=== PATIENT | male | born 1970 | race Caucasian/White ===

== ENCOUNTER 2017-10-09 19:34 | Inpatient (IN) | payer MEDICAID ==
[~2017-10-09] VITALS: Ht 167.6 cm; Wt 78.9 kg
[2017-10-09] MEDS ORDERED: cloNIDine HCL 0.1 MG TAB ONE (20:21)
[2017-10-09] MEDS ORDERED: cloNIDine HCL 0.1 MG TAB PO ONE ×2 (21:00→22:30)
[2017-10-09 21:12] LABS: Basophils # (auto) 0.1 uL; Basophils % (auto) 0.8 % (0.0-2.0); Eosinophils # (auto) 0 uL; Lymphocytes # (auto) 2.1 uL; Red Cell Distribution Width 19.7 % (11.8-14.3)
[2017-10-09 21:15] LABS: Eosinophils % (auto) 0.1 % (0.0-7.0); Hematocrit 45.7 % (41.0-53.0); Hemoglobin 14.3 g/dL (13.5-17.5); Lymphocytes % (auto) 14.4 % (10.0-50.0); Mean Corpuscular Hemoglobin 24.4 pg (28.0-32.0); Mean Corpuscular Hgb Conc. 31.4 g/dL (32.0-36.0); Mean Corpuscular Volume 77.8 fL (80.0-100.0); Monocytes # (auto) 1.3 uL; Monocytes % (auto) 8.9 % (0.0-12.0); Neutrophils # (auto) 11.3 uL; Neutrophils % (auto) 75.8 % (37.0-80.0); Nucleated Red Blood Cells % 0.1 %; Platelet Count (auto) 330 10^3/uL (140-450); Red Blood Cells 5.87 10^6/uL (4.5-5.90); White Blood Cell 14.9 10^3/uL (4.4-10.8)
[2017-10-09 21:28] LABS: Albumin 3.3 g/dL (3.4-5.0); BUN/Creatinine Ratio 26.8; Calcium 8.5 mg/dL (8.5-10.1); Potassium 4.2 mmol/L (3.5-5.1); Total Protein 7.2 g/dL (6.4-8.2)
[2017-10-09] MEDS ORDERED: SODIUM CHLORIDE 0.9% 1,000 ML IV ONE (22:45)
[2017-10-09] MEDS ORDERED: FUROSEMIDE 20 MG/2 ML VIAL IV ONE (23:30)
[2017-10-09] MEDS ORDERED: LABETALOL HCL 200 MG TAB PO ONE (23:30)
[2017-10-10 00:22] LABS: Urine Bacteria NONE SEEN /hpf (None Seen); Urine Blood TRACE /uL (Negative); Urine Hyaline Cast MOD /lpf (0 - 2); Urine Mucus FEW (None Seen); Urine Sperm PRESENT /hpf (None Seen); Urine WBC 1 /hpf (0 - 3)
[2017-10-10 00:36] LABS: Alcohol, Urine < 3.0 mg/dL (0-5); Amphetamine Screen, Urine POSITIVE (NEGATIVE); Barbiturate Scree,Urine NEGATIVE (NEGATIVE); Benzodiazephine Screen, Urine NEGATIVE (NEGATIVE); Cannabinoid Screen, Urine NEGATIVE (NEGATIVE); Cocaine Screen, Urine NEGATIVE (NEGATIVE); Opiate Scree,Urine NEGATIVE (NEGATIVE); Phencyclidine Screen, Urine NEGATIVE (NEGATIVE)
[2017-10-10] MEDS ORDERED: ACETAMINOPHEN 325 MG TAB PO PRN (03:15)
[2017-10-10] MEDS ORDERED: LEVOFLOXACIN 500MG 100 ML IV ONE (03:15)
[2017-10-10] MEDS ORDERED: ENALAPRILAT 1.25 MG/ML-1ML VIAL IV ONE (03:15)
[2017-10-10] MEDS ORDERED: NITROGLYCERIN 0.4 MG SL TAB SL PRN (03:15)
[2017-10-10] MEDS ORDERED: ONDANSETRON HCL 4 MG/2 ML VIAL IV PRN (03:15)
[2017-10-10] MEDS ORDERED: cloNIDine HCL 0.1 MG TAB PO PRN (03:15)
[2017-10-10] MEDS ORDERED: METOPROLOL TARTRATE 25 MG TAB PO ONE (03:15)
[2017-10-10] MEDS ORDERED: HYDROcodone-ACET 5/325MG TAB PO PRN (03:15)
[2017-10-10] MEDS ORDERED: MORPHINE SULFATE 4 MG/ML SYR/VIAL IV PRN (03:15)
[2017-10-10] MEDS ORDERED: hydrALAZINE HCL 20 MG/ML VL ONE (06:38)
[2017-10-10] MEDS ORDERED: hydrALAZINE HCL 20 MG/ML VL IV ONE (06:45)
[2017-10-10 09:10] VITALS: BP 154/106
[2017-10-10] MEDS: FUROSEMIDE 20 MG TAB PO SCH (09:36)
[2017-10-10] MEDS: FAMOTIDINE 20 MG TAB PO SCH ×2 (09:36→22:24)
[2017-10-10] MEDS: ASPirin 81 mg TAB PO SCH (09:37)
[2017-10-10] MEDS: ENOXAPARIN SOD 40 MG/0.4 ML SYRINGE SC SCH (09:38)
[2017-10-10] MEDS ORDERED: ENOXAPARIN SOD 30 MG/0.3 ML SYRINGE SC SCH (10:00)
[2017-10-10] MEDS ORDERED: LISINOPRIL 5 MG TAB PO SCH (10:00)
[2017-10-10] MEDS ORDERED: METOPROLOL TARTRATE 25 MG TAB PO SCH (10:00)
[2017-10-10 10:53] VITALS: BP 149/100
[2017-10-10] MEDS ORDERED: hydrALAZINE HCL 20 MG/ML VL IV PRN (11:45)
[2017-10-10 11:54] VITALS: BP 164/123
[2017-10-10] MEDS ORDERED: BUMETANIDE (0.25MG/ML) 4 ML VIAL IV ONE (14:00)
[2017-10-10] MEDS: hydrALAZINE HCL 25 MG TAB PO SCH ×2 (14:59→22:23)
[2017-10-10] MEDS ORDERED: LISINOPRIL 5 MG TAB PO ONE (15:30)
[2017-10-10 16:59] VITALS: BP 139/95
[2017-10-10 17:15] LABS: Albumin 2.9 g/dL (3.4-5.0)
[2017-10-10 17:18] LABS: Bilirubin, Total 1.6 mg/dL (0.2-1.0); Total Protein 6.7 g/dL (6.4-8.2)
[2017-10-10 17:22] LABS: Bilirubin, Direct 0.7 mg/dL (0-0.2)
[2017-10-10 20:00] VITALS: BP 143/86
[2017-10-10] MEDS: CARVEDILOL 3.125 MG TAB PO SCH (22:23)
[2017-10-10] MEDS: TEMAZEPAM 15 MG CAP PO PRN (22:24)
[2017-10-10 22:56] VITALS: BP 143/86
[2017-10-11 05:19] VITALS: BP 141/95
[2017-10-11 07:48] LABS: Basophils # (auto) 0.1 uL; Eosinophils # (auto) 0.2 uL; Hemoglobin 12.4 g/dL (13.5-17.5); Monocytes % (auto) 12.9 % (0.0-12.0)
[2017-10-11 07:51] LABS: Basophils % (auto) 1.1 % (0.0-2.0); Eosinophils % (auto) 1.5 % (0.0-7.0); Hematocrit 39.1 % (41.0-53.0); Lymphocytes # (auto) 1.7 uL; Lymphocytes % (auto) 16.5 % (10.0-50.0); Mean Corpuscular Hemoglobin 24.2 pg (28.0-32.0); Mean Corpuscular Hgb Conc. 31.7 g/dL (32.0-36.0); Mean Corpuscular Volume 76.1 fL (80.0-100.0); Monocytes # (auto) 1.3 uL; Nucleated Red Blood Cells % 0.1 %; Platelet Count (auto) 213 10^3/uL (140-450); Red Blood Cells 5.14 10^6/uL (4.5-5.90); Red Cell Distribution Width 19.3 % (11.8-14.3); White Blood Cell 10.3 10^3/uL (4.4-10.8)
[2017-10-11 08:06] LABS: Albumin 2.2 g/dL (3.4-5.0); BUN/Creatinine Ratio 34.3; Calcium 7.6 mg/dL (8.5-10.1)
[2017-10-11 08:24] LABS: Bilirubin, Total 1.3 mg/dL (0.2-1.0); Total Protein 5.2 g/dL (6.4-8.2)
[2017-10-11 09:00] VITALS: BP 143/103
[2017-10-11] MEDS ORDERED: POTASSIUM CHLORIDE 40 MEQ, LIDOCAINE 1% (LOCAL ANESTH.) 4 ML in SODIUM CHL 0.9% 100 ML IV ONE (09:30)
[2017-10-11] MEDS ORDERED: BUMETANIDE (0.25 MG/ML) INJ 10ML IV ONE (10:00)
[2017-10-11] MEDS: ENOXAPARIN SOD 40 MG/0.4 ML SYRINGE SC SCH (10:08)
[2017-10-11] MEDS: LEVOFLOXACIN 500MG 100 ML IV SCH (10:08)
[2017-10-11] MEDS: FAMOTIDINE 20 MG TAB PO SCH ×2 (10:08→22:24)
[2017-10-11] MEDS: FUROSEMIDE 20 MG TAB PO SCH (10:09)
[2017-10-11] MEDS: ASPirin 81 mg TAB PO SCH (10:09)
[2017-10-11] MEDS: hydrALAZINE HCL 25 MG TAB PO SCH ×2 (10:10→22:23)
[2017-10-11] MEDS: LISINOPRIL 20 MG TAB PO SCH (10:10)
[2017-10-11] MEDS: CARVEDILOL 3.125 MG TAB PO SCH ×2 (10:11→22:24)
[2017-10-11 13:00] VITALS: BP 141/91
[2017-10-11 17:00] VITALS: BP 134/89
[2017-10-11 20:00] VITALS: BP 141/94
[2017-10-11 20:03] LABS: INR 1.24 (0.9-1.15); Prothrombin Time 13.6 sec (9.37-12.3)
[2017-10-11 21:41] VITALS: BP 160/102
[2017-10-11] MEDS: TEMAZEPAM 15 MG CAP PO PRN (22:24)
[2017-10-12 04:58] VITALS: BP 141/82
[2017-10-12 07:19] LABS: Basophils # (auto) 0.1 uL; Eosinophils # (auto) 0.1 uL; Eosinophils % (auto) 1.2 % (0.0-7.0); Hemoglobin 11.7 g/dL (13.5-17.5); Lymphocytes # (auto) 1.2 uL; Monocytes # (auto) 1.4 uL; White Blood Cell 8.8 10^3/uL (4.4-10.8)
[2017-10-12 07:22] LABS: Basophils % (auto) 0.6 % (0.0-2.0); Hematocrit 36.8 % (41.0-53.0); Lymphocytes % (auto) 13.6 % (10.0-50.0); Mean Corpuscular Hemoglobin 24.2 pg (28.0-32.0); Mean Corpuscular Hgb Conc. 31.8 g/dL (32.0-36.0); Mean Corpuscular Volume 76.1 fL (80.0-100.0); Monocytes % (auto) 15.8 % (0.0-12.0); Neutrophils % (auto) 68.8 % (37.0-80.0); Nucleated Red Blood Cells % 0.1 %; Platelet Count (auto) 239 10^3/uL (140-450); Red Blood Cells 4.84 10^6/uL (4.5-5.90); Red Cell Distribution Width 19.6 % (11.8-14.3)
[2017-10-12 07:38] LABS: Albumin 2.3 g/dL (3.4-5.0); BUN/Creatinine Ratio 34.7; Calcium 7.6 mg/dL (8.5-10.1)
[2017-10-12 07:40] LABS: Bilirubin, Total 0.9 mg/dL (0.2-1.0); Total Protein 5.4 g/dL (6.4-8.2)
[2017-10-12 07:49] LABS: Potassium 2.8 mmol/L (3.5-5.1)
[2017-10-12] MEDS ORDERED: POTASSIUM CHL 20MEQ/100ML 100 ML IV ONE (08:00)
[2017-10-12] MEDS ORDERED: POTASSIUM CHL 20 Meq TABLET PO ONE (08:00)
[2017-10-12 08:39] VITALS: BP 139/90
[2017-10-12] MEDS: ENOXAPARIN SOD 40 MG/0.4 ML SYRINGE SC SCH (10:00)
[2017-10-12] MEDS: FUROSEMIDE 20 MG TAB PO SCH (10:00)
[2017-10-12] MEDS: CARVEDILOL 3.125 MG TAB PO SCH ×2 (10:00→21:31)
[2017-10-12] MEDS: LISINOPRIL 20 MG TAB PO SCH (10:00)
[2017-10-12] MEDS: FAMOTIDINE 20 MG TAB PO SCH ×2 (10:00→21:31)
[2017-10-12] MEDS: ASPirin 81 mg TAB PO SCH (10:00)
[2017-10-12] MEDS ORDERED: LIDOCAINE HCL 2 %PF INJ 10ML AMP IJ ONE (10:41)
[2017-10-12] MEDS ORDERED: IODIXANOL 320MG/ML 100ML BTL IV ONE (10:41)
[2017-10-12] MEDS ORDERED: MIDAZOLAM HCL 1MG/1ML-2 ML VIAL ONE (10:56)
[2017-10-12] MEDS ORDERED: ANGIOMAX 250 MG VIAL IV ONE (10:56)
[2017-10-12] MEDS ORDERED: SODIUM CHL 0.9% 0 ML ONE (10:56)
[2017-10-12] MEDS ORDERED: fentaNYL CITRATE 100 MCG/2 ML VL ONE (10:56)
[2017-10-12] MEDS ORDERED: NITROGLYCERIN 0.4MG/DOSE SPRAY 4.9GM ONE (11:27)
[2017-10-12] MEDS ORDERED: hydrALAZINE HCL 20 MG/ML VL ONE (11:31)
[2017-10-12] MEDS ORDERED: METOPROLOL TARTRATE 1MG/1ML-5ML VIAL IV ONE (11:34)
[2017-10-12] MEDS ORDERED: BUMETANIDE (0.25 MG/ML) INJ 10ML IV ONE (11:45)
[2017-10-12] MEDS ORDERED: hydrALAZINE HCL 25 MG TAB PO ONE (12:00)
[2017-10-12] MEDS ORDERED: POTASSIUM CHLORIDE 80 MEQ, LIDOCAINE 1% (LOCAL ANESTH.) 6 ML in SODIUM CHL 0.9% 500 ML IV ONE (12:15)
[2017-10-12] MEDS ORDERED: POTASSIUM CHLORIDE 40 MEQ, LIDOCAINE 1% (LOCAL ANESTH.) 4 ML in SODIUM CHL 0.9% 100 ML IV ONE (13:30)
[2017-10-12] MEDS: LEVOFLOXACIN 500MG 100 ML IV SCH (14:03)
[2017-10-12 14:25] VITALS: BP 138/93
[2017-10-12 17:44] VITALS: BP 145/89
[2017-10-12] MEDS: hydrALAZINE HCL 25 MG TAB PO SCH (21:30)
[2017-10-12] MEDS: TEMAZEPAM 15 MG CAP PO PRN (21:31)
[2017-10-12] MEDS: POTASSIUM CHL 20 Meq TABLET PO SCH (21:31)
[2017-10-12 21:44] VITALS: BP 141/102
[2017-10-13 05:00] VITALS: BP 147/98
[2017-10-13 06:41] LABS: Mean Corpuscular Volume 76.5 fL (80.0-100.0); Red Blood Cells 4.65 10^6/uL (4.5-5.90)
[2017-10-13 06:42] LABS: Hematocrit 35.6 % (41.0-53.0); Hemoglobin 11.4 g/dL (13.5-17.5); Mean Corpuscular Hemoglobin 24.5 pg (28.0-32.0); Platelet Count (auto) 230 10^3/uL (140-450); Red Cell Distribution Width 19.3 % (11.8-14.3); White Blood Cell 9.4 10^3/uL (4.4-10.8)
[2017-10-13 06:56] LABS: Band Neutrophils % (manual) 0; Basophils % (manual) 0 (0.0-2.0); Metamyelocytes % 0; Myelocytes % 0
[2017-10-13 06:57] LABS: Blast Cells 0; Promyelocytes % 0; Reactive Lymphocytes 0
[2017-10-13 07:05] LABS: Albumin 2.3 g/dL (3.4-5.0); BUN/Creatinine Ratio 34.9; Calcium 7.7 mg/dL (8.5-10.1); Magnesium 1.8 mg/dL (1.6-2.6)
[2017-10-13 07:09] LABS: Bilirubin, Total 0.9 mg/dL (0.2-1.0); Total Protein 5.9 g/dL (6.4-8.2)
[2017-10-13 08:08] LABS: Eosinophils % (manual) 2 (0-7); Lymphocytes % (manual) 21 (10.0-50.0); Monocytes % (manual) 15 (0-12)
[2017-10-13 08:37] VITALS: BP 152/122
[2017-10-13] MEDS ORDERED: LABETALOL HCL 5 MG/ML ML 20ML VIAL IV ONE (09:58)
[2017-10-13 09:59] LABS: Hepatitis B Surface Antibody Negative
[2017-10-13] MEDS ORDERED: LABETALOL HCL 5 MG/ML ML 20ML VIAL IV PRN (10:00)
[2017-10-13] MEDS: LEVOFLOXACIN 500MG 100 ML IV SCH (10:00)
[2017-10-13] MEDS: ENOXAPARIN SOD 40 MG/0.4 ML SYRINGE SC SCH (10:00)
[2017-10-13 10:10] LABS: Hepatitis B Surface Antigen Negative (Negative)
[2017-10-13 10:37] LABS: Hepatitis C Antibody Negative (Negative)
[2017-10-13 10:38] LABS: Hepatitis A Total Antibody Negative; Hepatitis B Core Total AB Negative
[2017-10-13] MEDS: CARVEDILOL 3.125 MG TAB PO SCH (10:42)
[2017-10-13] MEDS: ASPirin 81 mg TAB PO SCH (10:42)
[2017-10-13] MEDS: FUROSEMIDE 20 MG TAB PO SCH (10:43)
[2017-10-13] MEDS: LISINOPRIL 20 MG TAB PO SCH (10:43)
[2017-10-13] MEDS: FAMOTIDINE 20 MG TAB PO SCH (10:43)
[2017-10-13] MEDS: hydrALAZINE HCL 25 MG TAB PO SCH (10:44)
[2017-10-13] MEDS: POTASSIUM CHL 20 Meq TABLET PO SCH (10:44)
[2017-10-13 13:03] VITALS: BP 131/92
== END 2017-10-13 19:00 | disposition home or self-care (01) | DRG 720 ==
LOC: ER 19:34 → TELE 19:35 → TELE-CENTR 10-10 07:37
PROVIDERS: ADMIT Nurse Practitioner; ATTEND Internal Medicine
PROC: 4A023N7 Measurement of Cardiac Sampling and Pressure, Left Heart, Percutaneous Approach (ICD-10-PCS; principal; 2017-10-12)
PROC: B2111ZZ Fluoroscopy of Multiple Coronary Arteries using Low Osmolar Contrast (ICD-10-PCS; 2017-10-12)
DX: A41.9 Sepsis, unspecified organism (principal); I21.4 Non-ST elevation (NSTEMI) myocardial infarction; I50.43 Acute on chronic combined systolic (congestive) and diastolic (congestive) heart failure; N17.9 Acute kidney failure, unspecified; J18.9 Pneumonia, unspecified organism; I13.0 Hypertensive heart and chronic kidney disease with heart failure and stage 1 through stage 4 chronic kidney disease, or unspecified chronic kidney disease; R18.8 Other ascites; I16.1 Hypertensive emergency; E87.6 Hypokalemia; F10.10 Alcohol abuse, uncomplicated; F15.10 Other stimulant abuse, uncomplicated; F17.210 Nicotine dependence, cigarettes, uncomplicated; I70.0 Atherosclerosis of aorta; N18.9 Chronic kidney disease, unspecified; N48.89 Other specified disorders of penis; N50.89 Other specified disorders of the male genital organs; Z91.19 Patient's noncompliance with other medical treatment and regimen
CPT/HCPCS: 36415; 71045; 71250; 74176; 76705; 80053; 80076; 80307; 81001; 82140; 83735; 83880; 84484; 85007; 85025; 85027; 85610; 86704; 86706; 86708; 86803; 86850; 86900; 86901; 87340; 93005; 93306; 93458; 96365; 96375; 99152; J1956; J2001; J2250; J3480; Q9967

== ENCOUNTER 2018-03-12 17:56 | Inpatient (IN) | payer MEDICAID ==
[~2018-03-12] VITALS: Ht 167.6 cm; Wt 83.8 kg
[2018-03-12] MEDS ORDERED: cloNIDine HCL 0.1 MG TAB ONE (18:11)
[2018-03-12] MEDS ORDERED: cloNIDine HCL 0.1 MG TAB PO ONE (18:15)
[2018-03-12] MEDS ORDERED: FUROSEMIDE 40 MG/4 ML VIAL IV ONE (19:15)
[2018-03-12 20:01] LABS: Eosinophils # (auto) 0.1 uL; Hemoglobin 12.3 g/dL (13.5-17.5); Mean Corpuscular Hgb Conc. 32.3 g/dL (32.0-36.0); Nucleated Red Blood Cells % 0.1 %; Red Blood Cells 5.47 10^6/uL (4.5-5.90)
[2018-03-12 20:03] LABS: Basophils # (auto) 0.1 uL; Basophils % (auto) 1.2 % (0.0-2.0); Eosinophils % (auto) 1.6 % (0.0-7.0); Lymphocytes # (auto) 1.8 uL; Lymphocytes % (auto) 21.9 % (10.0-50.0); Mean Corpuscular Hemoglobin 22.4 pg (28.0-32.0); Mean Corpuscular Volume 69.5 fL (80.0-100.0); Monocytes # (auto) 0.8 uL; Neutrophils # (auto) 5.6 uL; Neutrophils % (auto) 66.3 % (37.0-80.0); Platelet Count (auto) 229 10^3/uL (140-450); Red Cell Distribution Width 19.7 % (11.8-14.3); White Blood Cell 8.4 10^3/uL (4.4-10.8)
[2018-03-12 20:26] LABS: Albumin 2.9 g/dL (3.4-5.0); BUN/Creatinine Ratio 28.2; Calcium 7.9 mg/dL (8.5-10.1); Magnesium 1.9 mg/dL (1.6-2.6); Potassium 3.3 mmol/L (3.5-5.1)
[2018-03-12 20:31] LABS: Bilirubin, Total 1.4 mg/dL (0.2-1.0); Total Protein 6.3 g/dL (6.4-8.2)
[2018-03-12] MEDS ORDERED: MORPHINE SULF INJ 2 MG/ML SYRINGE 1ML ONE (20:37)
[2018-03-12] MEDS ORDERED: ENALAPRIL MALEATE 2.5 MG TAB ONE (20:38)
[2018-03-12] MEDS ORDERED: PROMETHAZINE HCL 25 MG/ML 1ML ONE (20:48)
[2018-03-12] MEDS ORDERED: ACETAMINOPHEN 325 MG TAB PO PRN (21:00)
[2018-03-12] MEDS ORDERED: DOCUSATE SOD 100 MG CAP PO PRN (21:00)
[2018-03-12] MEDS ORDERED: MORPHINE SULF INJ 2 MG/ML SYRINGE 1ML IV PRN (21:00)
[2018-03-12] MEDS ORDERED: NITROGLYCERIN 0.4 MG SL TAB SL PRN (21:00)
[2018-03-12] MEDS ORDERED: ENALAPRILAT 1.25 MG/ML-1ML VIAL IV ONE (21:00)
[2018-03-12] MEDS ORDERED: MORPHINE SULF INJ 2 MG/ML SYRINGE 1ML IV ONE (21:00)
[2018-03-12] MEDS ORDERED: POTASSIUM CHL 20 Meq TABLET PO ONE (21:00)
[2018-03-12] MEDS ORDERED: PROMETHAZINE HCL 25 MG/ML 1ML IV ONE (21:00)
[2018-03-12] MEDS ORDERED: HYDROcodone-ACET 5/325MG TAB PO PRN (21:00)
[2018-03-12 21:30] LABS: Urine Bacteria FEW /hpf (None Seen); Urine Blood TRACE /uL (Negative); Urine Specific Gravity 1.012 (1.001-1.035); Urine WBC 1 /hpf (0 - 3)
[2018-03-12 21:46] LABS: Alcohol, Urine < 3.0 mg/dL (0-5); Amphetamine Screen, Urine POSITIVE (NEGATIVE); Barbiturate Scree,Urine NEGATIVE (NEGATIVE); Benzodiazephine Screen, Urine NEGATIVE (NEGATIVE); Cannabinoid Screen, Urine NEGATIVE (NEGATIVE); Cocaine Screen, Urine NEGATIVE (NEGATIVE); Opiate Scree,Urine NEGATIVE (NEGATIVE); Phencyclidine Screen, Urine NEGATIVE (NEGATIVE)
[2018-03-12] MEDS: hydrALAZINE HCL 25 MG TAB PO SCH (22:06)
[2018-03-12] MEDS: FAMOTIDINE 20 MG TAB PO SCH (22:14)
[2018-03-12] MEDS: CARVEDILOL 3.125 MG TAB PO SCH (22:14)
[2018-03-12] MEDS ORDERED: cloNIDine HCL 0.1 MG TAB PO PRN (23:00)
[2018-03-13] MEDS ORDERED: cloNIDine HCL 0.1 MG TAB ONE (00:32)
[2018-03-13] MEDS ORDERED: ENALAPRILAT 1.25 MG/ML-1ML VIAL IV ONE (01:15)
[2018-03-13 02:30] VITALS: BP 143/94
[2018-03-13 05:00] VITALS: BP 139/100
[2018-03-13] MEDS: FUROSEMIDE 20 MG/2 ML VIAL IV SCH ×2 (05:49→18:19)
[2018-03-13 07:14] LABS: Eosinophils # (auto) 0.2 uL; Nucleated Red Blood Cells % 0.1 %
[2018-03-13 07:16] LABS: Basophils # (auto) 0.2 uL; Basophils % (auto) 2.4 % (0.0-2.0); Eosinophils % (auto) 2.6 % (0.0-7.0); Hematocrit 35.2 % (41.0-53.0); Hemoglobin 11.4 g/dL (13.5-17.5); Lymphocytes # (auto) 1.6 uL; Lymphocytes % (auto) 21.6 % (10.0-50.0); Mean Corpuscular Hemoglobin 22.5 pg (28.0-32.0); Mean Corpuscular Hgb Conc. 32.4 g/dL (32.0-36.0); Mean Corpuscular Volume 69.6 fL (80.0-100.0); Monocytes # (auto) 0.7 uL; Monocytes % (auto) 9.3 % (0.0-12.0); Neutrophils # (auto) 4.6 uL; Neutrophils % (auto) 64.1 % (37.0-80.0); Platelet Count (auto) 192 10^3/uL (140-450); Red Blood Cells 5.06 10^6/uL (4.5-5.90); Red Cell Distribution Width 19.5 % (11.8-14.3); White Blood Cell 7.2 10^3/uL (4.4-10.8)
[2018-03-13 07:42] LABS: Albumin 2.6 g/dL (3.4-5.0); Potassium 3.3 mmol/L (3.5-5.1)
[2018-03-13 07:50] LABS: BUN/Creatinine Ratio 27.8; Calcium 8.2 mg/dL (8.5-10.1); Total Protein 5.1 g/dL (6.4-8.2)
[2018-03-13 07:57] LABS: Bilirubin, Total 1.6 mg/dL (0.2-1.0)
[2018-03-13 09:00] VITALS: BP 138/99
[2018-03-13] MEDS ORDERED: LISINOPRIL 20 MG TAB PO SCH (10:00)
[2018-03-13] MEDS: ASPirin 81 mg TAB PO SCH (10:38)
[2018-03-13] MEDS: hydrALAZINE HCL 25 MG TAB PO SCH ×2 (10:38→22:03)
[2018-03-13] MEDS: CARVEDILOL 3.125 MG TAB PO SCH ×2 (10:38→22:02)
[2018-03-13] MEDS: FAMOTIDINE 20 MG TAB PO SCH ×2 (10:39→22:02)
[2018-03-13] MEDS: ENOXAPARIN SOD 40 MG/0.4 ML SYRINGE SC SCH (10:39)
[2018-03-13] MEDS: POTASSIUM CHL 20 Meq TABLET PO SCH (10:39)
[2018-03-13] MEDS ORDERED: POTASSIUM CHL 20 Meq TABLET PO ONE (12:00)
[2018-03-13] MEDS ORDERED: cloNIDine HCL 0.1 MG TAB PO PRN (12:15)
[2018-03-13 13:00] VITALS: BP 113/79
[2018-03-13] MEDS ORDERED: CALCIUM CARB 500 MG CHEW TAB PO PRN (16:00)
[2018-03-13 17:20] VITALS: BP 116/75
[2018-03-13 22:00] VITALS: BP 126/86
[2018-03-14 05:00] VITALS: BP 143/99
[2018-03-14] MEDS: FUROSEMIDE 20 MG/2 ML VIAL IV SCH ×2 (05:34→17:23)
[2018-03-14 06:25] LABS: Mean Corpuscular Hemoglobin 22.3 pg (28.0-32.0); Monocytes # (auto) 0.7 uL; Nucleated Red Blood Cells % 0.1 %; Red Cell Distribution Width 19.3 % (11.8-14.3)
[2018-03-14 06:27] LABS: Basophils # (auto) 0.1 uL; Basophils % (auto) 2.1 % (0.0-2.0); Eosinophils # (auto) 0.2 uL; Eosinophils % (auto) 3.5 % (0.0-7.0); Hematocrit 35.5 % (41.0-53.0); Hemoglobin 11.2 g/dL (13.5-17.5); Lymphocytes # (auto) 1.5 uL; Mean Corpuscular Hgb Conc. 31.7 g/dL (32.0-36.0); Mean Corpuscular Volume 70.5 fL (80.0-100.0); Monocytes % (auto) 10.6 % (0.0-12.0); Neutrophils # (auto) 4.4 uL; Neutrophils % (auto) 62.8 % (37.0-80.0); Platelet Count (auto) 201 10^3/uL (140-450); Red Blood Cells 5.04 10^6/uL (4.5-5.90)
[2018-03-14 06:54] LABS: BUN/Creatinine Ratio 27.8; Calcium 7.8 mg/dL (8.5-10.1); Potassium 3.4 mmol/L (3.5-5.1)
[2018-03-14] MEDS ORDERED: POTASSIUM EFFERVESENT TAB 25 MEQ PO ONE (08:00)
[2018-03-14 09:00] VITALS: BP 152/86
[2018-03-14] MEDS: CARVEDILOL 3.125 MG TAB PO SCH ×2 (10:50→22:11)
[2018-03-14] MEDS: ASPirin 81 mg TAB PO SCH (10:51)
[2018-03-14] MEDS: hydrALAZINE HCL 25 MG TAB PO SCH ×2 (10:51→22:08)
[2018-03-14] MEDS: LISINOPRIL 20 MG TAB PO SCH (10:52)
[2018-03-14] MEDS: POTASSIUM CHL 20 Meq TABLET PO SCH (10:52)
[2018-03-14] MEDS: ENOXAPARIN SOD 40 MG/0.4 ML SYRINGE SC SCH (10:53)
[2018-03-14] MEDS: FAMOTIDINE 20 MG TAB PO SCH ×2 (10:53→22:08)
[2018-03-14 13:00] VITALS: BP 145/99
[2018-03-14 17:07] VITALS: BP 136/96
[2018-03-14 22:00] VITALS: BP 135/88
[2018-03-15] MEDS: FUROSEMIDE 20 MG/2 ML VIAL IV SCH (05:31)
[2018-03-15 05:45] VITALS: BP 130/92
[2018-03-15 07:09] LABS: Basophils # (auto) 0.2 uL; Eosinophils # (auto) 0.3 uL; Lymphocytes # (auto) 1.7 uL; Monocytes # (auto) 1.1 uL; White Blood Cell 8.6 10^3/uL (4.4-10.8)
[2018-03-15 07:13] LABS: Basophils % (auto) 2.3 % (0.0-2.0); Hematocrit 36.3 % (41.0-53.0); Hemoglobin 11.4 g/dL (13.5-17.5); Lymphocytes % (auto) 20.4 % (10.0-50.0); Mean Corpuscular Hgb Conc. 31.5 g/dL (32.0-36.0); Mean Corpuscular Volume 70.3 fL (80.0-100.0); Monocytes % (auto) 13.1 % (0.0-12.0); Neutrophils # (auto) 5.2 uL; Neutrophils % (auto) 61.2 % (37.0-80.0); Platelet Count (auto) 225 10^3/uL (140-450); Red Blood Cells 5.16 10^6/uL (4.5-5.90); Red Cell Distribution Width 19.2 % (11.8-14.3)
[2018-03-15 07:15] LABS: BUN/Creatinine Ratio 29.4; Calcium 8.1 mg/dL (8.5-10.1); Potassium 3.7 mmol/L (3.5-5.1)
[2018-03-15 07:16] LABS: Mean Corpuscular Hemoglobin 22.2 pg (28.0-32.0)
[2018-03-15 09:23] VITALS: BP 142/90
[2018-03-15] MEDS: ENOXAPARIN SOD 40 MG/0.4 ML SYRINGE SC SCH (10:43)
[2018-03-15] MEDS: CARVEDILOL 3.125 MG TAB PO SCH (10:44)
[2018-03-15] MEDS: ASPirin 81 mg TAB PO SCH (10:45)
[2018-03-15] MEDS: POTASSIUM CHL 20 Meq TABLET PO SCH (10:45)
[2018-03-15] MEDS: LISINOPRIL 20 MG TAB PO SCH (10:47)
[2018-03-15] MEDS: FAMOTIDINE 20 MG TAB PO SCH (10:47)
[2018-03-15] MEDS: hydrALAZINE HCL 25 MG TAB PO SCH (10:50)
[2018-03-15 13:00] VITALS: BP 145/95
== END 2018-03-15 14:10 | disposition home or self-care (01) | DRG 194 ==
LOC: ER 17:57 → TELE 17:58 → TELE-WESTW 03-13 02:06
PROVIDERS: ADMIT Nurse Practitioner; ATTEND Internal Medicine
DX: I11.0 Hypertensive heart disease with heart failure (principal); E43 Unspecified severe protein-calorie malnutrition; D63.8 Anemia in other chronic diseases classified elsewhere; E87.6 Hypokalemia; E78.5 Hyperlipidemia, unspecified; I16.0 Hypertensive urgency; F15.10 Other stimulant abuse, uncomplicated; M21.969 Unspecified acquired deformity of unspecified lower leg; M21.949 Unspecified acquired deformity of hand, unspecified hand; F17.210 Nicotine dependence, cigarettes, uncomplicated; I50.43 Acute on chronic combined systolic (congestive) and diastolic (congestive) heart failure; R07.89 Other chest pain; Z82.0 Family history of epilepsy and other diseases of the nervous system; Z81.8 Family history of other mental and behavioral disorders; Z80.42 Family history of malignant neoplasm of prostate; Z82.49 Family history of ischemic heart disease and other diseases of the circulatory system; Z88.3 Allergy status to other anti-infective agents; Z68.29 Body mass index [BMI] 29.0-29.9, adult; Z83.3 Family history of diabetes mellitus; Z91.14 Patient's other noncompliance with medication regimen
CPT/HCPCS: 36415; 51702; 71045; 80048; 80053; 80307; 81001; 83605; 83735; 83880; 84484; 85025; 93005; 93306; 94761; 96374; 96375; 96376; 99291

== ENCOUNTER 2018-04-13 17:17 | Inpatient (IN) | payer MEDICAID ==
[~2018-04-13] VITALS: Ht 167.6 cm; Wt 80.5 kg
[2018-04-13] MEDS ORDERED: cloNIDine HCL 0.1 MG TAB PO ONE (17:30)
[2018-04-13] MEDS ORDERED: FUROSEMIDE 40 MG/4 ML VIAL IV ONE (23:15)
[2018-04-13 23:42] LABS: Basophils # (auto) 0.1 uL; Eosinophils # (auto) 0.2 uL; Eosinophils % (auto) 2.2 % (0.0-7.0); Hemoglobin 12.6 g/dL (13.5-17.5); Monocytes # (auto) 0.8 uL
[2018-04-13 23:44] LABS: Hematocrit 39.5 % (41.0-53.0); Lymphocytes % (auto) 23.2 % (10.0-50.0); Mean Corpuscular Hemoglobin 21.4 pg (28.0-32.0); Mean Corpuscular Hgb Conc. 31.8 g/dL (32.0-36.0); Mean Corpuscular Volume 67.2 fL (80.0-100.0); Monocytes % (auto) 9.8 % (0.0-12.0); Neutrophils # (auto) 5.5 uL; Neutrophils % (auto) 63.8 % (37.0-80.0); Platelet Count (auto) 212 10^3/uL (140-450); Red Blood Cells 5.88 10^6/uL (4.5-5.90); White Blood Cell 8.6 10^3/uL (4.4-10.8)
[2018-04-13 23:47] LABS: Urine Bacteria NONE SEEN /hpf (None Seen); Urine Blood Negative /uL (Negative); Urine Specific Gravity 1.008 (1.001-1.035); Urine WBC 1 /hpf (0 - 3)
[2018-04-13 23:51] LABS: Red Cell Distribution Width 20.9 % (11.8-14.3)
[2018-04-13 23:59] LABS: Potassium 3.4 mmol/L (3.5-5.1)
[2018-04-14] LABS: INR 1.23 (0.9-1.15); Partial Thromboplastin Time 26.7 sec (23.78-33.04)
[2018-04-14 00:01] LABS: Alcohol, Urine < 3.0 mg/dL (0-5); Amphetamine Screen, Urine POSITIVE (NEGATIVE); Barbiturate Scree,Urine NEGATIVE (NEGATIVE); Benzodiazephine Screen, Urine NEGATIVE (NEGATIVE); Cannabinoid Screen, Urine NEGATIVE (NEGATIVE); Cocaine Screen, Urine NEGATIVE (NEGATIVE); Opiate Scree,Urine NEGATIVE (NEGATIVE); Phencyclidine Screen, Urine NEGATIVE (NEGATIVE)
[2018-04-14 00:04] LABS: BUN/Creatinine Ratio 26.9; Calcium 7.7 mg/dL (8.5-10.1); Magnesium 1.8 mg/dL (1.6-2.6)
[2018-04-14 00:08] LABS: Bilirubin, Total 1.6 mg/dL (0.2-1.0); Total Protein 6.5 g/dL (6.4-8.2)
[2018-04-14] MEDS ORDERED: IOHEXOL 350 MG/ML 100ML IJ ONE (01:12)
[2018-04-14] MEDS ORDERED: cloNIDine HCL 0.1 MG TAB ONE (03:03)
[2018-04-14] MEDS ORDERED: ACETAMINOPHEN 325 MG TAB PO PRN (04:30)
[2018-04-14] MEDS ORDERED: HYDROcodone-ACET 5/325MG TAB PO PRN (04:30)
[2018-04-14] MEDS ORDERED: MORPHINE SULFATE 4 MG/ML SYR/VIAL IV PRN (04:30)
[2018-04-14] MEDS ORDERED: TEMAZEPAM 15 MG CAP PO PRN (04:30)
[2018-04-14] MEDS ORDERED: NITROGLYCERIN 0.4 MG SL TAB SL PRN (04:30)
[2018-04-14] MEDS ORDERED: ONDANSETRON HCL 4 MG/2 ML VIAL IV PRN (04:30)
[2018-04-14] MEDS ORDERED: ENALAPRILAT 1.25 MG/ML-1ML VIAL IV ONE ×2 (04:45→04:59)
[2018-04-14] MEDS ORDERED: FUROSEMIDE 20 MG/2 ML VIAL IV SCH (06:00)
[2018-04-14] MEDS: CARVEDILOL 3.125 MG TAB PO SCH ×2 (07:14→18:58)
[2018-04-14] MEDS ORDERED: cloNIDine HCL 0.1 MG TAB PO PRN (07:15)
[2018-04-14 09:05] VITALS: BP 142/96
[2018-04-14] MEDS: hydrALAZINE HCL 25 MG TAB PO SCH ×2 (09:22→22:16)
[2018-04-14] MEDS: LISINOPRIL 20 MG TAB PO SCH (09:22)
[2018-04-14] MEDS: ASPirin 81 mg TAB PO SCH (09:23)
[2018-04-14] MEDS: FAMOTIDINE 20 MG TAB PO SCH ×2 (09:23→22:16)
[2018-04-14 09:30] VITALS: BP 142/96
[2018-04-14] MEDS ORDERED: cloNIDine HCL 0.1 MG TAB PO ONE (10:00)
[2018-04-14] MEDS ORDERED: POTASSIUM CHL 20 Meq TABLET PO ONE (11:15)
[2018-04-14] MEDS ORDERED: SULFAMETHOX W/TRIMETH(800/160MG) DS TAB PO ONE (11:15)
[2018-04-14 12:00] VITALS: BP 136/88
[2018-04-14] MEDS: SPIRONOLACTONE 25 MG TAB PO SCH (13:05)
[2018-04-14 16:54] VITALS: BP 136/94
[2018-04-14] MEDS: FUROSEMIDE 20 MG/2 ML VIAL IV SCH (18:58)
[2018-04-14 21:36] VITALS: BP 145/95
[2018-04-14] MEDS: SULFAMETHOX W/TRIMETH(800/160MG) DS TAB PO SCH (22:16)
[2018-04-15 04:43] VITALS: BP 153/102
[2018-04-15] MEDS: FUROSEMIDE 20 MG/2 ML VIAL IV SCH (05:39)
[2018-04-15 06:14] LABS: Lymphocytes # (auto) 1.6 uL
[2018-04-15 06:17] LABS: Basophils # (auto) 0.3 uL; Basophils % (auto) 4.1 % (0.0-2.0); Eosinophils # (auto) 0.3 uL; Hematocrit 34.9 % (41.0-53.0); Hemoglobin 11.1 g/dL (13.5-17.5); Mean Corpuscular Hemoglobin 21.3 pg (28.0-32.0); Mean Corpuscular Hgb Conc. 31.9 g/dL (32.0-36.0); Mean Corpuscular Volume 66.6 fL (80.0-100.0); Monocytes % (auto) 14.8 % (0.0-12.0); Neutrophils # (auto) 3.7 uL; Neutrophils % (auto) 53.1 % (37.0-80.0); Nucleated Red Blood Cells % 0.1 %; Red Blood Cells 5.23 10^6/uL (4.5-5.90); White Blood Cell 6.9 10^3/uL (4.4-10.8)
[2018-04-15 06:18] LABS: Red Cell Distribution Width 20.8 % (11.8-14.3)
[2018-04-15 06:19] LABS: Platelet Count (auto) 199 10^3/uL (140-450)
[2018-04-15 06:35] LABS: Albumin 2.6 g/dL (3.4-5.0); Calcium 8.1 mg/dL (8.5-10.1); Potassium 3.4 mmol/L (3.5-5.1)
[2018-04-15 06:37] LABS: BUN/Creatinine Ratio 27.3
[2018-04-15 06:40] LABS: Bilirubin, Total 1.2 mg/dL (0.2-1.0); Total Protein 5.8 g/dL (6.4-8.2)
[2018-04-15] MEDS ORDERED: POTASSIUM EFFERVESENT TAB 25 MEQ PO ONE (08:15)
[2018-04-15 08:42] VITALS: BP 158/104
[2018-04-15] MEDS: LISINOPRIL 20 MG TAB PO SCH (09:02)
[2018-04-15] MEDS: FAMOTIDINE 20 MG TAB PO SCH (09:03)
[2018-04-15] MEDS: ASPirin 81 mg TAB PO SCH (09:03)
[2018-04-15] MEDS: SPIRONOLACTONE 25 MG TAB PO SCH (09:03)
[2018-04-15] MEDS: SULFAMETHOX W/TRIMETH(800/160MG) DS TAB PO SCH (09:04)
[2018-04-15] MEDS: hydrALAZINE HCL 25 MG TAB PO SCH (09:04)
[2018-04-15] MEDS: CARVEDILOL 3.125 MG TAB PO SCH (09:04)
[2018-04-15] MEDS ORDERED: POTASSIUM CHL 20 Meq TABLET PO SCH (10:00)
== END 2018-04-15 12:25 | disposition home or self-care (01) | DRG 194 ==
LOC: ER 17:17 → TELE 17:18 → TELE-WESTW 04-14 09:11
PROVIDERS: ADMIT Nurse Practitioner; ATTEND Internal Medicine
DX: I11.0 Hypertensive heart disease with heart failure (principal); I27.21 Secondary pulmonary arterial hypertension; R18.8 Other ascites; E44.0 Moderate protein-calorie malnutrition; F15.20 Other stimulant dependence, uncomplicated; D63.8 Anemia in other chronic diseases classified elsewhere; E11.9 Type 2 diabetes mellitus without complications; E78.5 Hyperlipidemia, unspecified; E87.6 Hypokalemia; I50.43 Acute on chronic combined systolic (congestive) and diastolic (congestive) heart failure; Z68.28 Body mass index [BMI] 28.0-28.9, adult; F17.210 Nicotine dependence, cigarettes, uncomplicated; I16.0 Hypertensive urgency; M21.949 Unspecified acquired deformity of hand, unspecified hand; M21.969 Unspecified acquired deformity of unspecified lower leg; Z82.0 Family history of epilepsy and other diseases of the nervous system; Z91.19 Patient's noncompliance with other medical treatment and regimen; Z90.49 Acquired absence of other specified parts of digestive tract; R59.0 Localized enlarged lymph nodes
CPT/HCPCS: 36415; 71045; 71275; 80053; 80307; 80320; 81001; 83735; 83880; 84484; 85025; 85379; 85610; 85730; 93005; 94761; 96374; 96375; 96376

== ENCOUNTER 2018-06-22 16:17 | Emergency (ER) | payer MEDICAID ==
[~2018-06-22] VITALS: Ht 165.1 cm; Wt 72.6 kg
[2018-06-22 16:46] VITALS: BP 179/76
== END 2018-06-22 21:28 | disposition home or self-care (01) ==
LOC: ER 16:17
DX: S01.111A Laceration without foreign body of right eyelid and periocular area, initial encounter (principal); S09.8XXA Other specified injuries of head, initial encounter; I11.0 Hypertensive heart disease with heart failure; I50.9 Heart failure, unspecified; E78.5 Hyperlipidemia, unspecified; F17.210 Nicotine dependence, cigarettes, uncomplicated; F15.10 Other stimulant abuse, uncomplicated; W18.00XA Striking against unspecified object with subsequent fall, initial encounter; Y93.89 Activity, other specified; Y92.098 Other place in other non-institutional residence as the place of occurrence of the external cause; Y99.8 Other external cause status
CPT/HCPCS: 70450; 70486

== ENCOUNTER 2018-07-10 19:28 | Emergency (ER) | payer MEDICAID ==
[~2018-07-10] VITALS: Ht 165.1 cm; Wt 81.6 kg
[2018-07-10] MEDS ORDERED: cloNIDine HCL 0.1 MG TAB ONE (19:49)
[2018-07-10] MEDS ORDERED: cloNIDine HCL 0.1 MG TAB PO ONE (20:00)
[2018-07-10 21:06] LABS: Basophils # (auto) 0.1 uL
[2018-07-10 21:07] LABS: Eosinophils # (auto) 0.1 uL; Eosinophils % (auto) 1.6 % (0.0-7.0); Hematocrit 39.1 % (41.0-53.0); Lymphocytes # (auto) 1.4 uL; Lymphocytes % (auto) 14.5 % (10.0-50.0); Mean Corpuscular Hemoglobin 20.8 pg (28.0-32.0); Mean Corpuscular Hgb Conc. 30.8 g/dL (32.0-36.0); Mean Corpuscular Volume 67.4 fL (80.0-100.0); Monocytes # (auto) 0.9 uL; Monocytes % (auto) 9.2 % (0.0-12.0); Neutrophils % (auto) 73.7 % (37.0-80.0); Nucleated Red Blood Cells % 0.2 %; Platelet Count (auto) 229 10^3/uL (140-450); Red Blood Cells 5.79 10^6/uL (4.5-5.90); White Blood Cell 9.5 10^3/uL (4.4-10.8)
[2018-07-10 21:12] LABS: Albumin 3.1 g/dL (3.4-5.0); Calcium 7.9 mg/dL (8.5-10.1); Potassium 3.4 mmol/L (3.5-5.1)
[2018-07-10 21:17] LABS: BUN/Creatinine Ratio 31.5; Bilirubin, Total 1.4 mg/dL (0.2-1.0); Total Protein 6.9 g/dL (6.4-8.2)
[2018-07-10 21:18] LABS: Red Cell Distribution Width 21.6 % (11.8-14.3)
[2018-07-10 21:23] LABS: INR 1.14 (0.9-1.15); Partial Thromboplastin Time 26.4 sec (23.78-33.04); Prothrombin Time 12.1 sec (9.27-12.13)
[2018-07-11 00:30] VITALS: BP 160/92
== END 2018-07-11 02:59 | disposition left against medical advice (07) ==
LOC: ER 19:28
DX: R06.02 Shortness of breath (principal); Z53.21 Procedure and treatment not carried out due to patient leaving prior to being seen by health care provider
CPT/HCPCS: 36415; 71045; 80053; 83735; 83880; 84484; 85025; 85610; 85730; 93005

== ENCOUNTER 2018-08-20 04:09 | Inpatient (IN) | payer MEDICAID | END 2018-08-22 16:45 | disposition home or self-care (01) | LOC: ER 04:09 → TELE 08:44 → TELE-WESTW 17:56 | DX: I50.33 Acute on chronic diastolic (congestive) heart failure (principal); I21.4 Non-ST elevation (NSTEMI) myocardial infarction; I42.0 Dilated cardiomyopathy; R74.8 Abnormal levels of other serum enzymes; I16.0 Hypertensive urgency; D63.8 Anemia in other chronic diseases classified elsewhere; I11.0 Hypertensive heart disease with heart failure; M79.89 Other specified soft tissue disorders ==

== ENCOUNTER 2018-10-02 01:58 | Inpatient (IN) | payer MEDICAID ==
[~2018-10-02] VITALS: Ht 167.6 cm; Wt 77.1 kg
[2018-10-02] MEDS ORDERED: cloNIDine HCL 0.1 MG TAB PO ONE (02:30)
[2018-10-02 02:47] LABS: Eosinophils # (auto) 0 uL; Mean Corpuscular Volume 65.7 fL (80.0-100.0); Neutrophils # (auto) 9.3 uL
[2018-10-02 02:49] LABS: Basophils # (auto) 0.2 uL; Eosinophils % (auto) 0.1 % (0.0-7.0); Hematocrit 35.2 % (41.0-53.0); Hemoglobin 10.9 g/dL (13.5-17.5); Lymphocytes # (auto) 1.7 uL; Lymphocytes % (auto) 13.5 % (10.0-50.0); Mean Corpuscular Hemoglobin 20.4 pg (28.0-32.0); Mean Corpuscular Hgb Conc. 31.1 g/dL (32.0-36.0); Monocytes # (auto) 1.3 uL; Monocytes % (auto) 10.6 % (0.0-12.0); Neutrophils % (auto) 73.8 % (37.0-80.0); Nucleated Red Blood Cells % 0.2 %; Platelet Count (auto) 221 10^3/uL (140-450); Red Blood Cells 5.35 10^6/uL (4.5-5.90); White Blood Cell 12.6 10^3/uL (4.4-10.8)
[2018-10-02 02:51] LABS: Red Cell Distribution Width 26.6 % (11.8-14.3)
[2018-10-02 03:05] LABS: INR 1.69 (0.9-1.15); Partial Thromboplastin Time 28.9 sec (23.78-33.04); Prothrombin Time 17.6 sec (9.27-12.13)
[2018-10-02 03:20] LABS: Albumin 2.9 g/dL (3.4-5.0); BUN/Creatinine Ratio 37.3; Calcium 7.6 mg/dL (8.5-10.1); Potassium 3.9 mmol/L (3.5-5.1)
[2018-10-02 03:25] LABS: Bilirubin, Total 1.8 mg/dL (0.2-1.0); Total Protein 7.1 g/dL (6.4-8.2)
[2018-10-02] MEDS: cloNIDine HCL 0.1 MG TAB PO PRN ×2 (04:01→08:07)
[2018-10-02] MEDS ORDERED: FUROSEMIDE 40 MG/4 ML VIAL IV ONE (05:30)
[2018-10-02] MEDS ORDERED: FUROSEMIDE 20 MG/2 ML VIAL IV ONE (05:30)
[2018-10-02 06:26] LABS: Alcohol, Urine < 3.0 mg/dL (0-5); Barbiturate Scree,Urine NEGATIVE (NEGATIVE); Benzodiazephine Screen, Urine NEGATIVE (NEGATIVE); Cannabinoid Screen, Urine NEGATIVE (NEGATIVE)
[2018-10-02 06:36] LABS: Urine Bacteria NONE SEEN /hpf (None Seen); Urine Blood 1+ /uL (Negative); Urine Specific Gravity 1.024 (1.001-1.035); Urine Sperm PRESENT /hpf (None Seen); Urine WBC 2 /hpf (0 - 3)
[2018-10-02 07:23] LABS: Amphetamine Screen, Urine POSITIVE (NEGATIVE); Cocaine Screen, Urine NEGATIVE (NEGATIVE); Opiate Scree,Urine NEGATIVE (NEGATIVE); Phencyclidine Screen, Urine NEGATIVE (NEGATIVE)
[2018-10-02] MEDS ORDERED: cefTRIAXone 1GM/50ML D5W 50 ML IV ONE ×2 (07:30→08:12)
[2018-10-02] MEDS ORDERED: PROMETHAZINE HCL 25 MG/ML 1ML IV PRN (08:15)
[2018-10-02] MEDS ORDERED: NITROGLYCERIN 0.4 MG SL TAB SL PRN (08:15)
[2018-10-02] MEDS ORDERED: OSELTAMIVIR 75 MG CAP PO ONE (08:15)
[2018-10-02] MEDS ORDERED: TEMAZEPAM 15 MG CAP PO PRN (08:15)
[2018-10-02] MEDS ORDERED: ALBUTEROL SULF 2.5 MG/0.5ML(0.5%) NEB SOLN NEB PRN (08:15)
[2018-10-02] MEDS ORDERED: LACTULOSE 20Gm/30ML SOLN PO PRN (08:15)
[2018-10-02] MEDS ORDERED: LORazepam 0.5 MG TAB PO PRN (08:15)
[2018-10-02] MEDS ORDERED: traMADol HCL 50 MG TAB PO PRN (08:15)
[2018-10-02] MEDS ORDERED: MORPHINE SULF INJ 2 MG/ML SYRINGE 1ML IV PRN (08:15)
[2018-10-02] MEDS: FUROSEMIDE 40 MG/4 ML VIAL IV SCH ×2 (09:41→22:10)
[2018-10-02] MEDS: ENALAPRIL MALEATE 10 MG TAB PO SCH (09:43)
[2018-10-02] MEDS: PANTOPRAZOLE 40 MG TAB PO SCH (09:43)
[2018-10-02] MEDS: NITROGLYCERIN 0.2MG/HR TOPICAL PATCH TD SCH (09:44)
[2018-10-02] MEDS ORDERED: CARVEDILOL 3.125 MG TAB PO SCH (10:00)
[2018-10-02] MEDS ORDERED: OSELTAMIVIR 75 MG CAP PO SCH (10:00)
[2018-10-02] MEDS ORDERED: AZITHROMYCIN 500MG/ 250ML 250 ML IV SCH (10:00)
[2018-10-02] MEDS ORDERED: ENOXAPARIN SOD 40 MG/0.4 ML SYRINGE SC SCH ×2 (10:00)
--- NOTE | 2018-10-02 10:30 | NUR ---
Telemetry admit from ER JOHANNASTEFANIE admitted to Telemetry unit after SBAR received. Patient oriented to Germania Nieves primary RN, unit, room, bed, and unit policies regarding patient care and visiting hours. Patient now on continuous telemetry monitoring, tele box # 44 and telemetry reading on arrival to unit is ST 133. NO c/o cp, sob or any other discomfort. Patient placed on bedside oxygen, weighed by bedscale and encouraged to call if they need something. All questions and concerns addressed, patient verbalized understanding. Call light within reach, bed alarm activated, cont care
[2018-10-02] MEDS: ALBUTEROL SULF 2.5 MG/0.5ML(0.5%) NEB SOLN NEB SCH ×2 (11:33→19:48)
[2018-10-02] MEDS: IPRATROPIUM BROM 0.5 MG/2.5ML INH SOL NEB SCH ×2 (11:33→19:48)
[2018-10-02 11:52] VITALS: BP 144/86
--- NOTE | 2018-10-02 12:58 | NUR ---
PAGED DR SUSAN RODRIGUEZ, REGARDING EKG RESULTS, PT ASYMPTOMATIC, NO C/O CP, SON OR ANY OTHER DISCOMFORT, EKG RESULTS A-FIB WITH RVR 111, CONT CARE
[2018-10-02 13:00] VITALS: BP 120/83
[2018-10-02] MEDS: SODIUM CHLOR 0.9% PF (SALINE LOCK) 10ML VIAL/SYR IV SCH ×2 (14:00→22:18)
[2018-10-02] MEDS ORDERED: AMIODARONE HCL 200 MG TAB PO ONE (15:00)
--- NOTE | 2018-10-02 15:18 | NUR ---
CARDIO AT BEDSIDE DR MARQUEZ AT BEDSIDE, DISCUSSING POC, NEW ORDERS RECEIVED, CONT CARE
[2018-10-02] MEDS: CLINDAMYCIN 600MG IV 50 ML IV SCH ×2 (15:32→22:10)
--- NOTE | 2018-10-02 16:10 | NUR ---
SCD APPLIED TO BLE
[2018-10-02 17:00] VITALS: BP 121/75
--- NOTE | 2018-10-02 19:30 | NUR ---
Opening shift note Patient in bed sleeping with eyes closed. Non responsive to verbal stimuli. Patient's respiration even and unlabored, no non verbal cues to pain noted and observed. Will continue to monitor.
--- NOTE | 2018-10-02 19:54 | NUR ---
PT CARE ENDORSED TO NIGHT ADRIANA OLMOS PT AWAKE, AXOX4, ASYMPTOMATIC, NO C/O CP OR SOB, CALL LIGHT WITHIN REACH
[2018-10-02 20:00] VITALS: BP 138/93
[2018-10-02] MEDS ORDERED: AMIODARONE HCL 200 MG TAB PO SCH (22:00)
[2018-10-02 22:05] VITALS: BP 138/93
[2018-10-02] MEDS: AMIODARONE HCL 200 MG TAB PO SCH (22:10)
[2018-10-02] MEDS: METOPROLOL TARTRATE 50 MG TAB PO SCH (22:11)
[2018-10-02] MEDS: ENOXAPARIN SOD 100 MG/1 ML SYRINGE SC SCH (22:11)
[2018-10-03] MEDS: ALBUTEROL SULF 2.5 MG/0.5ML(0.5%) NEB SOLN NEB SCH ×4 (00:26→19:31)
[2018-10-03] MEDS: IPRATROPIUM BROM 0.5 MG/2.5ML INH SOL NEB SCH ×4 (00:26→19:31)
--- NOTE | 2018-10-03 04:30 | NUR ---
Resp Culture Specimen bottle provided. Instruction given to call nurse when sample obtained and available. Patient verbalized understanding.
[2018-10-03 05:09] VITALS: BP 124/82
--- NOTE | 2018-10-03 05:42 | NUR ---
Home Medication Per patient, will ask his father to bring in the list when he visits today.
[2018-10-03] MEDS: CLINDAMYCIN 600MG IV 50 ML IV SCH ×3 (05:48→21:47)
[2018-10-03] MEDS: SODIUM CHLOR 0.9% PF (SALINE LOCK) 10ML VIAL/SYR IV SCH ×3 (05:50→22:28)
[2018-10-03 06:08] LABS: Cholesterol 125 mg/dL (< 200); HDL Cholesterol 25 mg/dL (40-59); LDL Cholesterol 94 mg/dL (< 100); Triglycerides 67 mg/dL (< 150)
--- NOTE | 2018-10-03 07:10 | NUR ---
Opening Shift Note Assumed care of patient, awake and alert. No S/S of distress/SOB or pain. Instructed on POC and to call for assist PRN, will continue to monitor for changes Q1hr and PRN.
--- NOTE | 2018-10-03 08:32 | NUR ---
Dr. Franco at bedside discussing POC of with patient. MD looking at patient's heart rhythm on EKG/telemetry strips. MD aware of troponin levels. Per MD, patient can be discharged home after diuresis.
[2018-10-03 09:00] VITALS: BP 121/75
[2018-10-03] MEDS: NITROGLYCERIN 0.2MG/HR TOPICAL PATCH TD SCH (10:00)
[2018-10-03] MEDS: cefTRIAXone 1GM/50ML D5W 50 ML IV SCH (10:13)
[2018-10-03] MEDS: AMIODARONE HCL 200 MG TAB PO SCH ×2 (10:14→21:49)
[2018-10-03] MEDS: FUROSEMIDE 40 MG/4 ML VIAL IV SCH ×2 (10:14→21:48)
[2018-10-03] MEDS: PANTOPRAZOLE 40 MG TAB PO SCH (10:15)
[2018-10-03] MEDS: METOPROLOL TARTRATE 50 MG TAB PO SCH ×2 (10:15→21:49)
[2018-10-03] MEDS: ENOXAPARIN SOD 100 MG/1 ML SYRINGE SC SCH (10:16)
[2018-10-03] MEDS: ENALAPRIL MALEATE 10 MG TAB PO SCH (10:16)
[2018-10-03 12:48] VITALS: BP_SYST 124; BP_SYST 126; BP_DIAS 84; BP_DIAS 87
--- NOTE | 2018-10-03 15:45 | NUR ---
Called patient's pharmacy to get a list of home medications.
[2018-10-03] MEDS ORDERED: ASPI81TA27 PO (16:02)
[2018-10-03] MEDS ORDERED: LISI10TA6 PO (16:02)
[2018-10-03] MEDS ORDERED: METO25TA5 PO (16:02)
[2018-10-03] MEDS ORDERED: HYDR10TA26 PO (16:02)
[2018-10-03] MEDS ORDERED: FURO40TA4 PO (16:02)
[2018-10-03 16:51] VITALS: BP 134/98
--- NOTE | 2018-10-03 19:25 | NUR ---
Change of shift given to shift manager RN. No distress noted.
[2018-10-03 21:39] VITALS: BP 141/90
[2018-10-04 05:21] VITALS: BP 149/107
[2018-10-04 05:48] LABS: Basophils # (auto) 0.2 uL; Basophils % (auto) 2.2 % (0.0-2.0); Eosinophils # (auto) 0.3 uL; Hemoglobin 10.7 g/dL (13.5-17.5); Lymphocytes # (auto) 2.2 uL; Platelet Count (auto) 253 10^3/uL (140-450); Red Blood Cells 5.19 10^6/uL (4.5-5.90)
[2018-10-04 05:50] LABS: Eosinophils % (auto) 3.5 % (0.0-7.0); Hematocrit 34.1 % (41.0-53.0); Lymphocytes % (auto) 25.6 % (10.0-50.0); Mean Corpuscular Hemoglobin 20.7 pg (28.0-32.0); Mean Corpuscular Hgb Conc. 31.5 g/dL (32.0-36.0); Mean Corpuscular Volume 65.7 fL (80.0-100.0); Monocytes # (auto) 1.4 uL; Monocytes % (auto) 15.7 % (0.0-12.0); Neutrophils # (auto) 4.6 uL; Nucleated Red Blood Cells % 0.2 %; White Blood Cell 8.6 10^3/uL (4.4-10.8)
[2018-10-04 06:04] LABS: Calcium 7.7 mg/dL (8.5-10.1); Magnesium 2.1 mg/dL (1.6-2.6)
[2018-10-04 06:07] LABS: BUN/Creatinine Ratio 28.8
[2018-10-04 06:09] LABS: Red Cell Distribution Width 26.4 % (11.8-14.3)
[2018-10-04] MEDS: CLINDAMYCIN 600MG IV 50 ML IV SCH ×2 (06:17→13:29)
[2018-10-04] MEDS: SODIUM CHLOR 0.9% PF (SALINE LOCK) 10ML VIAL/SYR IV SCH ×2 (06:17→14:00)
[2018-10-04] MEDS: IPRATROPIUM BROM 0.5 MG/2.5ML INH SOL NEB SCH ×4 (07:05→19:28)
[2018-10-04] MEDS: ALBUTEROL SULF 2.5 MG/0.5ML(0.5%) NEB SOLN NEB SCH ×4 (07:06→19:28)
[2018-10-04 09:47] VITALS: BP 155/111
[2018-10-04] MEDS: AMIODARONE HCL 200 MG TAB PO SCH (10:37)
[2018-10-04] MEDS: PANTOPRAZOLE 40 MG TAB PO SCH (10:38)
[2018-10-04] MEDS: METOPROLOL TARTRATE 50 MG TAB PO SCH (10:38)
[2018-10-04] MEDS: ENALAPRIL MALEATE 10 MG TAB PO SCH (10:38)
[2018-10-04] MEDS: NITROGLYCERIN 0.2MG/HR TOPICAL PATCH TD SCH (10:39)
[2018-10-04] MEDS: FUROSEMIDE 40 MG/4 ML VIAL IV SCH (10:39)
[2018-10-04] MEDS: cefTRIAXone 1GM/50ML D5W 50 ML IV SCH (10:39)
[2018-10-04] MEDS ORDERED: POTASSIUM CHL 20 Meq TABLET PO ONE (11:15)
--- NOTE | 2018-10-04 12:28 | NUR ---
Patient complained of SOB and "shallow" chest pain. Patient placed on 2l NC. EKG obtained. BP 157/115, HR 67, SpO2 98%, RR 20. EKG shown to Dr. Fernandez. Per MD, order one time dose of medication nebulizers and obtain CXR.
[2018-10-04] MEDS ORDERED: IPRATROPIUM BROM 0.5 MG/2.5ML INH SOL NEB ONE (12:45)
[2018-10-04] MEDS ORDERED: ALBUTEROL SULF 2.5 MG/0.5ML(0.5%) NEB SOLN NEB ONE (12:45)
[2018-10-04 13:00] VITALS: BP 152/108
[2018-10-04] MEDS: cloNIDine HCL 0.1 MG TAB PO PRN (13:30)
--- NOTE | 2018-10-04 13:30 | NUR ---
Patient's blood pressure is 151/110, patient medicated with PRN. Patient is asymptomatic, denies s/s of distress, CP, GARDNER, blurred vision. Will continue care.
--- NOTE | 2018-10-04 15:02 | NUR ---
Paged Dr. Serrano regarding blood pressure 157/110 after administration of prn medication. HR 68. Patient is asymptomatic. Patient denies SOB, CP, or distress. Awaiting call back.
[2018-10-04] MEDS ORDERED: hydrALAZINE HCL 20 MG/ML VL IV PRN (15:30)
--- NOTE | 2018-10-04 16:20 | NUR ---
MD aware of serosanguineous draining wound on left calf. Per MD, patient is discharged home on antibiotics. Patient claims he "popped his blister."
--- NOTE | 2018-10-04 16:20 | NUR ---
Patient's blood pressure is 149/109. Per MD, patient can be discharged home. MD aware patient had previous episode of chest pain today. EKG shown to MD, no new orders received. MD aware patient had CXR done today and results are pending. Per MD, continue with discharge and follow-up on results with primary doctor. Patient taken off O2, saturating 98% on RA.
[2018-10-04 18:02] VITALS: BP 156/115
--- NOTE | 2018-10-04 18:15 | NUR ---
Patient's blood pressure is 156/115. Patient is asymptomatic, denies s/s of distress, CP, GARDNER, blurred vision. Dr. Serrano contacted. MD ordered additional blood pressure medication. Per MD, administer medication and patient can be discharged home.
[2018-10-04] MEDS ORDERED: hydrALAZINE HCL 25 MG TAB PO SCH (18:30)
--- NOTE | 2018-10-04 19:04 | NUR ---
Change of shift given to night worker RN. No distress noted.
--- NOTE | 2018-10-04 19:19 | NUR ---
Dr. Serrano contacted regarding pending discharge order. Per MD, contact him for discharge instructions. Endorsed obtaining discharge instructions to retail shift supervisor RN. [facility] shift lead RN aware and verbalized understanding.
--- NOTE | 2018-10-04 19:30 | NUR ---
Awake alert and oriented. Complaining of SOB as soon as I entered his room. Wanted assistance to the bathroom as well. While using the restroom I replaced oxygen tubing for extra long tubing so he could wear it if need be while transferring to bathroom. Large BM. Patient unable to wipe himself. Assisted with daisy care. Calls often for assistance. Will call Dr. Serrano if no orders for d/c appear. Per Naomi WRIGHT he is supposed to discharge patient tonight. Call light within reach, bed low.
--- NOTE | 2018-10-04 20:15 | NUR ---
Spoke with Dr. Serrano. Carried out orders for discharge. Butler removed. IV to right AC removed, catheter intact. Tele box cleaned and returned to BRIANA. Patient given prescriptions and discharge instructions. Assisted with getting dressed. Vitals stable. No SOB/distress noted. Will take patient out to car via wheelchair.
[2018-10-04 20:48] VITALS: BP 156/98
== END 2018-10-04 22:00 | disposition home or self-care (01) | DRG 190 ==
LOC: ER 02:01 → TELE 08:22 → TELE-WESTW 10:47
PROVIDERS: ADMIT Internal Medicine; ATTEND Internal Medicine
DX: I21.A1 Myocardial infarction type 2 (principal); I50.43 Acute on chronic combined systolic (congestive) and diastolic (congestive) heart failure; J18.9 Pneumonia, unspecified organism; E87.1 Hypo-osmolality and hyponatremia; I11.0 Hypertensive heart disease with heart failure; F15.20 Other stimulant dependence, uncomplicated; L03.116 Cellulitis of left lower limb; I73.9 Peripheral vascular disease, unspecified; D63.8 Anemia in other chronic diseases classified elsewhere; M21.942 Unspecified acquired deformity of hand, left hand; M21.941 Unspecified acquired deformity of hand, right hand; E78.5 Hyperlipidemia, unspecified; F17.210 Nicotine dependence, cigarettes, uncomplicated; Z91.14 Patient's other noncompliance with medication regimen; Z91.19 Patient's noncompliance with other medical treatment and regimen; Z90.49 Acquired absence of other specified parts of digestive tract; Z88.5 Allergy status to narcotic agent; Z80.42 Family history of malignant neoplasm of prostate; Z82.0 Family history of epilepsy and other diseases of the nervous system; Z82.49 Family history of ischemic heart disease and other diseases of the circulatory system; Z83.3 Family history of diabetes mellitus
CPT/HCPCS: 36415; 51702; 71045; 80048; 80053; 80061; 80307; 81001; 82550; 83615; 83735; 83880; 84484; 85025; 85610; 85730; 87040; 87804; 93005; 94640; 96372; 96374; 96375; G0378; J0696; J3490

== ENCOUNTER 2018-10-15 07:32 | Inpatient (IN) | payer MEDICAID ==
[~2018-10-15] VITALS: Ht 165.1 cm; Wt 73.0 kg
[~2018-10-15 07:32] MED LIST: ASPI81TA27 PO; FURO40TA4 PO; HYDR10TA26 PO; LISI10TA6 PO; METO25TA5 PO
[2018-10-15] MEDS ORDERED: cloNIDine HCL 0.1 MG TAB PO ONE (07:45)
[2018-10-15 08:35] LABS: Basophils # (auto) 0.1 uL; Basophils % (auto) 1.3 % (0.0-2.0); Eosinophils # (auto) 0.1 uL; Hematocrit 37.9 % (41.0-53.0); Hemoglobin 11.7 g/dL (13.5-17.5); Lymphocytes # (auto) 1.5 uL; Lymphocytes % (auto) 19.8 % (10.0-50.0); Mean Corpuscular Hemoglobin 20.3 pg (28.0-32.0); Mean Corpuscular Hgb Conc. 30.8 g/dL (32.0-36.0); Mean Corpuscular Volume 65.9 fL (80.0-100.0); Monocytes # (auto) 0.6 uL; Neutrophils # (auto) 5.3 uL; Neutrophils % (auto) 69.9 % (37.0-80.0); Nucleated Red Blood Cells % 0.1 %; Platelet Count (auto) 291 10^3/uL (140-450); Red Blood Cells 5.75 10^6/uL (4.5-5.90); White Blood Cell 7.6 10^3/uL (4.4-10.8)
[2018-10-15 08:54] LABS: Albumin 3.4 g/dL (3.4-5.0); BUN/Creatinine Ratio 27.2; Calcium 8.6 mg/dL (8.5-10.1); Potassium 3.5 mmol/L (3.5-5.1)
[2018-10-15 09:02] LABS: Bilirubin, Total 2.3 mg/dL (0.2-1.0); Total Protein 7.7 g/dL (6.4-8.2)
[2018-10-15] MEDS ORDERED: FUROSEMIDE 40 MG/4 ML VIAL IV ONE (10:15)
[2018-10-15] MEDS ORDERED: ENOXAPARIN SOD 80 MG/0.8ML SYRINGE SC ONE (10:15)
[2018-10-15] MEDS ORDERED: MORPHINE SULF INJ 2 MG/ML SYRINGE 1ML IV ONE (15:00)
[2018-10-15] MEDS ORDERED: LISINOPRIL 20 MG TAB PO ONE (15:00)
[2018-10-15] MEDS ORDERED: METOPROLOL TARTRATE 1MG/1ML-5ML VIAL IV ONE (15:00)
[2018-10-15] MEDS ORDERED: NITROGLYCERIN 0.4 MG SL TAB SL PRN (15:00)
[2018-10-15] MEDS ORDERED: MORPHINE SULF INJ 2 MG/ML SYRINGE 1ML IV PRN ×2 (15:00→16:00)
[2018-10-15] MEDS ORDERED: NITROGLYCERIN 0.4MG/HR TOPICAL PATCH TD ONE (15:00)
[2018-10-15] MEDS: NICARDIPINE 25MG/250ML BAG KIT 250 ML IV SCH ×2 (17:00→22:15)
[2018-10-15] MEDS: FUROSEMIDE 40 MG/4 ML VIAL IV SCH (19:00)
[2018-10-15] MEDS ORDERED: PATIENTS OWN MEDICATION (Lisinopril 10 MG) PO SCH (22:00)
[2018-10-15] MEDS: LISINOPRIL 10 MG TAB PO SCH (22:01)
[2018-10-15] MEDS: METOPROLOL TARTRATE 25 MG TAB PO SCH (22:01)
[2018-10-16] MEDS: NICARDIPINE 25MG/250ML BAG KIT 250 ML IV SCH ×2 (03:15→08:15)
[2018-10-16] MEDS: FUROSEMIDE 40 MG/4 ML VIAL IV SCH ×2 (05:06→17:35)
[2018-10-16 05:19] LABS: Mean Corpuscular Hemoglobin 20.6 pg (28.0-32.0); Mean Corpuscular Hgb Conc. 31.5 g/dL (32.0-36.0)
[2018-10-16 05:21] LABS: Basophils # (auto) 0.3 uL; Basophils % (auto) 3.5 % (0.0-2.0); Eosinophils # (auto) 0.2 uL; Eosinophils % (auto) 2.1 % (0.0-7.0); Hematocrit 30.9 % (41.0-53.0); Hemoglobin 9.7 g/dL (13.5-17.5); Lymphocytes # (auto) 1.7 uL; Lymphocytes % (auto) 21.4 % (10.0-50.0); Mean Corpuscular Volume 65.5 fL (80.0-100.0); Monocytes # (auto) 0.8 uL; Monocytes % (auto) 10.6 % (0.0-12.0); Neutrophils # (auto) 4.9 uL; Neutrophils % (auto) 62.4 % (37.0-80.0); Nucleated Red Blood Cells % 0.1 %; Platelet Count (auto) 258 10^3/uL (140-450); Red Blood Cells 4.72 10^6/uL (4.5-5.90); White Blood Cell 7.9 10^3/uL (4.4-10.8)
[2018-10-16 05:41] LABS: Calcium 7.7 mg/dL (8.5-10.1)
[2018-10-16] MEDS: hydrALAZINE HCL 20 MG/ML VL IV PRN (05:49)
[2018-10-16 05:51] LABS: Potassium 2.9 mmol/L (3.5-5.1)
[2018-10-16] MEDS ORDERED: POTASSIUM CHL 20 Meq TABLET PO ONE (06:00)
[2018-10-16] MEDS: ASPirin-EC 81 mg tab PO SCH (09:33)
[2018-10-16] MEDS: LISINOPRIL 10 MG TAB PO SCH ×2 (09:34→22:02)
[2018-10-16] MEDS: METOPROLOL TARTRATE 25 MG TAB PO SCH ×2 (09:34→22:03)
--- NOTE | 2018-10-16 13:21 | NUR ---
Telemetry admit from ER JOHANNASTEFANIE admitted to Telemetry unit after SBAR received. Patient oriented to GER NAVARRETE RN primary RN, unit, room 222B, bed, and unit policies regarding patient care and visiting hours. Patient now on continuous telemetry monitoring, tele box # 47 and telemetry reading on arrival to unit is sinu rhythm 64. Patient placed on bedside oxygen, weighed by bedscale and encouraged to call if they need something. All questions and concerns addressed, patient verbalized understanding. Bed in low and locked position, rails up x2, no-slip socks on.
--- NOTE | 2018-10-16 13:30 | NUR ---
DR HELMS AT BEDSIDE EDUCATED PATIENT ON NEED TO STOP SMOKING AND ABUSING METH. INFORMED OF ALL THE RISKS ASSOCIATED WITH DRUG ABUSE AND TOBACCO, PATIENT VERBALIZES UNDERSTANDING.
[2018-10-16 17:00] VITALS: BP 146/99
[2018-10-16 20:00] VITALS: BP 146/99
[2018-10-16 22:00] VITALS: BP 145/88
[2018-10-17 05:00] VITALS: BP 138/100
[2018-10-17] MEDS: ENALAPRILAT 1.25 MG/ML-1ML VIAL IV PRN ×3 (05:35→18:36)
[2018-10-17] MEDS: FUROSEMIDE 40 MG/4 ML VIAL IV SCH ×2 (06:46→18:37)
[2018-10-17 07:01] LABS: Eosinophils # (auto) 0.3 uL; Hemoglobin 9.9 g/dL (13.5-17.5); Mean Corpuscular Hemoglobin 20.6 pg (28.0-32.0); Mean Corpuscular Volume 65.5 fL (80.0-100.0); Neutrophils # (auto) 3.8 uL; White Blood Cell 6.8 10^3/uL (4.4-10.8)
[2018-10-17 07:03] LABS: Basophils # (auto) 0.1 uL; Basophils % (auto) 1.8 % (0.0-2.0); Eosinophils % (auto) 4.2 % (0.0-7.0); Hematocrit 31.4 % (41.0-53.0); Lymphocytes # (auto) 1.6 uL; Mean Corpuscular Hgb Conc. 31.4 g/dL (32.0-36.0); Monocytes % (auto) 14.3 % (0.0-12.0); Neutrophils % (auto) 55.7 % (37.0-80.0); Nucleated Red Blood Cells % 0.2 %; Platelet Count (auto) 256 10^3/uL (140-450)
[2018-10-17 07:04] LABS: Red Cell Distribution Width 24.8 % (11.8-14.3)
--- NOTE | 2018-10-17 07:15 | NUR ---
Opening Shift Note Assumed care of patient, awake and alert. No S/S of distress/SOB or pain. Instructed on POC and to call for assist PRN, will continue to monitor for changes Q1hr and PRN. Bed in low and locked position, rails up x2, no-slip socks on.
[2018-10-17 07:18] LABS: Calcium 7.7 mg/dL (8.5-10.1); Potassium 3.2 mmol/L (3.5-5.1)
[2018-10-17 08:58] VITALS: BP 163/122
[2018-10-17] MEDS: METOPROLOL TARTRATE 25 MG TAB PO SCH ×2 (10:29→22:17)
[2018-10-17] MEDS: LISINOPRIL 10 MG TAB PO SCH ×2 (10:29→22:17)
[2018-10-17] MEDS: ASPirin-EC 81 mg tab PO SCH (10:29)
[2018-10-17 13:18] VITALS: BP 160/95
--- NOTE | 2018-10-17 15:42 | NUR ---
DR MEDELLIN AT BEDSIDE
[2018-10-17] MEDS ORDERED: POTASSIUM CHL 20 Meq TABLET PO ONE (15:45)
[2018-10-17 17:32] VITALS: BP 155/107
--- NOTE | 2018-10-17 19:00 | NUR ---
OPENING NOTE Received report from day shift RN. Patient is A&O X's 4 with no s/s of distress. Educated patient on POC/ to use call light when in need of assistance. Patient verbalized understanding. Bed is in lowest/locked position with side rails up X's 2 and call light within reach. Will continue to monitor and round hourly/PRN.
[2018-10-17] MEDS: MORPHINE SULF INJ 2 MG/ML SYRINGE 1ML IV PRN (21:06)
[2018-10-17 22:00] VITALS: BP 175/108
--- NOTE | 2018-10-17 22:22 | NUR ---
VITAL SIGNS REASSESSED BP 148/88 HR 73 O2 94 on room air.
[2018-10-18] MEDS: ENALAPRILAT 1.25 MG/ML-1ML VIAL IV PRN ×2 (00:02→09:29)
[2018-10-18] MEDS: MORPHINE SULF INJ 2 MG/ML SYRINGE 1ML IV PRN ×2 (03:19→20:58)
[2018-10-18 05:00] VITALS: BP 169/113
[2018-10-18] MEDS: hydrALAZINE HCL 20 MG/ML VL IV PRN (05:13)
[2018-10-18] MEDS: FUROSEMIDE 40 MG/4 ML VIAL IV SCH ×3 (06:33→22:22)
[2018-10-18 07:09] LABS: BUN/Creatinine Ratio 27.8; Calcium 8.3 mg/dL (8.5-10.1); Potassium 3.4 mmol/L (3.5-5.1)
[2018-10-18 09:00] VITALS: BP 168/98
[2018-10-18] MEDS: LISINOPRIL 10 MG TAB PO SCH ×2 (09:29→22:22)
[2018-10-18] MEDS: ASPirin-EC 81 mg tab PO SCH (09:29)
[2018-10-18] MEDS: METOPROLOL TARTRATE 25 MG TAB PO SCH ×2 (09:29→22:23)
--- NOTE | 2018-10-18 11:45 | NUR ---
DR MEDELLIN AT BEDSIDE
[2018-10-18] MEDS: DOXYCYCLINE 100MG/250ML 250 ML IV SCH ×2 (12:11→23:40)
[2018-10-18] MEDS ORDERED: POTASSIUM CHL 20 Meq TABLET PO ONE (12:15)
[2018-10-18 13:28] VITALS: BP 157/92
--- NOTE | 2018-10-18 14:50 | NUR ---
HOME MEDICATIONS CONFIRMED CALLED PATIENTS PREFERRED PHARMACY, VERIFIED HOME MEDICATIONS.
[2018-10-18 17:00] VITALS: BP 147/96
--- NOTE | 2018-10-18 19:20 | NUR ---
OPENING NOTE Received report from day shift RN. Patient is resting in bed. No s/s of discomfort/ distress noted. Bed is in lowest/locked position with side rails up X's 2 and call light is within reach of patient. Will continue to monitor for changes and round hourly/PRN.
[2018-10-18 21:35] VITALS: BP 139/103
[2018-10-19] MEDS: ENALAPRILAT 1.25 MG/ML-1ML VIAL IV PRN (04:18)
[2018-10-19] MEDS: FUROSEMIDE 40 MG/4 ML VIAL IV SCH ×2 (05:31→13:50)
[2018-10-19 05:35] VITALS: BP 163/110
[2018-10-19 07:28] LABS: Calcium 8.5 mg/dL (8.5-10.1); Potassium 3.2 mmol/L (3.5-5.1)
--- NOTE | 2018-10-19 08:00 | NUR ---
Opening Shift Note Assumed care of patient, awake and alert. No S/S of distress/SOB or pain. Instructed on POC and to call for assist PRN, will continue to monitor for changes Q1hr and PRN.
[2018-10-19 09:00] VITALS: BP 164/122
[2018-10-19] MEDS ORDERED: hydrALAZINE HCL 25 MG TAB PO PRN (10:00)
[2018-10-19] MEDS ORDERED: POTASSIUM CHL 20 Meq TABLET PO ONE (10:00)
[2018-10-19] MEDS: ASPirin-EC 81 mg tab PO SCH (10:16)
[2018-10-19] MEDS: LISINOPRIL 10 MG TAB PO SCH (10:16)
[2018-10-19] MEDS: METOPROLOL TARTRATE 25 MG TAB PO SCH (10:16)
[2018-10-19 13:00] VITALS: BP 128/89
[2018-10-19 14:37] VITALS: BP 128/89
--- NOTE | 2018-10-19 14:57 | NUR ---
I faxed follow up CHF clinic appointment order to [facility].
--- NOTE | 2018-10-19 16:45 | NUR ---
Discharge instructions given as ordered. Encourage to follow up with PMD Dr. Adryan Rodriguez on 10/22/18 at 1300 # [phone] located at [address] [place] [address] as instructed. Patient instructed to obtain referral from PMD for a waste removalist, patient needs to see a waste removalist. All questions and concerns addressed. Patient verbalized understanding. Medication reconciliation form completed and copy given to patient. IV removed with catheter intact, pressure dressing applied. Telemetry unit returned to BRIANA. Patient taken to vehicle via wheelchair with all personal belongings, accompanied by staff. No distress noted at time of departure.
== END 2018-10-19 16:45 | disposition home or self-care (01) | DRG 194 ==
LOC: ER 07:32 → TELE 15:03 → TELE-CENTR 10-16 13:32
PROVIDERS: ADMIT Nurse Practitioner Acute Care; ATTEND Internal Medicine
DX: I11.0 Hypertensive heart disease with heart failure (principal); L03.115 Cellulitis of right lower limb; I42.7 Cardiomyopathy due to drug and external agent; I50.43 Acute on chronic combined systolic (congestive) and diastolic (congestive) heart failure; I16.9 Hypertensive crisis, unspecified; F15.10 Other stimulant abuse, uncomplicated; D63.8 Anemia in other chronic diseases classified elsewhere; F17.210 Nicotine dependence, cigarettes, uncomplicated; T43.625A Adverse effect of amphetamines, initial encounter; E78.5 Hyperlipidemia, unspecified; Z80.42 Family history of malignant neoplasm of prostate; Z82.0 Family history of epilepsy and other diseases of the nervous system; Z79.82 Long term (current) use of aspirin; Z91.19 Patient's noncompliance with other medical treatment and regimen; Z82.49 Family history of ischemic heart disease and other diseases of the circulatory system; Z91.14 Patient's other noncompliance with medication regimen; Z83.3 Family history of diabetes mellitus; Z88.1 Allergy status to other antibiotic agents; Z88.5 Allergy status to narcotic agent; Z91.138 Patient's unintentional underdosing of medication regimen for other reason; Y92.89 Other specified places as the place of occurrence of the external cause; Y92.9 Unspecified place or not applicable
CPT/HCPCS: 36415; 71045; 71046; 80048; 80053; 83735; 83880; 84484; 85025; 87081; 93005; 96374; 96375; G0378; J3490

== ENCOUNTER 2018-11-22 05:23 | Inpatient (IN) | payer MEDICAID ==
[~2018-11-22] VITALS: Ht 165.1 cm; Wt 79.2 kg
[2018-11-22] MEDS ORDERED: ALBUTEROL SULF 2.5 MG/0.5ML(0.5%) NEB SOLN ONE (05:40)
[2018-11-22] MEDS ORDERED: ALBUTEROL SULF 2.5 MG/0.5ML(0.5%) NEB SOLN HHN STA (05:40)
[2018-11-22] MEDS ORDERED: IPRATROPIUM BROM 0.5 MG/2.5ML INH SOL ONE (05:41)
[2018-11-22] MEDS ORDERED: IPRATROPIUM BROM 0.5 MG/2.5ML INH SOL NEB ONE (05:45)
[2018-11-22] MEDS ORDERED: cloNIDine HCL 0.1 MG TAB PO ONE (06:00)
[2018-11-22 06:29] LABS: Basophils # (auto) 0 uL; Eosinophils # (auto) 0 uL; Hemoglobin 10.8 g/dL (13.5-17.5); Monocytes # (auto) 0.7 uL; Neutrophils # (auto) 6.1 uL; Nucleated Red Blood Cells % 0.1 %
[2018-11-22 06:32] LABS: Basophils % (auto) 0.4 % (0.0-2.0); Eosinophils % (auto) 0.4 % (0.0-7.0); Hematocrit 33.4 % (41.0-53.0); Lymphocytes # (auto) 1.4 uL; Lymphocytes % (auto) 16.8 % (10.0-50.0); Mean Corpuscular Hemoglobin 21.3 pg (28.0-32.0); Mean Corpuscular Hgb Conc. 32.2 g/dL (32.0-36.0); Mean Corpuscular Volume 66.2 fL (80.0-100.0); Monocytes % (auto) 8.5 % (0.0-12.0); Neutrophils % (auto) 73.9 % (37.0-80.0); Platelet Count (auto) 203 10^3/uL (140-450); Red Blood Cells 5.05 10^6/uL (4.5-5.90); White Blood Cell 8.3 10^3/uL (4.4-10.8)
[2018-11-22 06:39] LABS: Red Cell Distribution Width 22.9 % (11.8-14.3)
[2018-11-22 06:47] LABS: Albumin 3.4 g/dL (3.4-5.0); Calcium 8.2 mg/dL (8.5-10.1); Potassium 3.8 mmol/L (3.5-5.1)
[2018-11-22 06:52] LABS: BUN/Creatinine Ratio 31.9; Bilirubin, Total 2.3 mg/dL (0.2-1.0)
[2018-11-22] MEDS ORDERED: hydrALAZINE HCL 20 MG/ML VL IV ONE (07:00)
[2018-11-22] MEDS ORDERED: LABETALOL HCL 5 MG/ML ML 20ML VIAL IV ONE (07:00)
[2018-11-22] MEDS ORDERED: SODIUM CHLORIDE 0.9% 1,000 ML IV ONE (07:15)
[2018-11-22 08:01] LABS: Urine Bacteria NONE SEEN /hpf (None Seen); Urine Blood TRACE /uL (Negative); Urine Specific Gravity 1.013 (1.001-1.035); Urine Sperm PRESENT /hpf (None Seen); Urine WBC 1 /hpf (0 - 3)
[2018-11-22] MEDS ORDERED: IOHEXOL 350 MG/ML 100ML IJ ONE (09:09)
[2018-11-22] MEDS ORDERED: LORazepam 0.5 MG TAB PO PRN (09:15)
[2018-11-22] MEDS ORDERED: LACTULOSE 20Gm/30ML SOLN PO PRN (09:15)
[2018-11-22] MEDS ORDERED: traMADol HCL 50 MG TAB PO PRN (09:15)
[2018-11-22] MEDS ORDERED: FUROSEMIDE 40 MG/4 ML VIAL IV ONE (09:15)
[2018-11-22] MEDS ORDERED: PROMETHAZINE HCL 25 MG/ML 1ML IV PRN (09:15)
[2018-11-22] MEDS ORDERED: MORPHINE SULF INJ 2 MG/ML SYRINGE 1ML IV PRN (09:15)
[2018-11-22] MEDS ORDERED: TEMAZEPAM 15 MG CAP PO PRN (09:15)
[2018-11-22] MEDS ORDERED: SPIRONOLACTONE 25 MG TAB PO ONE (09:15)
[2018-11-22] MEDS ORDERED: NITROGLYCERIN 0.4 MG SL TAB SL PRN (09:15)
[2018-11-22] MEDS: NITROGLYCERIN 0.2MG/HR TOPICAL PATCH TD SCH (10:00)
[2018-11-22] MEDS: ENALAPRIL MALEATE 10 MG TAB PO SCH (10:25)
[2018-11-22] MEDS: PANTOPRAZOLE 40 MG TAB PO SCH (10:26)
[2018-11-22] MEDS: ASPirin 81 mg TAB PO SCH (10:26)
[2018-11-22] MEDS: POTASSIUM CHL 20 Meq TABLET PO SCH (10:26)
[2018-11-22] MEDS: CARVEDILOL 3.125 MG TAB PO SCH ×2 (10:26→22:30)
[2018-11-22 10:40] LABS: Alcohol, Urine < 3.0 mg/dL (0-5)
[2018-11-22 10:41] LABS: Amphetamine Screen, Urine POSITIVE (NEGATIVE); Barbiturate Scree,Urine NEGATIVE (NEGATIVE); Benzodiazephine Screen, Urine NEGATIVE (NEGATIVE); Cannabinoid Screen, Urine NEGATIVE (NEGATIVE); Cocaine Screen, Urine NEGATIVE (NEGATIVE); Opiate Scree,Urine NEGATIVE (NEGATIVE); Phencyclidine Screen, Urine NEGATIVE (NEGATIVE)
[2018-11-22 12:55] VITALS: BP 124/78
--- NOTE | 2018-11-22 13:00 | NUR ---
Telemetry admit from ER STEFANIE SPENCER admitted to Telemetry unit after SBAR received. Patient oriented to room, bed, and instructed information security manager light. Patient now on continuous telemetry monitoring. Patient on room air, weighed by bedscale, and encouraged to call if they need anything. All questions and concerns addressed, patient verbalized understanding. Water provided. Skin is intact, but BLE are edematous (+2 pitting edema) with dry darkened skin. Patient alert and oriented, difficult to understand at times due to unclear speech/garbled.
--- NOTE | 2018-11-22 13:00 | NUR ---
Home meds Patient is unaware of what medications he takes at home. He does not have a medication list with him.
[2018-11-22] MEDS ORDERED: LEVOFLOXACIN 500MG 100 ML IV ONE (13:45)
[2018-11-22] MEDS: SODIUM CHLOR 0.9% PF (SALINE LOCK) 10ML VIAL/SYR IV SCH ×2 (14:00→22:00)
[2018-11-22] MEDS: CLINDAMYCIN 600MG IV 50 ML IV SCH ×2 (14:00→22:29)
[2018-11-22 16:28] VITALS: BP 144/99
[2018-11-22] MEDS: FUROSEMIDE 40 MG/4 ML VIAL IV SCH (17:40)
--- NOTE | 2018-11-22 19:15 | NUR ---
OPENING SHIFT NOTE ASSUMED CARE OF PATIENT FROM DAY SHIFT ADRIANA MCNULTY. PATIENT IS A/O X4 WITH EVEN AND UNLABORED RESPIRATIONS. NO S/S OF DISTRESS OR PAIN AT THIS TIME. PATIENT EDUCATED TO CALL IF STARTS TO FEEL SOB. BED IN LOWEST POSITION, LOCKED, AND CALL LIGHT IS IN REACH. PATIENT INSTRUCTED ON POC AND TO CALL FOR ASSIST PRN. WILL CONTINUE TO MONITOR.
[2018-11-22 22:00] VITALS: BP 140/92
--- NOTE | 2018-11-23 00:50 | NUR ---
ST ELEVATION/BRIANA CALLED PATIENT A/OX4. HE DENIES ANY CHEST PAIN, DIZZINESS, OR WEAKNESS. BP IS 142/90 AND HR IS 74. EKG TAKEN SHOWING NSR, RIGHTWARD AXIS, NONSPECIFIC T WAVE AB. AND PROLONGED QT. EKG TAKEN TO Renata HANLEY TO READ. ORDERS TO CONTINUE TO MONITOR AT THIS TIME. EKG SIGNED AND PLACED IN CHART.
[2018-11-23 05:22] LABS: Basophils # (auto) 0.2 uL; Eosinophils # (auto) 0.4 uL; Lymphocytes # (auto) 1.8 uL; Neutrophils % (auto) 56.1 % (37.0-80.0)
[2018-11-23 05:26] LABS: Basophils % (auto) 2.2 % (0.0-2.0); Eosinophils % (auto) 5.3 % (0.0-7.0); Hematocrit 31.4 % (41.0-53.0); Hemoglobin 10.1 g/dL (13.5-17.5); Lymphocytes % (auto) 23.8 % (10.0-50.0); Mean Corpuscular Hgb Conc. 32.1 g/dL (32.0-36.0); Mean Corpuscular Volume 65.5 fL (80.0-100.0); Monocytes % (auto) 12.6 % (0.0-12.0); Neutrophils # (auto) 4.2 uL; Nucleated Red Blood Cells % 0.1 %; Platelet Count (auto) 194 10^3/uL (140-450); Red Blood Cells 4.79 10^6/uL (4.5-5.90); White Blood Cell 7.6 10^3/uL (4.4-10.8)
[2018-11-23 05:35] LABS: Red Cell Distribution Width 22.9 % (11.8-14.3)
[2018-11-23 05:42] LABS: Albumin 2.8 g/dL (3.4-5.0); Potassium 3.5 mmol/L (3.5-5.1)
[2018-11-23 05:51] LABS: BUN/Creatinine Ratio 32.7; Calcium 7.9 mg/dL (8.5-10.1)
[2018-11-23] MEDS: CLINDAMYCIN 600MG IV 50 ML IV SCH ×3 (06:03→22:09)
[2018-11-23] MEDS: SODIUM CHLOR 0.9% PF (SALINE LOCK) 10ML VIAL/SYR IV SCH ×3 (06:04→22:10)
[2018-11-23] MEDS: FUROSEMIDE 40 MG/4 ML VIAL IV SCH ×2 (06:04→17:38)
[2018-11-23 06:22] VITALS: BP 149/81
[2018-11-23 08:00] VITALS: BP 149/81
[2018-11-23 08:38] VITALS: BP 153/103
[2018-11-23] MEDS: NITROGLYCERIN 0.2MG/HR TOPICAL PATCH TD SCH (09:25)
[2018-11-23] MEDS: CARVEDILOL 3.125 MG TAB PO SCH ×2 (09:27→22:10)
[2018-11-23] MEDS: PANTOPRAZOLE 40 MG TAB PO SCH (09:28)
[2018-11-23] MEDS: POTASSIUM CHL 20 Meq TABLET PO SCH (09:29)
[2018-11-23] MEDS: ASPirin 81 mg TAB PO SCH (09:32)
[2018-11-23] MEDS: ENALAPRIL MALEATE 10 MG TAB PO SCH (09:32)
[2018-11-23] MEDS: LEVOFLOXACIN 500MG 100 ML IV SCH (09:33)
[2018-11-23 12:33] VITALS: BP 125/81
[2018-11-23 17:16] VITALS: BP 149/91
--- NOTE | 2018-11-23 19:10 | NUR ---
OPENING SHIFT NOTE ASSUMED CARE OF PATIENT FROM DAY SHIFT RN HEIDY.. PATIENT IS ASLEEP WITH EVEN AND UNLABORED RESPIRATIONS. HE IS EASILY AROUSED BY NAME. HE DENIES ANY SOB OR PAIN AT THIS TIME. BED IN LOWEST POSITION, LOCKED, AND CALL LIGHT IS IN REACH. PATIENT INSTRUCTED ON POC AND TO CALL FOR ASSIST PRN. WILL CONTINUE TO MONITOR
[2018-11-23 21:30] VITALS: BP 166/114
[2018-11-24] VITALS (7 sets, daily range): BP systolic 144–166; BP diastolic 76–124
[2018-11-24] MEDS: CLINDAMYCIN 600MG IV 50 ML IV SCH ×3 (05:22→21:59)
[2018-11-24] MEDS: FUROSEMIDE 40 MG/4 ML VIAL IV SCH ×2 (05:22→18:00)
[2018-11-24 05:51] LABS: Basophils # (auto) 0.1 uL; Eosinophils # (auto) 0.4 uL; Hemoglobin 9.8 g/dL (13.5-17.5); Mean Corpuscular Volume 66.4 fL (80.0-100.0); Nucleated Red Blood Cells % 0.1 %
[2018-11-24 05:57] LABS: Basophils % (auto) 1.4 % (0.0-2.0); Eosinophils % (auto) 5.8 % (0.0-7.0); Hematocrit 30.8 % (41.0-53.0); Lymphocytes # (auto) 1.9 uL; Lymphocytes % (auto) 26.8 % (10.0-50.0); Mean Corpuscular Hemoglobin 21.1 pg (28.0-32.0); Mean Corpuscular Hgb Conc. 31.8 g/dL (32.0-36.0); Monocytes % (auto) 14.5 % (0.0-12.0); Neutrophils # (auto) 3.7 uL; Neutrophils % (auto) 51.5 % (37.0-80.0); Platelet Count (auto) 132 10^3/uL (140-450); Red Blood Cells 4.63 10^6/uL (4.5-5.90); White Blood Cell 7.2 10^3/uL (4.4-10.8)
[2018-11-24] MEDS: SODIUM CHLOR 0.9% PF (SALINE LOCK) 10ML VIAL/SYR IV SCH ×3 (06:00→22:01)
[2018-11-24 06:18] LABS: Red Cell Distribution Width 22.9 % (11.8-14.3)
[2018-11-24 06:43] LABS: Calcium 7.8 mg/dL (8.5-10.1); Potassium 4.5 mmol/L (3.5-5.1)
[2018-11-24 06:46] LABS: BUN/Creatinine Ratio 26.7
[2018-11-24] MEDS: ASPirin 81 mg TAB PO SCH (09:44)
[2018-11-24] MEDS: LEVOFLOXACIN 500MG 100 ML IV SCH (09:44)
[2018-11-24] MEDS: CARVEDILOL 3.125 MG TAB PO SCH ×2 (09:47→21:59)
[2018-11-24] MEDS: PANTOPRAZOLE 40 MG TAB PO SCH (09:47)
[2018-11-24] MEDS: POTASSIUM CHL 20 Meq TABLET PO SCH (09:47)
[2018-11-24] MEDS: ENALAPRIL MALEATE 10 MG TAB PO SCH (09:48)
[2018-11-24] MEDS: NITROGLYCERIN 0.2MG/HR TOPICAL PATCH TD SCH (09:48)
--- NOTE | 2018-11-24 10:04 | NUR ---
assessment Patient is a 48 year old male who is alert and oriented. Patients cognitive abilities are intact. Prior to admission patient lived home with his father and functioned independently. Patient informed me he is able to care for his own ADLs. Per patient he will return home to his prior living arrangements post discharge and family will transport him home. Patient informed me he has no DME at home. Patient informed me he has no needs at home. I informed patient he has a right to speak to a social worker assistant regarding all care. I informed patient he has a right to participate in any and all discharge planning. Patient is aware of visiting hours on the hospital floor. I informed patient he has a right to privacy. Patient does not have a POA and advanced directive. I have offered patient information on POA and advanced directives. I informed the patient the advantages and benefits of having an Advanced Directive. Patient verbalized understanding and agreed to discharge plan. Per ss consult patient lives with elderly father, has deformity of hands and feet, positive for meth, uses alcohol and has trouble fixing meals. Patient informed me he can care for his own ADL's and does not need assistance. Patient informed me he smokes meth daily and does use alcohol. Patient has accepted resources for inpatient and outpatient substance abuse rehab facilities. Patient informed me he does not have trouble fixing his meals. Patient informed me he is not a good cook, but can cook. Patient may benefit from a home health safety eval on discharge. Addendum: 11/24/18 at 1013 by Josi ARANA Amended: Links added.
[2018-11-25 05:06] VITALS: BP 149/100
[2018-11-25] MEDS: FUROSEMIDE 40 MG/4 ML VIAL IV SCH (05:50)
[2018-11-25] MEDS: CLINDAMYCIN 600MG IV 50 ML IV SCH (05:50)
[2018-11-25] MEDS: SODIUM CHLOR 0.9% PF (SALINE LOCK) 10ML VIAL/SYR IV SCH (05:51)
[2018-11-25 06:13] LABS: BUN/Creatinine Ratio 26.4; Calcium 8.6 mg/dL (8.5-10.1); Potassium 3.9 mmol/L (3.5-5.1)
--- NOTE | 2018-11-25 07:45 | NUR ---
OPENING NOTE ASSUMED CARE OF PT. PT IS LAYING ON BED, HOB FLAT. ALERT AND AWAKE. ON ROOM AIR. NO SIGNS OF SOB/DISTRESS NOTED. PT ON TELE #22. SAFETY PRECAUTIONS IN PLACE INCLUDING, BED SET TO LOWEST POSITION/LOCKED. BEDSIDE RAILS UP X2. BED ALARM ON. CALL LIGHT WITHIN REACH. INSTRUCTED PT TO CALL FOR ASSISTANCE. DISCUSSED POC WITH PT. PT VERBALIZED UNDERSTANDING. WILL CONTINUE TO MONITOR Q 1HR AND PRN.
[2018-11-25 08:07] VITALS: BP 162/92
[2018-11-25] MEDS: LEVOFLOXACIN 500MG 100 ML IV SCH (09:26)
[2018-11-25] MEDS: ASPirin 81 mg TAB PO SCH (09:26)
[2018-11-25] MEDS: CARVEDILOL 3.125 MG TAB PO SCH (09:27)
[2018-11-25] MEDS: ENALAPRIL MALEATE 10 MG TAB PO SCH (09:27)
[2018-11-25] MEDS: POTASSIUM CHL 20 Meq TABLET PO SCH (09:27)
[2018-11-25] MEDS: PANTOPRAZOLE 40 MG TAB PO SCH (09:27)
[2018-11-25] MEDS: NITROGLYCERIN 0.2MG/HR TOPICAL PATCH TD SCH (09:29)
--- NOTE | 2018-11-25 10:29 | NUR ---
SPOKE TO DR. MEDELLIN AT NURSES STATION. PER DR. MEDELLIN PATIENT CAN BE DISCHARGED ONCE CLEARED BY REGULATORY AFFAIRS SPECIALIST.
[2018-11-25 12:41] VITALS: BP 147/97
--- NOTE | 2018-11-25 13:30 | NUR ---
PATIENT WAS CLEARED BY DR. HELMS STANDPOINT.
[2018-11-25 14:16] VITALS: BP 147/97
--- NOTE | 2018-11-25 14:45 | NUR ---
Discharge instructions and paperwork given as MD ordered. Encourage to follow up with Dr. [facility] on 12[facility]07/18 at 12:00, [id number] [address] [place]. MAHESH [place]. . All questions and concerns addressed. Patient verbalized understanding. IV removed with catheter intact, pressure dressing applied. Telemetry unit returned to ICU.
--- NOTE | 2018-11-25 15:06 | NUR ---
Patient taken to vehicle via wheelchair with all personal belongings, accompanied by staff and family member. No distress noted at time of departure.
== END 2018-11-25 15:06 | disposition home or self-care (01) | DRG 194 ==
LOC: ER 05:23 → TELE 09:16 → TELE-WESTW 11:44
PROVIDERS: ADMIT Internal Medicine; ATTEND Internal Medicine
DX: I11.0 Hypertensive heart disease with heart failure (principal); I27.20 Pulmonary hypertension, unspecified; J91.8 Pleural effusion in other conditions classified elsewhere; L03.115 Cellulitis of right lower limb; L03.116 Cellulitis of left lower limb; I42.7 Cardiomyopathy due to drug and external agent; R17 Unspecified jaundice; I73.9 Peripheral vascular disease, unspecified; I50.43 Acute on chronic combined systolic (congestive) and diastolic (congestive) heart failure; D63.8 Anemia in other chronic diseases classified elsewhere; E78.5 Hyperlipidemia, unspecified; I42.0 Dilated cardiomyopathy; T43.625A Adverse effect of amphetamines, initial encounter; F17.210 Nicotine dependence, cigarettes, uncomplicated; M21.962 Unspecified acquired deformity of left lower leg; F15.10 Other stimulant abuse, uncomplicated; M21.961 Unspecified acquired deformity of right lower leg; Z91.19 Patient's noncompliance with other medical treatment and regimen; Z88.1 Allergy status to other antibiotic agents; Z80.42 Family history of malignant neoplasm of prostate; Z88.5 Allergy status to narcotic agent; Y92.89 Other specified places as the place of occurrence of the external cause
CPT/HCPCS: 36415; 71045; 71275; 80048; 80053; 80061; 80307; 81001; 82550; 83735; 83880; 84443; 84484; 85025; 85379; 87081; 94640; 94761; 96365; 96375; G0378; J1956; J3490

== ENCOUNTER 2018-12-15 14:06 | Inpatient (IN) | payer MEDICAID | END 2018-12-18 16:34 | disposition home or self-care (01) | LOC: ER 14:06 → TELE 19:24 → TELE-WESTW 20:31 | DX: J90 Pleural effusion, not elsewhere classified (principal); I50.43 Acute on chronic combined systolic (congestive) and diastolic (congestive) heart failure; I42.7 Cardiomyopathy due to drug and external agent; I13.0 Hypertensive heart and chronic kidney disease with heart failure and stage 1 through stage 4 chronic kidney disease, or unspecified chronic kidney disease; I16.9 Hypertensive crisis, unspecified; N18.3 Chronic kidney disease, stage 3 (moderate); F15.10 Other stimulant abuse, uncomplicated; D63.8 Anemia in other chronic diseases classified elsewhere ==

== ENCOUNTER 2019-01-22 04:25 | Inpatient (IN) | payer MEDICAID ==
[~2019-01-22] VITALS: Ht 165.1 cm; Wt 78.4 kg
[2019-01-22] MEDS ORDERED: FUROSEMIDE 40 MG/4 ML VIAL IV ONE (05:00)
[2019-01-22 07:16] LABS: Basophils # (auto) 0.2 uL; Hematocrit 37.5 % (41.0-53.0); Lymphocytes # (auto) 1.5 uL; Monocytes # (auto) 0.8 uL; White Blood Cell 7.7 10^3/uL (4.4-10.8)
[2019-01-22 07:21] LABS: Basophils % (auto) 2.3 % (0.0-2.0); Eosinophils # (auto) 0.1 uL; Eosinophils % (auto) 1.4 % (0.0-7.0); Hemoglobin 11.8 g/dL (13.5-17.5); Lymphocytes % (auto) 19.8 % (10.0-50.0); Mean Corpuscular Hemoglobin 20.8 pg (28.0-32.0); Mean Corpuscular Hgb Conc. 31.5 g/dL (32.0-36.0); Mean Corpuscular Volume 66.2 fL (80.0-100.0); Monocytes % (auto) 9.7 % (0.0-12.0); Neutrophils # (auto) 5.2 uL; Neutrophils % (auto) 66.8 % (37.0-80.0); Nucleated Red Blood Cells % 0.1 %; Platelet Count (auto) 209 10^3/uL (140-450); Red Blood Cells 5.67 10^6/uL (4.5-5.90)
[2019-01-22 07:27] LABS: Albumin 3.4 g/dL (3.4-5.0); BUN/Creatinine Ratio 24.5; Calcium 8.6 mg/dL (8.5-10.1); Magnesium 2.1 mg/dL (1.6-2.6); Potassium 3.4 mmol/L (3.5-5.1)
[2019-01-22 07:28] LABS: Red Cell Distribution Width 26.4 % (11.8-14.3)
[2019-01-22 07:32] LABS: Bilirubin, Total 1.5 mg/dL (0.2-1.0); Total Protein 7.6 g/dL (6.4-8.2)
[2019-01-22] MEDS ORDERED: cefTRIAXone 1GM/50ML D5W 50 ML IV ONE (08:00)
[2019-01-22] MEDS ORDERED: AZITHROMYCIN 500MG/ 250ML 250 ML IV ONE (08:00)
[2019-01-22 08:11] LABS: Urine WBC None Seen /hpf (0 - 3)
[2019-01-22] MEDS ORDERED: ALBUTEROL SULF 2.5 MG/0.5ML(0.5%) NEB SOLN NEB PRN (08:15)
[2019-01-22] MEDS ORDERED: MORPHINE SULFATE 4 MG/ML SYR/VIAL IV PRN (08:15)
[2019-01-22] MEDS ORDERED: MORPHINE SULF INJ 2 MG/ML SYRINGE 1ML IV PRN (08:15)
[2019-01-22] MEDS ORDERED: PROMETHAZINE HCL 25 MG/ML 1ML IV PRN (08:15)
[2019-01-22] MEDS ORDERED: cloNIDine HCL 0.1 MG TAB PO ONE (08:15)
[2019-01-22] MEDS ORDERED: TEMAZEPAM 15 MG CAP PO PRN (08:15)
[2019-01-22] MEDS ORDERED: LACTULOSE 20Gm/30ML SOLN PO PRN (08:15)
[2019-01-22] MEDS ORDERED: NITROGLYCERIN 0.4 MG SL TAB SL PRN (08:15)
[2019-01-22 08:58] LABS: Alcohol, Urine < 3.0 mg/dL (0-5); Amphetamine Screen, Urine POSITIVE (NEGATIVE); Barbiturate Scree,Urine NEGATIVE (NEGATIVE); Benzodiazephine Screen, Urine NEGATIVE (NEGATIVE); Cannabinoid Screen, Urine NEGATIVE (NEGATIVE); Cocaine Screen, Urine NEGATIVE (NEGATIVE); Opiate Scree,Urine NEGATIVE (NEGATIVE); Phencyclidine Screen, Urine NEGATIVE (NEGATIVE)
[2019-01-22 09:08] LABS: Urine Bacteria NONE SEEN /hpf (None Seen); Urine Blood Negative /uL (Negative); Urine Specific Gravity 1.004 (1.001-1.035)
[2019-01-22 10:01] VITALS: BP 226/136
[2019-01-22] MEDS: POTASSIUM CHL 20 Meq TABLET PO SCH (10:09)
[2019-01-22] MEDS: ASPirin 81 mg TAB PO SCH (10:09)
[2019-01-22] MEDS: ENALAPRIL MALEATE 2.5 MG TAB PO SCH (10:09)
[2019-01-22] MEDS: ENOXAPARIN SOD 40 MG/0.4 ML SYRINGE SC SCH (10:09)
[2019-01-22] MEDS: FUROSEMIDE 40 MG/4 ML VIAL IV SCH (10:10)
[2019-01-22] MEDS: NITROGLYCERIN 0.2MG/HR TOPICAL PATCH TD SCH (10:10)
[2019-01-22] MEDS: LEVOFLOXACIN 500MG 100 ML IV SCH (10:10)
[2019-01-22] MEDS: CARVEDILOL 3.125 MG TAB PO SCH ×2 (10:12→22:51)
--- NOTE | 2019-01-22 10:45 | NUR ---
Telemetry admit from ER JOHANNASTEFANIE admitted to Telemetry unit after SBAR received. Patient oriented to Dustin Watson RN primary RN, unit, room, bed, and unit policies regarding patient care and visiting hours. Patient now on continuous telemetry monitoring, tele box # 33 and telemetry reading on arrival to unit is sinus rhythm with BBB. Patient placed on bedside oxygen, weighed by bedscale and encouraged to call if they need something. All questions and concerns addressed, patient verbalized understanding. VS:98.2, 86, 18, 172/166, 98%, 0/10.
[2019-01-22 10:56] LABS: Lactic Acid w/Reflex 2.2 mmol/L (0.4-2.0)
--- NOTE | 2019-01-22 11:05 | NUR ---
ROBOTICS TECHNOLOGIST STATED PT RECEIVED LASIX 40MG IV, COREG 3.125, ENALAPRIL 2.5MG, AND NITRO PATCH PRIOR COMING UP TO ROOM 273A. WILL MONITOR B/P.
[2019-01-22] MEDS: IPRATROPIUM BROM 0.5 MG/2.5ML INH SOL NEB SCH ×2 (11:24→18:40)
[2019-01-22] MEDS: ALBUTEROL SULF 2.5 MG/0.5ML(0.5%) NEB SOLN NEB SCH ×2 (11:25→18:40)
--- NOTE | 2019-01-22 11:35 | NUR ---
B/P 146/99, HR 71. WILL CONTINUE TO MONITOR.
[2019-01-22] MEDS: SODIUM CHLOR 0.9% PF (SALINE LOCK) 10ML VIAL/SYR IV SCH ×2 (14:48→22:00)
[2019-01-22 17:06] VITALS: BP 146/98
--- NOTE | 2019-01-22 20:00 | NUR ---
Opening Shift Note Assumed care of patient, awake and alert. No S/S of distress/SOB or pain. Instructed on POC and to call for assist PRN, will continue to monitor for changes Q1hr and PRN.
[2019-01-22] MEDS: traMADol HCL 50 MG TAB PO PRN (20:20)
[2019-01-22 21:56] VITALS: BP 164/121
[2019-01-22] MEDS ORDERED: ATORVASTATIN 20 MG TAB PO SCH (22:00)
[2019-01-23] MEDS: traMADol HCL 50 MG TAB PO PRN (04:27)
[2019-01-23 04:39] VITALS: BP 148/105
[2019-01-23] MEDS: SODIUM CHLOR 0.9% PF (SALINE LOCK) 10ML VIAL/SYR IV SCH (06:00)
[2019-01-23 06:14] LABS: Albumin 2.6 g/dL (3.4-5.0); Calcium 7.8 mg/dL (8.5-10.1); Potassium 3.2 mmol/L (3.5-5.1)
[2019-01-23 06:17] LABS: BUN/Creatinine Ratio 29.5; Bilirubin, Total 1.2 mg/dL (0.2-1.0); Total Protein 6.1 g/dL (6.4-8.2)
[2019-01-23] MEDS: ALBUTEROL SULF 2.5 MG/0.5ML(0.5%) NEB SOLN NEB SCH ×3 (06:17→11:25)
[2019-01-23] MEDS: IPRATROPIUM BROM 0.5 MG/2.5ML INH SOL NEB SCH ×3 (06:17→11:25)
[2019-01-23 08:17] VITALS: BP 165/118
[2019-01-23] MEDS: ASPirin 81 mg TAB PO SCH (09:58)
[2019-01-23] MEDS: POTASSIUM CHL 20 Meq TABLET PO SCH (09:59)
[2019-01-23] MEDS: ENALAPRIL MALEATE 2.5 MG TAB PO SCH (09:59)
[2019-01-23] MEDS: NITROGLYCERIN 0.2MG/HR TOPICAL PATCH TD SCH (10:00)
[2019-01-23] MEDS: FUROSEMIDE 40 MG/4 ML VIAL IV SCH (10:03)
[2019-01-23] MEDS: LEVOFLOXACIN 500MG 100 ML IV SCH (10:03)
[2019-01-23] MEDS: ENOXAPARIN SOD 40 MG/0.4 ML SYRINGE SC SCH (10:04)
[2019-01-23] MEDS: CARVEDILOL 3.125 MG TAB PO SCH (10:04)
[2019-01-23] MEDS ORDERED: POTASSIUM EFFERVESENT TAB 25 MEQ PO SCH (11:15)
[2019-01-23] MEDS ORDERED: POTA25TA23 PO (11:22)
[2019-01-23] MEDS ORDERED: LEVO500T21 PO (11:22)
[2019-01-23] MEDS ORDERED: ALBUAER3 IN (11:22)
[2019-01-23] MEDS ORDERED: FURO40TA PO (11:22)
[2019-01-23] MEDS ORDERED: ENA2.5T PO (11:22)
[2019-01-23] MEDS ORDERED: CAR3125T PO (11:22)
--- NOTE | 2019-01-23 11:26 | NUR ---
PLACED CALL TO TAPPER SHANK, PATIENT IS ON THE LIST FOR ECHO THIS AFTERNOON.
[2019-01-23 12:30] VITALS: BP 150/95
--- NOTE | 2019-01-23 13:06 | NUR ---
PATIENT STATING THAT HE WANTS TO LEAVE AMA TO CHECK ON HIS FATHER AT HOME, WHO IS NOT ANSWERING THE PHONE. PAPERWORK SIGNED AND PLACED IN CHART.
--- NOTE | 2019-01-23 13:45 | NUR ---
AMA Note STEFANIE SPENCER states they want to leave the hospital Against Medical Advice (AMA). Patient encouraged to stay for further treatment/stabilization. DR. ANGULO notified of patient's wishes. Patient advised of the risks and benefits of leaving AMA. Patient verbalized understanding. Patient encouraged to return to the ER if symptoms do not improve or worsen.
--- NOTE | 2019-01-25 11:01 | NUR ---
Weekend monorail charger operator-I did not receive a page regarding the social service consult on this patient.
== END 2019-01-23 14:20 | disposition left against medical advice (07) | DRG 139 ==
LOC: ER 04:28 → TELE 08:10 → TELE-WESTW 10:29
PROVIDERS: ADMIT Internal Medicine; ATTEND Internal Medicine
DX: J18.9 Pneumonia, unspecified organism (principal); I50.43 Acute on chronic combined systolic (congestive) and diastolic (congestive) heart failure; J90 Pleural effusion, not elsewhere classified; E11.51 Type 2 diabetes mellitus with diabetic peripheral angiopathy without gangrene; I42.9 Cardiomyopathy, unspecified; I11.0 Hypertensive heart disease with heart failure; D63.8 Anemia in other chronic diseases classified elsewhere; E78.5 Hyperlipidemia, unspecified; Z53.21 Procedure and treatment not carried out due to patient leaving prior to being seen by health care provider; F17.210 Nicotine dependence, cigarettes, uncomplicated; Z88.6 Allergy status to analgesic agent; Z88.5 Allergy status to narcotic agent; Z90.49 Acquired absence of other specified parts of digestive tract; Z82.0 Family history of epilepsy and other diseases of the nervous system; Z91.14 Patient's other noncompliance with medication regimen; Z79.899 Other long term (current) drug therapy
CPT/HCPCS: 36415; 71045; 80053; 80307; 81001; 82550; 83605; 83735; 83880; 84484; 85025; 87040; 93005; 93306; 94640; 96365; 96366; 96368; 96372; 96375; G0378; J0696; J1956

== ENCOUNTER 2019-03-03 15:43 | Inpatient (IN) | payer MEDICAID ==
[~2019-03-03] VITALS: Ht 165.1 cm; Wt 84.1 kg
[~2019-03-03 15:43] MED LIST changes: +ALBUAER3 IN; -ASPI81TA27 PO; +CAR3125T PO; +ENAL2.5T2 PO; +FURO1TAB31 PO; -FURO40TA4 PO; -HYDR10TA26 PO; -LISI10TA6 PO; -METO25TA5 PO; +POTA25TA23 PO
[2019-03-03 16:16] LABS: Basophils # (auto) 0.2 uL; Eosinophils # (auto) 0.1 uL; Lymphocytes # (auto) 1.7 uL; Monocytes # (auto) 0.7 uL; Nucleated Red Blood Cells % 0.1 %
[2019-03-03 16:17] LABS: Basophils % (auto) 2.6 % (0.0-2.0); Eosinophils % (auto) 1.5 % (0.0-7.0); Hematocrit 37.7 % (41.0-53.0); Hemoglobin 11.7 g/dL (13.5-17.5); Lymphocytes % (auto) 20.2 % (10.0-50.0); Mean Corpuscular Hemoglobin 20.8 pg (28.0-32.0); Mean Corpuscular Hgb Conc. 31.1 g/dL (32.0-36.0); Mean Corpuscular Volume 66.7 fL (80.0-100.0); Monocytes % (auto) 8.2 % (0.0-12.0); Neutrophils # (auto) 5.6 uL; Neutrophils % (auto) 67.5 % (37.0-80.0); Platelet Count (auto) 210 10^3/uL (140-450); Red Blood Cells 5.65 10^6/uL (4.5-5.90); White Blood Cell 8.3 10^3/uL (4.4-10.8)
[2019-03-03 16:24] LABS: Albumin 3.5 g/dL (3.4-5.0); BUN/Creatinine Ratio 27.5; Calcium 8.6 mg/dL (8.5-10.1); Potassium 3.5 mmol/L (3.5-5.1)
[2019-03-03 16:27] LABS: Red Cell Distribution Width 24.3 % (11.8-14.3)
[2019-03-03] MEDS ORDERED: LABETALOL HCL 5 MG/ML ML 20ML VIAL IV ONE (16:30)
[2019-03-03] MEDS ORDERED: cloNIDine HCL 0.1 MG TAB PO ONE (16:30)
[2019-03-03] MEDS ORDERED: hydrALAZINE HCL 20 MG/ML VL IV ONE (16:30)
[2019-03-03] MEDS ORDERED: SODIUM CHLORIDE 0.9% 1,000 ML IV ONE (16:30)
[2019-03-03 16:36] LABS: Total Protein 7.2 g/dL (6.4-8.2)
[2019-03-03] MEDS ORDERED: ACETAMINOPHEN 500 MG TAB PO PRN (19:30)
[2019-03-03] MEDS ORDERED: ONDANSETRON HCL 4 MG/2 ML VIAL IV PRN (19:30)
[2019-03-03] MEDS ORDERED: MORPHINE SULF INJ 2 MG/ML SYRINGE 1ML IV PRN ×2 (19:30)
[2019-03-03] MEDS ORDERED: NITROGLYCERIN 0.4 MG SL TAB SL PRN (19:30)
[2019-03-03] MEDS ORDERED: DOCUSATE SOD 100 MG CAP PO PRN (19:30)
[2019-03-03] MEDS ORDERED: HYDROcodone-ACET 5/325MG TAB PO PRN (19:30)
[2019-03-03 20:50] VITALS: BP 168/112
--- NOTE | 2019-03-03 20:50 | NUR ---
Telemetry admit from ER STEFANIE SPENCER admitted to Telemetry unit after SBAR received from ED RNDarryl. Patient oriented to SERENE MANN, primary RN, unit, room, bed, and unit policies regarding patient care and visiting hours. Patient now on continuous telemetry monitoring, tele box #34 and telemetry reading on arrival to unit is Sinus Rhythm 67bpm. Patient placed on bedside oxygen, weighed by bedscale and encouraged to call if they need something. All questions and concerns addressed, patient verbalized understanding.
[2019-03-03] MEDS ORDERED: ENAL5TAB PO (21:35)
[2019-03-03] MEDS ORDERED: POTA10TA51 PO (21:35)
[2019-03-03 22:00] VITALS: BP 168/112
[2019-03-03] MEDS ORDERED: CARVEDILOL 3.125 MG TAB PO SCH (22:00)
[2019-03-03 23:30] VITALS: BP 164/129
[2019-03-03] MEDS: LABETALOL HCL 5 MG/ML ML 20ML VIAL IV PRN (23:40)
[2019-03-04] MEDS: LABETALOL HCL 5 MG/ML ML 20ML VIAL IV PRN (01:47)
--- NOTE | 2019-03-04 04:29 | NUR ---
ROUNDS PATIENT AWAKE AND ALERT, SITTING UP ON SIDE OF BED. DENIES ANY PAIN OR DISCOMFORT. CALL LIGHT WITHIN REACH.
[2019-03-04 05:00] VITALS: BP 135/91
--- NOTE | 2019-03-04 05:30 | NUR ---
RESOURCE RECOVERY ENGINEER BALBIR CAME UP TO SEE PATIENT. [place] [facility] [place]IENTS FATHER IN CPR PROGRESS. PATIENT VERBALIZES HE NEEDS TO GO SEE HIS FATHER. PATIENT WILL LEAVE AMA.
--- NOTE | 2019-03-04 05:50 | NUR ---
IV removal IV DC'd with sterile technique, catheter fully intact. Pressure dressing applied to site. Patient tolerated procedure well. Discharged with aftercare instructions per MD.
--- NOTE | 2019-03-04 05:55 | NUR ---
AMA Note STEFANIE SPENCER states they want to leave the hospital Against Medical Advice (AMA). Patient encouraged to stay for further treatment/stabilization. Patient advised of the risks and benefits of leaving AMA. Patient verbalized understanding. Patient encouraged to return to the ER if symptoms do not improve or worsen.
--- NOTE | 2019-03-04 05:55 | NUR ---
TELE BOX CLEANED AND RETURNED TO BRIANA.
[2019-03-04] MEDS ORDERED: FUROSEMIDE 20 MG/2 ML VIAL IV SCH (06:00)
[2019-03-04] MEDS ORDERED: ENALAPRIL MALEATE 10 MG TAB PO SCH (10:00)
[2019-03-04] MEDS ORDERED: FAMOTIDINE 20 MG TAB PO SCH (10:00)
[2019-03-04] MEDS ORDERED: PNEUMOCOCCAL VACC POLYS 25 MCG/0.5 ML VIAL IM ONE (10:00)
[2019-03-12] MEDS ORDERED: SACU1TAB PO (11:52)
[2019-03-12] MEDS ORDERED: CARV6.2551 PO (11:52)
[2019-03-12] MEDS ORDERED: AMLO10TA13 PO (11:52)
== END 2019-03-04 05:58 | disposition left against medical advice (07) | DRG 199 ==
LOC: ER 15:46 → TELE 15:47 → TELE-WESTW 20:52
PROVIDERS: ADMIT Nurse Practitioner Acute Care; ATTEND Nurse Practitioner Acute Care
DX: I16.9 Hypertensive crisis, unspecified (principal); I50.43 Acute on chronic combined systolic (congestive) and diastolic (congestive) heart failure; I42.9 Cardiomyopathy, unspecified; N18.3 Chronic kidney disease, stage 3 (moderate); R17 Unspecified jaundice; D50.9 Iron deficiency anemia, unspecified; F15.10 Other stimulant abuse, uncomplicated; F17.210 Nicotine dependence, cigarettes, uncomplicated; I13.0 Hypertensive heart and chronic kidney disease with heart failure and stage 1 through stage 4 chronic kidney disease, or unspecified chronic kidney disease; Z53.21 Procedure and treatment not carried out due to patient leaving prior to being seen by health care provider; Z79.899 Other long term (current) drug therapy; Z80.42 Family history of malignant neoplasm of prostate; Z82.0 Family history of epilepsy and other diseases of the nervous system; Z82.49 Family history of ischemic heart disease and other diseases of the circulatory system; Z83.3 Family history of diabetes mellitus; Z88.5 Allergy status to narcotic agent
CPT/HCPCS: 36415; 71045; 80053; 83735; 83880; 84443; 84484; 85025; 85379; 87081; 93005; 94761; 96361; 96374; 96375; G0378

== ENCOUNTER 2019-03-08 06:16 | Inpatient (IN) | payer MEDICAID ==
[~2019-03-08] VITALS: Ht 162.6 cm; Wt 74.5 kg
[~2019-03-08 06:16] MED LIST changes: -ALBUAER3 IN; -ENAL2.5T2 PO; +ENAL5TAB PO; +POTA10TA51 PO; -POTA25TA23 PO
[2019-03-08] MEDS ORDERED: cefTRIAXone 1GM/50ML D5W 50 ML IV ONE (07:00)
[2019-03-08] MEDS ORDERED: FUROSEMIDE 40 MG/4 ML VIAL IV ONE (07:00)
[2019-03-08] MEDS ORDERED: CLINDAMYCIN 900MG IV 50 ML IV ONE (07:00)
[2019-03-08 07:58] LABS: Eosinophils # (auto) 0.3 uL; Hemoglobin 11.7 g/dL (13.5-17.5); Nucleated Red Blood Cells % 0.1 %; White Blood Cell 8.6 10^3/uL (4.4-10.8)
[2019-03-08 07:59] LABS: Basophils # (auto) 0 uL; Basophils % (auto) 0.3 % (0.0-2.0); Hematocrit 38.2 % (41.0-53.0); Lymphocytes # (auto) 1.6 uL; Lymphocytes % (auto) 18.4 % (10.0-50.0); Mean Corpuscular Hemoglobin 20.7 pg (28.0-32.0); Mean Corpuscular Hgb Conc. 30.6 g/dL (32.0-36.0); Mean Corpuscular Volume 67.7 fL (80.0-100.0); Monocytes # (auto) 0.9 uL; Neutrophils # (auto) 5.8 uL; Neutrophils % (auto) 67.3 % (37.0-80.0); Platelet Count (auto) 209 10^3/uL (140-450); Red Blood Cells 5.65 10^6/uL (4.5-5.90)
[2019-03-08] MEDS ORDERED: cloNIDine HCL 0.1 MG TAB ONE (08:01)
[2019-03-08 08:03] LABS: Red Cell Distribution Width 23.9 % (11.8-14.3)
[2019-03-08] MEDS ORDERED: cloNIDine HCL 0.1 MG TAB PO ONE (08:15)
[2019-03-08 08:16] LABS: Albumin 3.1 g/dL (3.4-5.0); BUN/Creatinine Ratio 28.2; Calcium 7.9 mg/dL (8.5-10.1); Magnesium 1.9 mg/dL (1.6-2.6); Potassium 3.8 mmol/L (3.5-5.1)
[2019-03-08 08:19] LABS: Lactic Acid w/Reflex 2.2 mmol/L (0.4-2.0)
[2019-03-08 08:21] LABS: Bilirubin, Total 1.7 mg/dL (0.2-1.0); Total Protein 6.3 g/dL (6.4-8.2)
[2019-03-08] MEDS ORDERED: LABETALOL HCL 5 MG/ML ML 20ML VIAL IV ONE (09:00)
[2019-03-08 09:28] LABS: Urine Bacteria NONE SEEN /hpf (None Seen); Urine Blood Negative /uL (Negative); Urine Specific Gravity 1.004 (1.001-1.035); Urine WBC <1 /hpf (0 - 3)
[2019-03-08] MEDS ORDERED: ENALAPRIL MALEATE 10 MG TAB PO ONE (10:00)
[2019-03-08] MEDS ORDERED: ONDANSETRON HCL 4 MG/2 ML VIAL IV PRN (10:15)
[2019-03-08] MEDS ORDERED: HYDROcodone-ACET 5/325MG TAB PO PRN (10:15)
[2019-03-08] MEDS ORDERED: NITROGLYCERIN 0.4 MG SL TAB SL PRN (10:15)
[2019-03-08] MEDS ORDERED: MORPHINE SULF INJ 2 MG/ML SYRINGE 1ML IV PRN ×2 (10:15)
[2019-03-08 10:32] LABS: Alcohol, Urine < 3.0 mg/dL (0-5); Amphetamine Screen, Urine NEGATIVE (NEGATIVE); Barbiturate Scree,Urine NEGATIVE (NEGATIVE); Benzodiazephine Screen, Urine NEGATIVE (NEGATIVE); Cannabinoid Screen, Urine NEGATIVE (NEGATIVE); Cocaine Screen, Urine NEGATIVE (NEGATIVE); Opiate Scree,Urine NEGATIVE (NEGATIVE); Phencyclidine Screen, Urine NEGATIVE (NEGATIVE)
[2019-03-08] MEDS: FUROSEMIDE 40 MG TAB PO SCH (10:43)
[2019-03-08] MEDS: LABETALOL HCL 5 MG/ML ML 20ML VIAL IV PRN ×2 (12:41→15:32)
[2019-03-08] MEDS: hydrALAZINE HCL 20 MG/ML VL IV ONE ×2 (16:38→18:54)
[2019-03-08] MEDS: CARVEDILOL 3.125 MG TAB PO SCH (21:31)
--- NOTE | 2019-03-08 21:55 | NUR ---
OPENING NOTE RECEIVED PATIENT FROM ER. NO REPORT RECEIVED. ASSUMING ROLE OF CARE OF PATIENT AT THIS TIME. PATIENT SHOWING NO SIGN OF DISTRESS, SHORTNESS OF BREATH, AND PATIENT DENIES ANY PAIN AT THIS TIME. PATIENT EDUCATED ON PLAN OF CARE FOR THE NIGHT AND PATIENT VERBALIZED UNDERSTANDING. BED LOWERED, CALL LIGHT WITHIN REACH AND PATIENT WILL BE ROUNDED ON EVERY HOUR AND NEEDED.
[2019-03-08] MEDS ORDERED: VANCOMYCIN PER PHARMACY 0 MG IV SCH (22:30)
[2019-03-08 22:40] VITALS: BP 123/87
[2019-03-08] MEDS ORDERED: PNEUMOCOCCAL VACC POLYS 25 MCG/0.5 ML VIAL IM ONE (22:45)
[2019-03-08] MEDS ORDERED: VANCOMYCIN 1GM/250ML 250 ML IV ONE (23:00)
[2019-03-08 23:26] VITALS: BP 123/87
[2019-03-09] MEDS: ACETAMINOPHEN 500 MG TAB PO PRN (03:23)
[2019-03-09 06:56] LABS: BUN/Creatinine Ratio 31.2; Calcium 7.4 mg/dL (8.5-10.1)
--- NOTE | 2019-03-09 07:30 | NUR ---
STATUS PT RESTING IN BED WITH EYES CLOSED, RESPIRATIONS EQUAL AND UNLABORED. NO S/S OF DISTRESS OR DISCOMFORT. BED IN LOW POSITION WITH CALL LIGHT IN REACH.
--- NOTE | 2019-03-09 08:00 | NUR ---
SMITH CATHETER REMOVED CATHETER IN TACT, PT TOLERATED WELL 500ML OF YELLOW URINE REMOVED URINAL OFFERED, PT REFUSED STATES HE WILL AMBULATE RESTROOM EDUCATED HIM TO CALL FIRST FOR ASSISTANCE AND VERBALIZED UNDERSTANDING
[2019-03-09 08:57] VITALS: BP 144/102
[2019-03-09] MEDS ORDERED: FAMOTIDINE 20 MG TAB PO SCH (10:00)
[2019-03-09] MEDS: VANCOMYCIN 1GM/250ML 250 ML IV SCH ×2 (11:14→20:23)
[2019-03-09] MEDS: cefTRIAXone 1GM/50ML D5W 50 ML IV SCH (11:14)
[2019-03-09 11:16] LABS: Basophils # (auto) 0.1 uL; Basophils % (auto) 1.3 % (0.0-2.0); Eosinophils # (auto) 0.3 uL; Eosinophils % (auto) 3.7 % (0.0-7.0); Hematocrit 35.3 % (41.0-53.0); Lymphocytes # (auto) 1.3 uL; Mean Corpuscular Hemoglobin 20.9 pg (28.0-32.0); Mean Corpuscular Hgb Conc. 31.3 g/dL (32.0-36.0); Mean Corpuscular Volume 66.7 fL (80.0-100.0); Monocytes # (auto) 1.2 uL; Neutrophils # (auto) 5.6 uL; Nucleated Red Blood Cells % 0.1 %; Platelet Count (auto) 173 10^3/uL (140-450); Red Blood Cells 5.28 10^6/uL (4.5-5.90); White Blood Cell 8.5 10^3/uL (4.4-10.8)
[2019-03-09] MEDS: FUROSEMIDE 40 MG TAB PO SCH (11:16)
[2019-03-09] MEDS: CARVEDILOL 3.125 MG TAB PO SCH ×2 (11:16→21:14)
[2019-03-09 11:17] LABS: Red Cell Distribution Width 23.5 % (11.8-14.3)
[2019-03-09 12:16] LABS: INR 1.39 (0.9-1.15); Partial Thromboplastin Time 30.3 sec (23.64-32.05)
[2019-03-09 12:30] VITALS: BP 132/84
--- NOTE | 2019-03-09 12:30 | NUR ---
MOTHER AT BEDSIDE PT MOTHER DROVE IN FROM [facility] TO ASSIST PT IN GETTING PAPERWORK TOGETHER AFTER PT FATHER PASSED LAST WEEK. SHE STATES THAT PT IS NONCOMPLIANT AND REFUSES TO HELP HIMSELF.
[2019-03-09 17:27] VITALS: BP 122/63
[2019-03-09] MEDS ORDERED: POTASSIUM CHL 20 Meq TABLET PO ONE (18:45)
[2019-03-09] MEDS: POTASSIUM CHL 20MEQ/100ML 100 ML IV SCH ×2 (19:12→22:06)
--- NOTE | 2019-03-09 20:00 | NUR ---
OPENING NOTE RECEIVED REPORT FROM DAYSHIFT RN. ASSUMING ROLE OF CARE OF PATIENT AT THIS TIME. PATIENT SHOWING NO SIGN OF DISTRESS, SHORTNESS OF BREATH, AND PATIENT DENIES ANY PAIN AT THIS TIME. MD DAMICO AT BEDSIDE AND ORDERS RECEIVED. WILL ADMINISTER ORDERS AVAILABLE. PATIENT EDUCATED ON PLAN OF CARE FOR THE NIGHT AND PATIENT VERBALIZED UNDERSTANDING. BED LOWERED, CALL LIGHT WITHIN REACH, AND PATIENT WILL BE ROUNDED ON EVERY HOUR AND NEEDED.
[2019-03-09] MEDS: FAMOTIDINE 20 MG TAB PO SCH (21:15)
[2019-03-09 22:00] VITALS: BP 159/112
[2019-03-09] MEDS ORDERED: ENALAPRIL MALEATE 10 MG TAB PO SCH (22:00)
--- NOTE | 2019-03-09 22:01 | NUR ---
HOSPITALIST PAGED PATIENT REQUESTING TO HAVE A NICOTINE PATCH AND A SLEEPING PILL. PATIENT IS UNABLE TO WALK OUTSIDE WITHOUT ASSISTANCE BUT STATES A DESIRE TO BE TAKEN DOWN. NO ONE AVAILABLE TO ESCORT PATIENT. WILL AWAIT CALL BACK OR ORDERS. Addendum: 03/09/19 at 2225 by GAYATHRI LEHMAN RN PATIENT NO LONGER HOSPITALIST PATIENT. PLEASE DISREGARD.
[2019-03-09] MEDS: LABETALOL HCL 5 MG/ML ML 20ML VIAL IV PRN (22:57)
[2019-03-10 04:09] LABS: Basophils # (auto) 0.3 uL; Eosinophils # (auto) 0.5 uL; Hematocrit 33.5 % (41.0-53.0); Hemoglobin 10.6 g/dL (13.5-17.5); Monocytes # (auto) 1.1 uL; White Blood Cell 7.4 10^3/uL (4.4-10.8)
[2019-03-10 04:11] LABS: Basophils % (auto) 3.9 % (0.0-2.0); Eosinophils % (auto) 7.4 % (0.0-7.0); Lymphocytes # (auto) 1.2 uL; Lymphocytes % (auto) 15.9 % (10.0-50.0); Mean Corpuscular Hemoglobin 20.9 pg (28.0-32.0); Mean Corpuscular Hgb Conc. 31.7 g/dL (32.0-36.0); Mean Corpuscular Volume 66.1 fL (80.0-100.0); Monocytes % (auto) 14.6 % (0.0-12.0); Neutrophils # (auto) 4.3 uL; Neutrophils % (auto) 58.2 % (37.0-80.0); Platelet Count (auto) 175 10^3/uL (140-450); Red Blood Cells 5.08 10^6/uL (4.5-5.90)
[2019-03-10 04:23] LABS: Red Cell Distribution Width 23.1 % (11.8-14.3)
[2019-03-10 04:28] LABS: BUN/Creatinine Ratio 26.6; Calcium 7.3 mg/dL (8.5-10.1); Potassium 3.8 mmol/L (3.5-5.1)
[2019-03-10 04:52] VITALS: BP 153/89
[2019-03-10] MEDS: LABETALOL HCL 5 MG/ML ML 20ML VIAL IV PRN ×2 (06:07→21:00)
[2019-03-10] MEDS: VANCOMYCIN 1GM/250ML 250 ML IV SCH (06:39)
--- NOTE | 2019-03-10 07:40 | NUR ---
OPENING NOTES ASSUMED CARE OF PT. ALERT AND ORIENTED. NO SIGNS OF SOB/DISTRESS NOTED. DENIES ANY PAIN. BED SET TO LOWEST POSITION/LOCKED. BEDSIDE RAILS UP X2. CALL LIGHT WITHIN REACH. INSTRUCTED PT TO CALL FOR ASSISTANCE. DISCUSSED POC. WILL CONTINUE TO MONITOR Q1HR AND PRN.
[2019-03-10 09:00] VITALS: BP 159/103
[2019-03-10] MEDS: cefTRIAXone 1GM/50ML D5W 50 ML IV SCH (09:24)
[2019-03-10] MEDS: FUROSEMIDE 40 MG TAB PO SCH (09:25)
[2019-03-10] MEDS: FAMOTIDINE 20 MG TAB PO SCH ×2 (09:25→22:33)
[2019-03-10] MEDS: CARVEDILOL 3.125 MG TAB PO SCH ×2 (09:25→22:33)
[2019-03-10] MEDS ORDERED: POTASSIUM CHL 20 Meq TABLET PO SCH (10:00)
[2019-03-10] MEDS: ACETAMINOPHEN 500 MG TAB PO PRN (11:20)
--- NOTE | 2019-03-10 11:45 | NUR ---
Received referral to speak with pt due to his substance abuse issues. Pt is not very interested in any resources. Left substance abuse packet at bedside.
[2019-03-10 13:00] VITALS: BP 175/118
--- NOTE | 2019-03-10 13:34 | NUR ---
STEFANIE SPENCER states they want to leave the floor Against Medical Advice (AMA) to go outside and smoke. Patient encouraged to stay on floor and not smoke. Sol Hightower notified of patient's wishes. Patient advised of the risks and benefits of leaving AMA. Patient verbalized understanding and signed required AMA form.
[2019-03-10] MEDS ORDERED: CARVEDILOL 3.125 MG TAB PO ONE (13:45)
--- NOTE | 2019-03-10 16:27 | NUR ---
assessment Patient is a 48 year old male who is alert and oriented. Prior to admission patient lived home alone and functioned independently. Patient informed me he has no need for DME. Patient informed me his PCP is Dr Acosta. Patient informed me he does not need resources for substance abuse. Patient feels safe returning home on discharge. Patient verbalized understanding and agreed to discharge plan home. Addendum: 03/11/19 at 1630 by Josi ARANA Amended: Links added.
[2019-03-10 17:03] VITALS: BP 156/107
[2019-03-10] MEDS: FUROSEMIDE 40 MG/4 ML VIAL IV SCH (17:37)
[2019-03-10] MEDS ORDERED: VANCOMYCIN 1GM/250ML 250 ML IV SCH (18:00)
--- NOTE | 2019-03-10 19:40 | NUR ---
Opening Shift Note Assumed care of patient, alert and oriented x 4. On room air and ambulatory. No S/S of distress/SOB or pain. Bed in lowest locked position, side rails up x 2, call light within reach. Instructed on POC and to call for assist PRN, will continue to monitor for changes Q1hr and PRN.
--- NOTE | 2019-03-10 20:30 | NUR ---
Patient went down to smoke. AMA signed and documented in patient hard chart.
--- NOTE | 2019-03-10 20:39 | NUR ---
Patient back to room. Will continue to monitor.
--- NOTE | 2019-03-10 20:49 | NUR ---
Blood pressure GEN Benavides, reported patient's blood pressure of 194/126. Reassessed patient, blood pressure reading 157/105. Gave patient Labetolol IV 10mg per orders for SBP >150. No S/S of distress noted. Patient is resting in bed. Will reassess and continue to monitor.
[2019-03-10] MEDS ORDERED: amLODIPine BESYLATE 5 MG TAB PO ONE (21:15)
[2019-03-10 21:30] VITALS: BP 194/126
[2019-03-10] MEDS ORDERED: VANCOMYCIN PER PHARMACY 0 MG IV SCH (21:30)
[2019-03-10] MEDS ORDERED: ENALAPRIL MALEATE 10 MG TAB PO SCH (22:00)
[2019-03-10] MEDS ORDERED: CARVEDILOL 12.5 MG TAB PO SCH (22:00)
[2019-03-10] MEDS ORDERED: CLINDAMYCIN HCL 150 MG CAP PO SCH (22:00)
[2019-03-10] MEDS: POTASSIUM CHL 20 Meq TABLET PO SCH (22:33)
[2019-03-11 04:17] LABS: Basophils # (auto) 0.1 uL; Basophils % (auto) 1.5 % (0.0-2.0); Eosinophils # (auto) 0.6 uL; Eosinophils % (auto) 8.7 % (0.0-7.0); Hematocrit 32.6 % (41.0-53.0); Hemoglobin 10.5 g/dL (13.5-17.5); Lymphocytes # (auto) 1.3 uL; Lymphocytes % (auto) 19.1 % (10.0-50.0); Mean Corpuscular Hemoglobin 21.3 pg (28.0-32.0); Mean Corpuscular Hgb Conc. 32.1 g/dL (32.0-36.0); Mean Corpuscular Volume 66.2 fL (80.0-100.0); Monocytes % (auto) 15.6 % (0.0-12.0); Neutrophils # (auto) 3.7 uL; Neutrophils % (auto) 55.1 % (37.0-80.0); Platelet Count (auto) 171 10^3/uL (140-450); Red Blood Cells 4.93 10^6/uL (4.5-5.90); Red Cell Distribution Width 22.7 % (11.8-14.3); White Blood Cell 6.7 10^3/uL (4.4-10.8)
[2019-03-11 04:39] LABS: BUN/Creatinine Ratio 27.8; Calcium 7.8 mg/dL (8.5-10.1); Potassium 3.8 mmol/L (3.5-5.1)
[2019-03-11 05:00] VITALS: BP 152/96
[2019-03-11] MEDS ORDERED: VANCOMYCIN 1GM/250ML 250 ML IV SCH (06:00)
[2019-03-11] MEDS: FUROSEMIDE 40 MG/4 ML VIAL IV SCH (06:02)
[2019-03-11 09:00] VITALS: BP 159/94
[2019-03-11] MEDS ORDERED: cefTRIAXone 1GM/50ML D5W 50 ML IV SCH (09:00)
[2019-03-11] MEDS: CARVEDILOL 3.125 MG TAB PO SCH (09:34)
[2019-03-11] MEDS: POTASSIUM CHL 20 Meq TABLET PO SCH (09:34)
[2019-03-11] MEDS: FAMOTIDINE 20 MG TAB PO SCH (09:35)
[2019-03-11] MEDS ORDERED: amLODIPine BESYLATE 5 MG TAB PO SCH (10:00)
--- NOTE | 2019-03-11 11:06 | NUR ---
Estimated needs based on AJBW 62.9 kg-Wt. maintenance factors 2813-3788 kcal (25-27 kcal/kg) 50-63 g protein (0.8-1.0 g/kg) Addendum: 03/11/19 at [address] Amended: Links added.
--- NOTE | 2019-03-11 12:05 | NUR ---
SAMANTA CARRANZA FROM MICRO 20 MIN TO FINALIZE BLOOD CULTURE REPORT.
[2019-03-11 13:00] VITALS: BP 160/92
[2019-03-11] MEDS ORDERED: SPIRONOLACTONE 25 MG TAB PO ONE (14:30)
[2019-03-11 15:57] VITALS: BP 137/62
--- NOTE | 2019-03-11 16:56 | NUR ---
Discharge instructions given as ordered. Encourage to follow up with PMD as instructed. All questions and concerns addressed. Patient verbalized understanding. IV removed with catheter intact, pressure dressing applied. Telemetry unit returned to ICU.
--- NOTE | 2019-03-11 16:56 | NUR ---
HAVEN REFUSED PNEUMOCOCCAL VACCINE UPON DISCHARGE.
--- NOTE | 2019-03-11 17:18 | NUR ---
Patient taken to vehicle via wheelchair with all personal belongings, accompanied by staff and family member. No distress noted at time of departure.
[2019-03-11] MEDS ORDERED: SPIRONOLACTONE 25 MG TAB PO SCH (18:00)
[2019-03-11] MEDS ORDERED: CARVEDILOL 12.5 MG TAB PO SCH ×2 (22:00)
[2019-03-12] MEDS ORDERED: SACUBITRIL-VALSARTAN 24mg/26mg TAB PO SCH (10:00)
[2019-03-12] MEDS ORDERED: SACU1TAB PO (11:52)
[2019-03-12] MEDS ORDERED: CARV6.2551 PO (11:52)
[2019-03-12] MEDS ORDERED: AMLO10TA13 PO (11:52)
== END 2019-03-11 17:25 | disposition home or self-care (01) | DRG 190 ==
LOC: ER 06:22 → TELE 06:23 → TELE-CENTR 22:30
PROVIDERS: ADMIT Nurse Practitioner Acute Care; ATTEND Internal Medicine
PROC: 0W993ZZ Drainage of Right Pleural Cavity, Percutaneous Approach (ICD-10-PCS; principal; 2019-03-08)
DX: I21.4 Non-ST elevation (NSTEMI) myocardial infarction (principal); I50.43 Acute on chronic combined systolic (congestive) and diastolic (congestive) heart failure; E87.2 Acidosis; J91.8 Pleural effusion in other conditions classified elsewhere; R78.81 Bacteremia; E44.1 Mild protein-calorie malnutrition; I42.9 Cardiomyopathy, unspecified; I11.0 Hypertensive heart disease with heart failure; L03.115 Cellulitis of right lower limb; B95.4 Other streptococcus as the cause of diseases classified elsewhere; L03.116 Cellulitis of left lower limb; D50.9 Iron deficiency anemia, unspecified; E11.9 Type 2 diabetes mellitus without complications; D63.8 Anemia in other chronic diseases classified elsewhere; F15.10 Other stimulant abuse, uncomplicated; I16.9 Hypertensive crisis, unspecified; F17.210 Nicotine dependence, cigarettes, uncomplicated; Z79.899 Other long term (current) drug therapy; Z80.42 Family history of malignant neoplasm of prostate; Z82.0 Family history of epilepsy and other diseases of the nervous system; Z82.49 Family history of ischemic heart disease and other diseases of the circulatory system; Z83.3 Family history of diabetes mellitus; Z91.14 Patient's other noncompliance with medication regimen; Z88.5 Allergy status to narcotic agent; Z90.49 Acquired absence of other specified parts of digestive tract; Z28.20 Immunization not carried out because of patient decision for unspecified reason; Q89.8 Other specified congenital malformations
CPT/HCPCS: 10022; 32555; 36415; 71045; 71046; 76604; 76942; 80048; 80053; 80202; 80307; 81001; 83605; 83735; 83880; 84484; 85025; 85610; 85730; 87040; 87077; 87081; 87186; 93005; 93970; 94761; 96365; 96367; 96375; G0378; J0696; J3480; J3490

== ENCOUNTER 2019-05-19 13:12 | Inpatient (IN) | payer MEDICAID ==
[~2019-05-19] VITALS: Ht 165.1 cm; Wt 84.5 kg
[~2019-05-19 13:12] MED LIST changes: +AMLO10TA13 PO; -CAR3125T PO; +CARV6.2551 PO; -ENAL5TAB PO; +SACU1TAB PO
[2019-05-19] MEDS ORDERED: SODIUM CHLORIDE 0.9% 1,000 ML IV ONE ×2 (13:39→15:59)
[2019-05-19] MEDS ORDERED: cloNIDine HCL 0.1 MG TAB PO ONE (13:45)
[2019-05-19] MEDS ORDERED: LABETALOL HCL 5 MG/ML ML 20ML VIAL IV ONE (13:45)
[2019-05-19] MEDS ORDERED: hydrALAZINE HCL 20 MG/ML VL IV ONE (13:45)
[2019-05-19 14:16] LABS: Basophils # (auto) 0.2 uL; Eosinophils # (auto) 0.1 uL; Eosinophils % (auto) 1.2 % (0.0-7.0); Lymphocytes # (auto) 1.7 uL; Monocytes # (auto) 0.7 uL; Neutrophils # (auto) 6.6 uL
[2019-05-19 14:20] LABS: Basophils % (auto) 2.1 % (0.0-2.0); Hematocrit 41.1 % (41.0-53.0); Hemoglobin 13.2 g/dL (13.5-17.5); Lymphocytes % (auto) 18.3 % (10.0-50.0); Mean Corpuscular Hemoglobin 22.6 pg (28.0-32.0); Mean Corpuscular Hgb Conc. 32.1 g/dL (32.0-36.0); Mean Corpuscular Volume 70.4 fL (80.0-100.0); Monocytes % (auto) 7.8 % (0.0-12.0); Neutrophils % (auto) 70.6 % (37.0-80.0); Platelet Count (auto) 302 10^3/uL (140-450); Red Blood Cells 5.84 10^6/uL (4.5-5.90); White Blood Cell 9.3 10^3/uL (4.4-10.8)
[2019-05-19 14:23] LABS: Red Cell Distribution Width 23.1 % (11.8-14.3)
[2019-05-19 14:33] LABS: Albumin 3.6 g/dL (3.4-5.0); BUN/Creatinine Ratio 20.6; Calcium 8.5 mg/dL (8.5-10.1); Magnesium 2.1 mg/dL (1.6-2.6); Potassium 4.2 mmol/L (3.5-5.1)
[2019-05-19 15:00] LABS: Bilirubin, Total 1.5 mg/dL (0.2-1.0); Total Protein 7.7 g/dL (6.4-8.2)
[2019-05-19] MEDS ORDERED: FUROSEMIDE 40 MG/4 ML VIAL IV ONE (16:00)
[2019-05-19] MEDS ORDERED: SPIRONOLACTONE 25 MG TAB PO ONE (16:00)
[2019-05-19] MEDS: NICARDIPINE 25MG/250ML BAG KIT 250 ML IV SCH ×2 (16:12→21:57)
[2019-05-19] MEDS ORDERED: SPIRONOLACTONE 25 MG TAB ONE (16:15)
[2019-05-19 17:07] LABS: Urine Bacteria NONE SEEN /hpf (None Seen); Urine Blood Negative /uL (Negative); Urine Specific Gravity 1.005 (1.001-1.035); Urine WBC 1 /hpf (0 - 3)
[2019-05-19 17:13] LABS: Alcohol, Urine < 3.0 mg/dL (0-5); Amphetamine Screen, Urine POSITIVE (NEGATIVE); Barbiturate Scree,Urine NEGATIVE (NEGATIVE); Benzodiazephine Screen, Urine NEGATIVE (NEGATIVE); Cannabinoid Screen, Urine NEGATIVE (NEGATIVE); Cocaine Screen, Urine NEGATIVE (NEGATIVE); Opiate Scree,Urine NEGATIVE (NEGATIVE); Phencyclidine Screen, Urine NEGATIVE (NEGATIVE)
[2019-05-19] MEDS ORDERED: NITROGLYCERIN 0.4 MG SL TAB SL PRN (17:15)
[2019-05-19] MEDS ORDERED: ONDANSETRON HCL 4 MG/2 ML VIAL IV PRN (17:15)
[2019-05-19] MEDS ORDERED: IPRATROPIUM BROM 0.5 MG/2.5ML INH SOL NEB PRN (17:15)
[2019-05-19] MEDS ORDERED: ALBUTEROL SULF 2.5 MG/0.5ML(0.5%) NEB SOLN NEB PRN (17:15)
[2019-05-19] MEDS ORDERED: MORPHINE SULF INJ 2 MG/ML SYRINGE 1ML IV PRN ×2 (17:15)
[2019-05-19] MEDS ORDERED: ACETAMINOPHEN 500 MG TAB PO ONE (17:30)
[2019-05-19 17:35] VITALS: BP 179/119
--- NOTE | 2019-05-19 17:43 | NUR ---
Respiratory note: ASSESSMENT FOR PRN MED NEB TX. HR 74, SPO2 93% ON ROOM AIR, RR 16, BS DIMINISHED. PT RESTING COMFORTABLY IN BED AT THIS TIME. NO RESPIRATORY DISTRESS NOTED AT THIS TIME, WILL CONTINUE TO MONITOR.
[2019-05-19] MEDS: CARVEDILOL 3.125 MG TAB PO SCH (23:31)
[2019-05-20] VITALS (7 sets, daily range): BP systolic 135–176; BP diastolic 91–120
[2019-05-20] MEDS: ACETAMINOPHEN 500 MG TAB PO PRN ×3 (01:34→14:08)
[2019-05-20] MEDS: NICARDIPINE 25MG/250ML BAG KIT 250 ML IV SCH ×2 (02:00→06:22)
--- NOTE | 2019-05-20 03:25 | NUR ---
Telemetry admit from ER STEFANIE SPENCER admitted to Telemetry unit. Patient oriented to MACI REYES RN primary RN, unit, room, bed, and unit policies regarding patient care and visiting hours. Patient now on continuous telemetry monitoring, tele box #53 and telemetry reading on arrival to unit is sinus rhythm. Patient weighed by bed scale and encouraged to call if they need something. POC discussed, all questions and concerns addressed, patient verbalized understanding.
[2019-05-20] MEDS ORDERED: PNEUMOCOCCAL VACC POLYS 25 MCG/0.5 ML VIAL IM ONE (05:15)
[2019-05-20] MEDS ORDERED: INFLUENZA QUAD 2019-2020 0.5ml SYRG IM ONE (05:15)
--- NOTE | 2019-05-20 06:39 | NUR ---
PT. ASSESSED FOR PRN. MN. TX., PT. IS SLEEPING AT THIS TIME, WITH NO RESP. DISTRESS OR SOB NOTED. HR=66,RR=20,SP02=98% ON RA. BS. ARE DECREASED AND CLEAR. TX. NOT INDICATED AT THIS TIME. PT. INSTRUCTED TO CALL IF NEEDED.
--- NOTE | 2019-05-20 07:15 | NUR ---
Opening Note Received report on the patient. Awake lying in bed. Patient shows no signs of distress at this time. Discussed plan of care with the patient. Bed in lowest position, side rails up x2, and the call light is within reach. Will continue to monitor.
[2019-05-20 08:04] LABS: Lymphocytes # (auto) 1.4 uL; Neutrophils # (auto) 4.3 uL
[2019-05-20 08:07] LABS: Basophils # (auto) 0.3 uL; Basophils % (auto) 3.7 % (0.0-2.0); Eosinophils # (auto) 0.4 uL; Eosinophils % (auto) 5.2 % (0.0-7.0); Hematocrit 32.5 % (41.0-53.0); Hemoglobin 10.6 g/dL (13.5-17.5); Lymphocytes % (auto) 20.3 % (10.0-50.0); Mean Corpuscular Hemoglobin 22.8 pg (28.0-32.0); Mean Corpuscular Hgb Conc. 32.6 g/dL (32.0-36.0); Mean Corpuscular Volume 69.9 fL (80.0-100.0); Monocytes # (auto) 0.6 uL; Monocytes % (auto) 9.1 % (0.0-12.0); Neutrophils % (auto) 61.7 % (37.0-80.0); Nucleated Red Blood Cells % 0.2 %; Platelet Count (auto) 230 10^3/uL (140-450); Red Blood Cells 4.65 10^6/uL (4.5-5.90)
[2019-05-20 08:26] LABS: BUN/Creatinine Ratio 24.1; Calcium 7.9 mg/dL (8.5-10.1); Potassium 3.4 mmol/L (3.5-5.1)
[2019-05-20 08:33] LABS: INR 1.39 (0.9-1.15); Partial Thromboplastin Time 30.4 sec (23.64-32.05)
[2019-05-20] MEDS: FUROSEMIDE 40 MG/4 ML VIAL IV SCH (10:15)
[2019-05-20] MEDS: FAMOTIDINE 20 MG TAB PO SCH (10:16)
[2019-05-20] MEDS: CARVEDILOL 3.125 MG TAB PO SCH ×2 (10:16→21:08)
[2019-05-20] MEDS: BENAZEPRIL HCL 10 MG TAB PO SCH (10:17)
--- NOTE | 2019-05-20 11:15 | NUR ---
ROUNDS Dr Goldstein at bedside for rounds, no new orders at this time. Patient updated on plan of care, verbalized understanding.
[2019-05-20] MEDS: LABETALOL HCL 5 MG/ML ML 20ML VIAL IV PRN ×2 (16:44→18:51)
--- NOTE | 2019-05-20 18:29 | NUR ---
PT ASSESSED FOR PRN MED NEB TX. SPO2 99% ON RA, HR 69. PT DENIES ANY RESPIRATORY DISTRESS. NO TX INDICATED. PT IS AWARE TO HAVE RT PAGED IF TX NEEDED.
--- NOTE | 2019-05-20 19:30 | NUR ---
OPENING NOTE REPORT RECEIVED FROM DAY SHIFT RN PATIENT IS A/OX4 RESTING IN BED, NO S/S OF DISTRESS. PHYSICAL ASSESSMENT DONE-SEE INTERVENTIONS. POC DISCUSSED ALL QUESTIONS ANSWERED. ALL BELONGINGS WITHIN REACH. CALL LIGHT WITHIN REACH.
--- NOTE | 2019-05-20 19:31 | NUR ---
Care endorsed to ADRIANA Martinez, night nurse.
--- NOTE | 2019-05-20 22:00 | NUR ---
PAGED HOSPITALIST RE: ELEVATED BP AND PATIENT REQUESTING SLEEPING PILL WILL WAIT FOR CALL BACK
[2019-05-20] MEDS ORDERED: TEMAZEPAM 15 MG CAP PO PRN (22:15)
[2019-05-20] MEDS ORDERED: LISINOPRIL 20 MG TAB PO ONE (22:15)
[2019-05-20] MEDS ORDERED: amLODIPine BESYLATE 5 MG TAB PO ONE (22:15)
--- NOTE | 2019-05-20 22:18 | NUR ---
SPOKE WITH REGARDING PATIENTS ELEVATED BP OF 183/117 AFTER COREG GIVEN, AND ALSO PT REQUESTING SLEEPING PILL. NEW ORDERS RECEIVED FOR: LISINOPRIL 20MG PO ONCE NOW, THEN ADD DAILY, AMLODIPINE 10MG PO ONCE NOW THEN DAILY, AND RESTORIL 15MG PO QHS PRN ALL ORDERS READ BACK AND VERIFIED WITH MD. LABS DISCUSSED WITH MD WELL. PER , "RECHECK BP IN 2-3 HOURS" WILL CARRY OUT ORDERS
[2019-05-21] VITALS (7 sets, daily range): BP systolic 139–180; BP diastolic 80–128
--- NOTE | 2019-05-21 01:45 | NUR ---
BP RECHECK 154/116, HR 76
[2019-05-21] MEDS: LABETALOL HCL 5 MG/ML ML 20ML VIAL IV PRN (05:54)
--- NOTE | 2019-05-21 05:54 | NUR ---
LABETALOL GIVEN ORDERED BY BP 167/128, HR 68. WILL REASSESS IN ONE HOUR
--- NOTE | 2019-05-21 06:59 | NUR ---
BP RECHECK 177/125, HR 67
--- NOTE | 2019-05-21 07:00 | NUR ---
CLOSING PATIENT AWAKE, RESTING IN BED. NO S/S OF DISTRESS NOTED. BP STILL ELEVATED AFTER LABETALOL WAS GIVEN. WILL ENDORSE CARE TO AM SHIFT RN
--- NOTE | 2019-05-21 07:41 | NUR ---
Opening Note Assumed pt care from [facility] nurse. Pt is a/ox4 with no s/s of distress or SOB. Pt is currently sitting upright in bed with no complaints. Discussed POC with pt and the need to monitor BP; pt verbalized understanding. Safety measures maintained with call light within reach, bed in lowest position and side rails up. Will continue to monitor for changes q1hr and prn.
--- NOTE | 2019-05-21 07:55 | NUR ---
PT. ASSESSED FOR [place]. TX. , NO RESP. DISTRESS OR SOB NOTED. BS. ARE CLEAR, HR=74,RR=18,SP02=94% ON RA. PRN. TX. NOT INDICATED AT THIS TIME, PT. IS AWARE HE MAY CALL IF NEEDED. NO TX. GIVEN AT THIS TIME.
[2019-05-21] MEDS: FUROSEMIDE 40 MG/4 ML VIAL IV SCH (08:28)
[2019-05-21] MEDS: BENAZEPRIL HCL 10 MG TAB PO SCH (08:29)
[2019-05-21] MEDS: amLODIPine BESYLATE 5 MG TAB PO SCH (08:29)
[2019-05-21] MEDS: FAMOTIDINE 20 MG TAB PO SCH (08:30)
[2019-05-21] MEDS: CARVEDILOL 3.125 MG TAB PO SCH ×2 (08:30→21:14)
--- NOTE | 2019-05-21 08:35 | NUR ---
Elevated BP Noted Bp of 180/118 Hr 73. Provided daily BP medications. Will continue to monitor and reassess BP in 1hr. Addendum: 05/21/19 at 1033 by MIRTHA ANGLIN RN RN After reassessment, BP is 162/107 with a HR of 73. Will provide patient with PRN BP medications. Will continue to monitor. Addendum: 05/21/19 at 1134 by MIRTHA ANGLIN RN RN Reassessed BP, currently 146/105 HR 80. Will continue to monitor.
[2019-05-21] MEDS ORDERED: LISINOPRIL 20 MG TAB PO SCH (10:00)
[2019-05-21] MEDS: POTASSIUM CHL 20 Meq TABLET PO SCH (10:10)
[2019-05-21] MEDS: hydrALAZINE HCL 20 MG/ML VL IV PRN ×2 (10:28→22:36)
--- NOTE | 2019-05-21 12:00 | NUR ---
Patient Requests to go Outside Signed AMA smoking form. Pt instructed and aware of need to come back to unit within 30 minutes. Addendum: 05/21/19 at 1222 by MIRTHA ANGLIN RN RN Patient Back on unit
--- NOTE | 2019-05-21 12:10 | NUR ---
Received referral to see Pt due to living alone and difficulty obtaining food. Pt has cerebral palsy Pt states that he is living in a moblie home in [facility]. Pt stated his father past away a couple of months ago. He states that due to his father passing he cannot pay the rent and states he thinks he is going to be evicted soon. Pt earns $750.00 A month and it does not cover his expenses. Pt feels he will be evicted soon. Informed pt that its possible to rent a room, However, he states he has a Husky and will not leave him. He states he has no car as it broke down prior to his father dying. He does say his friends drive him around. Pt states his friends are looking for a car for him. He states he is able to get food as his friends take him to the store. The Pt again refuses to go to a facility or move from his residence without his dogs.
--- NOTE | 2019-05-21 13:12 | NUR ---
Spoke with US for Update on Radiology Consult for Possible Audrey Crocker stated she would call me back with additional information. Addendum: 05/21/19 at 1332 by MIRTHA ANGLIN RN RN US crocker called back and stated that she would inform the MD and will call back with additional orders and information to bring patient down.
[2019-05-21] MEDS: ACETAMINOPHEN 500 MG TAB PO PRN (13:18)
--- NOTE | 2019-05-21 14:39 | NUR ---
Patient Taken Down to US for Thoracentesis Pt off unit to US via wheelchair. Pt is a/ox4 with no s/s of distress or SOB. Addendum: 05/21/19 at 1549 by MIRTHA ANGLIN RN RN Patient back on unit from thoracentesis. 2.2 L taken off patient. Lung sounds are clear on right side, slightly diminished on Left side.
[2019-05-21] MEDS ORDERED: INFLUENZA QUAD 2019-2020 0.5ml SYRG IM ONE ×2 (16:21→16:45)
--- NOTE | 2019-05-21 17:18 | NUR ---
Influenza Vaccination Given Multiple orders on eMAR for influenza vaccination. Vaccination was given to R arm.
--- NOTE | 2019-05-21 19:30 | NUR ---
PT ASSESSED, MN TX NOT INDICATED AT THIS TIME. NO SOB NOTED, BS DIMINISHED BILATERALLY
--- NOTE | 2019-05-21 19:46 | NUR ---
OPENING NOTE PATIENT IS A/OX4 RESTING IN BED, WATCHING TV. NO S/S OF DISTRESS NOTED. PATIENT DENIES ANY PAIN OR SOB. DRESSING TO RIGHT POSTERIOR LOWER BACK INTACT. POC DISCUSSED WITH PATIENT AND ALL QUESTIONS ANSWERED. WILL MONITOR Q1H PRN THROUGHOUT SHIFT, CALL LIGHT WITHIN REACH.
[2019-05-22 05:00] VITALS: BP 145/103
--- NOTE | 2019-05-22 06:49 | NUR ---
CLOSING PATIENT RESTING COMFORTABLY IN BED. NO S/S OF DISTRESS. CALL LIGHT WITHIN REACH WILL ENDORSE CARE TO AM SHIFT RN
--- NOTE | 2019-05-22 07:30 | NUR ---
Opening Note Assumed pt care from [facility] nurse. Pt is currently sitting upright in bed eating breakfast with no complaints. Lung sounds to right are clear, slightly diminished on left side posteriorly upon exhalation. Discussed POC with pt; pt verbalized understanding. Safety measures maintained with call light within reach, bed in lowest position and side rail up. Will continue to monitor for changes q1hr and prn.
--- NOTE | 2019-05-22 08:36 | NUR ---
Respiratory note: ASSESSED PT FOR PRN TX PT WAS AWAKE AND ALERT, NO RESP DISTRESS NOTED. HR 72, RR 20, SPO2 94% ON ROOM AIR. NO INDICATION FOR TX AT THIS TIME. PT KNOWS TO HAVE RT PAGED IF TX IS NEEDED.
[2019-05-22 08:37] VITALS: BP 138/85
[2019-05-22] MEDS: POTASSIUM CHL 20 Meq TABLET PO SCH (08:51)
[2019-05-22] MEDS: amLODIPine BESYLATE 5 MG TAB PO SCH (08:51)
[2019-05-22] MEDS: FUROSEMIDE 40 MG/4 ML VIAL IV SCH (08:51)
[2019-05-22] MEDS: CARVEDILOL 3.125 MG TAB PO SCH (08:52)
[2019-05-22] MEDS: FAMOTIDINE 20 MG TAB PO SCH (08:52)
[2019-05-22] MEDS: BENAZEPRIL HCL 10 MG TAB PO SCH (08:53)
[2019-05-22] MEDS: ACETAMINOPHEN 500 MG TAB PO PRN (11:01)
--- NOTE | 2019-05-22 11:30 | NUR ---
Patient off Unit to Smoke Signed AMA to smoke is in chart. Patient is aware of risks and knows to be back on unit within 30 minutes. Addendum: 05/22/19 at 1147 by MIRTHA ANGLIN RN RN Patient back on unit
[2019-05-22 12:32] VITALS: BP 122/78
--- NOTE | 2019-05-22 12:57 | NUR ---
IV Discontinued IV to pt's R AC removed fully intact. Site is asymptomatic. Pressure applied for 3 minutes with gauze and then wrapped in coban. Pt instructed to keep dressing on for 30 minutes; pt verbalized understanding.
[2019-05-22 13:00] VITALS: BP 122/78
--- NOTE | 2019-05-22 13:10 | NUR ---
Patient D/C'ed From Unit Patient d/c'ed off unit via wheelchair accompanied by his friend. Pt is a/ox4 with no s/s of distress. Pt has all belongings, instructions, prescriptions, follow-up appointment information and education. IV was removed and telebox was removed and sent back to ICU monitor techs.
== END 2019-05-22 13:20 | disposition home or self-care (01) | DRG 199 ==
LOC: ER 13:12 → TELE 13:13 → TELE-WESTW 05-20 03:43
PROVIDERS: ADMIT Nurse Practitioner Acute Care; ATTEND Internal Medicine
PROC: 0W993ZZ Drainage of Right Pleural Cavity, Percutaneous Approach (ICD-10-PCS; principal; 2019-05-21)
DX: I16.9 Hypertensive crisis, unspecified (principal); I50.43 Acute on chronic combined systolic (congestive) and diastolic (congestive) heart failure; J91.8 Pleural effusion in other conditions classified elsewhere; I42.9 Cardiomyopathy, unspecified; I11.0 Hypertensive heart disease with heart failure; F17.210 Nicotine dependence, cigarettes, uncomplicated; I08.2 Rheumatic disorders of both aortic and tricuspid valves; J98.11 Atelectasis; I70.0 Atherosclerosis of aorta; F15.10 Other stimulant abuse, uncomplicated; J44.9 Chronic obstructive pulmonary disease, unspecified; Q66.92 Congenital deformity of feet, unspecified, left foot; Q66.91 Congenital deformity of feet, unspecified, right foot; I25.2 Old myocardial infarction; Z90.49 Acquired absence of other specified parts of digestive tract; Z82.49 Family history of ischemic heart disease and other diseases of the circulatory system; Z82.0 Family history of epilepsy and other diseases of the nervous system; Z80.42 Family history of malignant neoplasm of prostate; Z83.3 Family history of diabetes mellitus; Z79.899 Other long term (current) drug therapy; Z91.19 Patient's noncompliance with other medical treatment and regimen
CPT/HCPCS: 10022; 32555; 36415; 71045; 71046; 76604; 76942; 80048; 80053; 80307; 81001; 83735; 84443; 84484; 85025; 85610; 85730; 87081; 93005; G0378

== ENCOUNTER 2020-05-11 18:15 | Emergency (ER) | payer MEDICAID ==
[~2020-05-11] VITALS: Ht 165.1 cm; Wt 63.5 kg
[~2020-05-11 18:15] MED LIST changes: +ASPI81CH43 PO; +ATOR20TA50 PO
[2020-05-11 19:30] LABS: Eosinophils # (auto) 0.1 10 ^3/uL (0-0.8); Hemoglobin 16.2 g/dL (13.5-17.5); Lymphocytes # (auto) 1.7 10 ^3/uL (0.4-5.4); Mean Corpuscular Hemoglobin 26.8 pg (28.0-32.0); Monocytes # (auto) 0.8 10 ^3/uL (0-1.3); Neutrophils # (auto) 5.5 10 ^3/uL (1.6-8.6); White Blood Cell 8.2 10^3/uL (4.4-10.8)
[2020-05-11 19:32] LABS: Basophils # (auto) 0 10 ^3/uL (0-0.2); Basophils % (auto) 0.5 % (0.0-2.0); Eosinophils % (auto) 1.6 % (0.0-7.0); Hematocrit 48.6 % (41.0-53.0); Lymphocytes % (auto) 20.2 % (10.0-50.0); Mean Corpuscular Hgb Conc. 33.3 g/dL (32.0-36.0); Mean Corpuscular Volume 80.5 fL (80.0-100.0); Monocytes % (auto) 10.2 % (0.0-12.0); Neutrophils % (auto) 67.5 % (37.0-80.0); Nucleated Red Blood Cells % 0.2 %; Platelet Count (auto) 154 10^3/uL (140-450); Red Blood Cells 6.04 10^6/uL (4.5-5.90); Red Cell Distribution Width 16.2 % (11.8-14.3)
[2020-05-11 19:51] LABS: Albumin 3.4 g/dL (3.4-5.0); Calcium 8.5 mg/dL (8.5-10.1); Potassium 3.9 mmol/L (3.5-5.1)
[2020-05-11 19:53] LABS: BUN/Creatinine Ratio 35.8
[2020-05-11 20:03] LABS: Bilirubin, Total 0.2 mg/dL (0.2-1.0); Total Protein 7.1 g/dL (6.4-8.2)
[2020-05-11 21:21] VITALS: BP 130/100
== END 2020-05-11 22:12 | disposition home or self-care (01) ==
LOC: ER 18:15
DX: R06.00 Dyspnea, unspecified (principal); F15.10 Other stimulant abuse, uncomplicated; I11.0 Hypertensive heart disease with heart failure; I50.9 Heart failure, unspecified; J44.9 Chronic obstructive pulmonary disease, unspecified; F17.210 Nicotine dependence, cigarettes, uncomplicated; F12.10 Cannabis abuse, uncomplicated; E78.5 Hyperlipidemia, unspecified
CPT/HCPCS: 36415; 71046; 80053; 83880; 84484; 85025; 93005; 99285; J7030

== ENCOUNTER 2020-07-27 22:25 | Inpatient (IN) | payer MEDICAID ==
[~2020-07-27] VITALS: Ht 165.1 cm; Wt 81.6 kg
[2020-07-27] MEDS ORDERED: cloNIDine HCL 0.1 MG TAB PO ONE (23:00)
[2020-07-27 23:35] LABS: Basophils # (auto) 0 10 ^3/uL (0-0.2); Eosinophils # (auto) 0.2 10 ^3/uL (0-0.8); Lymphocytes # (auto) 2.1 10 ^3/uL (0.4-5.4); Mean Corpuscular Hgb Conc. 33.6 g/dL (32.0-36.0); Monocytes # (auto) 0.9 10 ^3/uL (0-1.3); Nucleated Red Blood Cells % 0.1 %
[2020-07-27 23:38] LABS: Basophils % (auto) 0.3 % (0.0-2.0); Eosinophils % (auto) 2.1 % (0.0-7.0); Hematocrit 34.6 % (41.0-53.0); Hemoglobin 11.6 g/dL (13.5-17.5); Lymphocytes % (auto) 24.2 % (10.0-50.0); Mean Corpuscular Hemoglobin 26.1 pg (28.0-32.0); Mean Corpuscular Volume 77.7 fL (80.0-100.0); Monocytes % (auto) 10.6 % (0.0-12.0); Neutrophils # (auto) 5.3 10 ^3/uL (1.6-8.6); Neutrophils % (auto) 62.8 % (37.0-80.0); Platelet Count (auto) 202 10^3/uL (140-450); Red Blood Cells 4.46 10^6/uL (4.5-5.90); Red Cell Distribution Width 15.6 % (11.8-14.3); White Blood Cell 8.5 10^3/uL (4.4-10.8)
[2020-07-28] LABS: Potassium 4.1 mmol/L (3.5-5.1)
[2020-07-28 00:01] LABS: INR 1.02 (0.9-1.15); Partial Thromboplastin Time 25.4 sec (23.0-31.2)
[2020-07-28 00:10] LABS: Albumin 2.9 g/dL (3.4-5.0); BUN/Creatinine Ratio 58.8; Bilirubin, Total 0.3 mg/dL (0.2-1.0); Total Protein 6.2 g/dL (6.4-8.2)
[2020-07-28] MEDS ORDERED: ASPirin 81 mg TAB PO ONE (01:00)
[2020-07-28] MEDS ORDERED: MORPHINE SULF INJ 2 MG/ML SYRINGE 1ML IV PRN (01:30)
[2020-07-28] MEDS ORDERED: NITROGLYCERIN 0.4 MG SL TAB SL PRN (01:30)
[2020-07-28] MEDS ORDERED: SODIUM CHLORIDE 0.9% 1,000 ML IV ONE (01:30)
[2020-07-28 08:08] LABS: Basophils # (auto) 0.2 10 ^3/uL (0-0.2); Basophils % (auto) 2.7 % (0.0-2.0); Eosinophils # (auto) 0.3 10 ^3/uL (0-0.8); Eosinophils % (auto) 3.5 % (0.0-7.0); Hematocrit 32.4 % (41.0-53.0); Hemoglobin 11.4 g/dL (13.5-17.5); Lymphocytes # (auto) 2.2 10 ^3/uL (0.4-5.4); Lymphocytes % (auto) 27.9 % (10.0-50.0); Mean Corpuscular Hemoglobin 27.4 pg (28.0-32.0); Mean Corpuscular Hgb Conc. 35.3 g/dL (32.0-36.0); Mean Corpuscular Volume 77.6 fL (80.0-100.0); Monocytes # (auto) 0.7 10 ^3/uL (0-1.3); Monocytes % (auto) 9.4 % (0.0-12.0); Neutrophils # (auto) 4.5 10 ^3/uL (1.6-8.6); Neutrophils % (auto) 56.5 % (37.0-80.0); Platelet Count (auto) 198 10^3/uL (140-450); Red Blood Cells 4.17 10^6/uL (4.5-5.90); Red Cell Distribution Width 15.6 % (11.8-14.3)
[2020-07-28 08:23] LABS: Potassium 3.5 mmol/L (3.5-5.1)
[2020-07-28 08:38] LABS: BUN/Creatinine Ratio 49.2; Calcium 7.7 mg/dL (8.5-10.1)
[2020-07-28] MEDS ORDERED: METOPROLOL TARTRATE 25 MG TAB PO SCH (10:00)
[2020-07-28] MEDS ORDERED: amLODIPine BESYLATE 5 MG TAB PO SCH (10:00)
[2020-07-28] MEDS ORDERED: ENOXAPARIN SOD 40 MG/0.4 ML SYRINGE SC SCH (10:00)
[2020-07-28] MEDS ORDERED: ATORVASTATIN 20 MG TAB PO SCH (10:00)
[2020-07-28] MEDS ORDERED: ASPirin 81 mg TAB PO SCH (10:00)
[2020-07-28 11:03] LABS: Alcohol, Urine < 3.0 mg/dL (0-10); Amphetamine Screen, Urine POSITIVE (NEGATIVE); Barbiturate Scree,Urine NEGATIVE (NEGATIVE); Benzodiazephine Screen, Urine NEGATIVE (NEGATIVE); Cannabinoid Screen, Urine NEGATIVE (NEGATIVE); Cocaine Screen, Urine NEGATIVE (NEGATIVE); Opiate Scree,Urine NEGATIVE (NEGATIVE); Phencyclidine Screen, Urine NEGATIVE (NEGATIVE)
[2020-07-28 15:21] VITALS: BP 155/99
== END 2020-07-28 16:10 | disposition left against medical advice (07) | DRG 199 ==
LOC: ER 22:25 → TELE 22:26
PROVIDERS: ADMIT Hospitalist; ATTEND Hospitalist
DX: I16.0 Hypertensive urgency (principal); E78.5 Hyperlipidemia, unspecified; F15.20 Other stimulant dependence, uncomplicated; I50.9 Heart failure, unspecified; J44.9 Chronic obstructive pulmonary disease, unspecified; I11.0 Hypertensive heart disease with heart failure; Z20.822 Contact with and (suspected) exposure to COVID-19; F17.210 Nicotine dependence, cigarettes, uncomplicated; Z88.5 Allergy status to narcotic agent; Z82.0 Family history of epilepsy and other diseases of the nervous system; Z83.3 Family history of diabetes mellitus; Z90.49 Acquired absence of other specified parts of digestive tract; Z53.29 Procedure and treatment not carried out because of patient's decision for other reasons; R04.0 Epistaxis
CPT/HCPCS: 36415; 70450; 71045; 80048; 80053; 80061; 80307; 83880; 84443; 84484; 84550; 85025; 85610; 85730; 87426; 93005; 93306; 96360; 96372; G0378

== ENCOUNTER 2020-08-28 05:26 | Inpatient (IN) | payer MEDICAID ==
[~2020-08-28] VITALS: Ht 165.1 cm; Wt 78.9 kg
[~2020-08-28 05:26] MED LIST changes: +AMLO-496 PO; -AMLO10TA13 PO
[2020-08-28] MEDS ORDERED: ASPirin 81 mg TAB PO ONE (07:00)
[2020-08-28 07:23] LABS: Mean Corpuscular Hemoglobin 22.7 pg (28.0-32.0); Monocytes # (auto) 0.6 10 ^3/uL (0-1.3); Red Cell Distribution Width 17.2 % (11.8-14.3)
[2020-08-28 07:26] LABS: Basophils # (auto) 0.1 10 ^3/uL (0-0.2); Basophils % (auto) 1.3 % (0.0-2.0); Eosinophils # (auto) 0.1 10 ^3/uL (0-0.8); Eosinophils % (auto) 0.7 % (0.0-7.0); Hemoglobin 11.2 g/dL (13.5-17.5); Lymphocytes # (auto) 1.4 10 ^3/uL (0.4-5.4); Lymphocytes % (auto) 14.9 % (10.0-50.0); Mean Corpuscular Hgb Conc. 32.1 g/dL (32.0-36.0); Mean Corpuscular Volume 70.8 fL (80.0-100.0); Monocytes % (auto) 6.9 % (0.0-12.0); Neutrophils % (auto) 76.2 % (37.0-80.0); Nucleated Red Blood Cells % 0.1 %; Platelet Count (auto) 273 10^3/uL (140-450); Red Blood Cells 4.94 10^6/uL (4.5-5.90); White Blood Cell 9.2 10^3/uL (4.4-10.8)
[2020-08-28 07:37] LABS: INR 1.07 (0.9-1.15); Partial Thromboplastin Time 26.7 sec (23.0-31.2)
[2020-08-28 07:40] LABS: Albumin 3.5 g/dL (3.4-5.0); Calcium 8.5 mg/dL (8.5-10.1); Magnesium 2.2 mg/dL (1.6-2.6)
[2020-08-28 07:45] LABS: BUN/Creatinine Ratio 21.6
[2020-08-28] MEDS ORDERED: MORPHINE SULF INJ 2 MG/ML SYRINGE 1ML IV ONE (08:45)
[2020-08-28] MEDS ORDERED: ONDANSETRON HCL 4 MG/2 ML VIAL IV ONE (08:45)
[2020-08-28] MEDS ORDERED: ENOXAPARIN SOD 80 MG/0.8ML SYRINGE SC ONE (08:45)
[2020-08-28] MEDS ORDERED: POTASSIUM CHL 20 Meq TABLET PO ONE (09:45)
[2020-08-28] MEDS: SACUBITRIL-VALSARTAN 24mg/26mg TAB PO SCH ×2 (10:00→21:54)
[2020-08-28] MEDS ORDERED: ASPirin 81 mg TAB PO SCH (10:00)
[2020-08-28] MEDS: CARVEDILOL 3.125 MG TAB PO SCH ×3 (10:00→15:23)
[2020-08-28] MEDS ORDERED: FUROSEMIDE 20 MG/2 ML VIAL IV SCH (10:00)
[2020-08-28] MEDS: NICOTINE 14 MG/24HR TOPICAL PATCH TD SCH (10:00)
[2020-08-28] MEDS ORDERED: ONDANSETRON HCL 4 MG/2 ML VIAL IV PRN (10:45)
[2020-08-28] MEDS ORDERED: MORPHINE SULF INJ 2 MG/ML SYRINGE 1ML IV PRN (10:45)
[2020-08-28] MEDS: FUROSEMIDE 40 MG/4 ML VIAL IV SCH (11:02)
[2020-08-28] MEDS ORDERED: HEPARIN SODIUM (PORCINE) 5000 UNITS/ML 1ML VIAL IV ONE (12:30)
[2020-08-28] MEDS ORDERED: CLOPIDOGREL 300 MG TAB PO ONE (12:45)
[2020-08-28] MEDS: HEPARIN DRIP/D5W 100UNITS/ML 250 ML IV SCH (14:00)
[2020-08-28 14:10] LABS: Eosinophils # (auto) 0.1 10 ^3/uL (0-0.8); Hematocrit 35.4 % (41.0-53.0); Hemoglobin 11.3 g/dL (13.5-17.5); Lymphocytes # (auto) 2.4 10 ^3/uL (0.4-5.4); Mean Corpuscular Volume 71.4 fL (80.0-100.0); Monocytes # (auto) 0.8 10 ^3/uL (0-1.3); Neutrophils # (auto) 4.8 10 ^3/uL (1.6-8.6); Neutrophils % (auto) 58.1 % (37.0-80.0); Nucleated Red Blood Cells % 0.1 %; Platelet Count (auto) 276 10^3/uL (140-450); White Blood Cell 8.3 10^3/uL (4.4-10.8)
[2020-08-28 14:12] LABS: Basophils # (auto) 0.2 10 ^3/uL (0-0.2); Basophils % (auto) 2.4 % (0.0-2.0); Lymphocytes % (auto) 28.9 % (10.0-50.0); Mean Corpuscular Hemoglobin 22.9 pg (28.0-32.0); Monocytes % (auto) 9.6 % (0.0-12.0); Red Blood Cells 4.95 10^6/uL (4.5-5.90); Red Cell Distribution Width 17.4 % (11.8-14.3)
[2020-08-28 14:29] LABS: INR 1.09 (0.9-1.15); Partial Thromboplastin Time 29.2 sec (23.0-31.2)
[2020-08-28 15:12] LABS: Alcohol, Urine < 3.0 mg/dL (0-10); Amphetamine Screen, Urine POSITIVE (NEGATIVE); Barbiturate Scree,Urine NEGATIVE (NEGATIVE); Benzodiazephine Screen, Urine NEGATIVE (NEGATIVE); Cannabinoid Screen, Urine NEGATIVE (NEGATIVE); Cocaine Screen, Urine NEGATIVE (NEGATIVE); Opiate Scree,Urine NEGATIVE (NEGATIVE); Phencyclidine Screen, Urine NEGATIVE (NEGATIVE)
[2020-08-28] MEDS: ATORVASTATIN 20 MG TAB PO SCH (21:54)
[2020-08-28] MEDS: METOPROLOL TARTRATE 25 MG TAB PO SCH (21:54)
[2020-08-28] MEDS ORDERED: ENOXAPARIN SOD 80 MG/0.8ML SYRINGE SC SCH (22:00)
[2020-08-28 22:40] LABS: INR 1.12 (0.9-1.15)
[2020-08-29 07:36] LABS: Eosinophils # (auto) 0.3 10 ^3/uL (0-0.8); Monocytes # (auto) 0.6 10 ^3/uL (0-1.3); Neutrophils # (auto) 3.1 10 ^3/uL (1.6-8.6)
[2020-08-29 07:38] LABS: Basophils # (auto) 0.1 10 ^3/uL (0-0.2); Basophils % (auto) 1.9 % (0.0-2.0); Eosinophils % (auto) 4.5 % (0.0-7.0); Hematocrit 34.4 % (41.0-53.0); Mean Corpuscular Hemoglobin 22.5 pg (28.0-32.0); Mean Corpuscular Hgb Conc. 31.8 g/dL (32.0-36.0); Mean Corpuscular Volume 70.8 fL (80.0-100.0); Monocytes % (auto) 9.4 % (0.0-12.0); Neutrophils % (auto) 51.2 % (37.0-80.0); Nucleated Red Blood Cells % 0.1 %; Platelet Count (auto) 238 10^3/uL (140-450); Red Blood Cells 4.87 10^6/uL (4.5-5.90); Red Cell Distribution Width 17.2 % (11.8-14.3)
[2020-08-29 07:56] LABS: INR 1.08 (0.9-1.15); Partial Thromboplastin Time 40.1 sec (23.0-31.2)
[2020-08-29 08:02] LABS: Potassium 3.7 mmol/L (3.5-5.1)
[2020-08-29 08:21] LABS: BUN/Creatinine Ratio 24.7; Calcium 8.3 mg/dL (8.5-10.1); Magnesium 2.4 mg/dL (1.6-2.6)
[2020-08-29] MEDS: NICOTINE 14 MG/24HR TOPICAL PATCH TD SCH (10:00)
[2020-08-29] MEDS: CLOPIDOGREL BISULFATE 75 MG TAB PO SCH (10:00)
[2020-08-29] MEDS: ASPirin 81 mg TAB PO SCH (10:00)
[2020-08-29] MEDS: PANTOPRAZOLE 40 MG TAB PO SCH (10:00)
[2020-08-29] MEDS: SACUBITRIL-VALSARTAN 24mg/26mg TAB PO SCH ×2 (10:00→22:49)
[2020-08-29] MEDS: METOPROLOL TARTRATE 25 MG TAB PO SCH ×2 (10:00→22:50)
[2020-08-29] MEDS: FUROSEMIDE 40 MG/4 ML VIAL IV SCH (10:00)
[2020-08-29] MEDS: HEPARIN DRIP/D5W 100UNITS/ML 250 ML IV SCH ×2 (12:30→22:52)
[2020-08-29 14:11] LABS: INR 1.08 (0.9-1.15)
[2020-08-29 18:28] VITALS: BP 136/80
[2020-08-29 20:00] VITALS: BP 142/91
[2020-08-29 20:03] LABS: INR 1.07 (0.9-1.15); Partial Thromboplastin Time 51.2 sec (23.0-31.2)
[2020-08-29 22:00] VITALS: BP_SYST 160; BP_DIAS 103; BP_DIAS 106
[2020-08-29] MEDS: ATORVASTATIN 20 MG TAB PO SCH (22:49)
[2020-08-30 02:15] LABS: Eosinophils # (auto) 0.2 10 ^3/uL (0-0.8); Hemoglobin 10.7 g/dL (13.5-17.5); Monocytes # (auto) 0.7 10 ^3/uL (0-1.3)
[2020-08-30 02:17] LABS: Basophils # (auto) 0.3 10 ^3/uL (0-0.2); Basophils % (auto) 3.4 % (0.0-2.0); Eosinophils % (auto) 2.6 % (0.0-7.0); Hematocrit 33.5 % (41.0-53.0); Lymphocytes # (auto) 2.3 10 ^3/uL (0.4-5.4); Lymphocytes % (auto) 30.3 % (10.0-50.0); Mean Corpuscular Hemoglobin 22.4 pg (28.0-32.0); Mean Corpuscular Hgb Conc. 31.8 g/dL (32.0-36.0); Mean Corpuscular Volume 70.5 fL (80.0-100.0); Monocytes % (auto) 9.8 % (0.0-12.0); Neutrophils % (auto) 53.9 % (37.0-80.0); Nucleated Red Blood Cells % 0.1 %; Platelet Count (auto) 233 10^3/uL (140-450); Red Blood Cells 4.76 10^6/uL (4.5-5.90); Red Cell Distribution Width 17.3 % (11.8-14.3); White Blood Cell 7.5 10^3/uL (4.4-10.8)
[2020-08-30 02:31] LABS: INR 1.06 (0.9-1.15); Partial Thromboplastin Time 59.7 sec (23.0-31.2)
[2020-08-30 05:20] VITALS: BP 131/79
[2020-08-30 08:00] VITALS: BP 139/92
[2020-08-30] MEDS: HEPARIN DRIP/D5W 100UNITS/ML 250 ML IV SCH (09:16)
[2020-08-30 09:53] LABS: INR 1.05 (0.9-1.15); Partial Thromboplastin Time 53.2 sec (23.0-31.2)
[2020-08-30] MEDS: METOPROLOL TARTRATE 25 MG TAB PO SCH ×2 (10:00→21:41)
[2020-08-30] MEDS: ASPirin 81 mg TAB PO SCH (10:00)
[2020-08-30] MEDS: SACUBITRIL-VALSARTAN 24mg/26mg TAB PO SCH ×2 (10:00→21:40)
[2020-08-30] MEDS: CLOPIDOGREL BISULFATE 75 MG TAB PO SCH (10:00)
[2020-08-30] MEDS: FUROSEMIDE 40 MG/4 ML VIAL IV SCH (10:00)
[2020-08-30] MEDS: NICOTINE 14 MG/24HR TOPICAL PATCH TD SCH (10:00)
[2020-08-30] MEDS: PANTOPRAZOLE 40 MG TAB PO SCH (10:00)
[2020-08-30] MEDS ORDERED: VERAPAMIL 2.5MG/ML INJ 2ML VIAL IV ONE (11:25)
[2020-08-30] MEDS ORDERED: MIDAZOLAM HCL 1MG/1ML-2 ML VIAL ONE (11:25)
[2020-08-30] MEDS ORDERED: HEPARIN SODIUM (PORCINE) 5000 UNITS/ML 1ML VIAL ONE (11:25)
[2020-08-30] MEDS ORDERED: fentaNYL CITRATE 100 MCG/2 ML VL ONE (11:25)
[2020-08-30] MEDS ORDERED: LIDOCAINE 2%HCL (LOCAL ANESTH.) INJ 20ML MDV ONE (11:26)
[2020-08-30] MEDS ORDERED: IOHEXOL 350 MG/ML 100ML IJ ONE (11:26)
[2020-08-30 16:00] VITALS: BP 150/99
[2020-08-30] MEDS: ATORVASTATIN 20 MG TAB PO SCH (21:40)
[2020-08-30 22:00] VITALS: BP 146/96
[2020-08-31 05:00] VITALS: BP 150/104
[2020-08-31 07:17] LABS: INR 1.06 (0.9-1.15)
[2020-08-31 09:00] VITALS: BP 159/85
[2020-08-31] MEDS: ASPirin 81 mg TAB PO SCH (09:34)
[2020-08-31] MEDS: FUROSEMIDE 40 MG/4 ML VIAL IV SCH (09:34)
[2020-08-31] MEDS: PANTOPRAZOLE 40 MG TAB PO SCH (09:34)
[2020-08-31] MEDS: CLOPIDOGREL BISULFATE 75 MG TAB PO SCH (09:34)
[2020-08-31] MEDS: SACUBITRIL-VALSARTAN 24mg/26mg TAB PO SCH (09:35)
[2020-08-31] MEDS: METOPROLOL TARTRATE 25 MG TAB PO SCH (09:35)
[2020-08-31] MEDS: NICOTINE 14 MG/24HR TOPICAL PATCH TD SCH (09:35)
[2020-08-31 13:00] VITALS: BP 151/106
[2020-08-31 16:54] VITALS: BP 146/94
== END 2020-08-31 17:36 | disposition left against medical advice (07) | DRG 192 ==
LOC: ER 05:26 → TELE 05:27 → TELE-EAST 08-29 17:36
PROVIDERS: ADMIT Internal Medicine; ATTEND Internal Medicine
PROC: 4A023N7 Measurement of Cardiac Sampling and Pressure, Left Heart, Percutaneous Approach (ICD-10-PCS; principal; 2020-08-30)
PROC: B2111ZZ Fluoroscopy of Multiple Coronary Arteries using Low Osmolar Contrast (ICD-10-PCS; 2020-08-30)
PROC: B2151ZZ Fluoroscopy of Left Heart using Low Osmolar Contrast (ICD-10-PCS; 2020-08-30)
DX: I11.0 Hypertensive heart disease with heart failure (principal); I21.4 Non-ST elevation (NSTEMI) myocardial infarction; I42.7 Cardiomyopathy due to drug and external agent; I50.23 Acute on chronic systolic (congestive) heart failure; Z20.822 Contact with and (suspected) exposure to COVID-19; R00.0 Tachycardia, unspecified; E78.5 Hyperlipidemia, unspecified; F17.210 Nicotine dependence, cigarettes, uncomplicated; T50.995A Adverse effect of other drugs, medicaments and biological substances, initial encounter; Z53.29 Procedure and treatment not carried out because of patient's decision for other reasons; F15.10 Other stimulant abuse, uncomplicated; J44.9 Chronic obstructive pulmonary disease, unspecified; Z80.42 Family history of malignant neoplasm of prostate; Z82.0 Family history of epilepsy and other diseases of the nervous system; Z82.49 Family history of ischemic heart disease and other diseases of the circulatory system; I25.2 Old myocardial infarction; Z83.3 Family history of diabetes mellitus; Z91.19 Patient's noncompliance with other medical treatment and regimen; Y92.89 Other specified places as the place of occurrence of the external cause; Z88.5 Allergy status to narcotic agent
CPT/HCPCS: 36415; 71045; 80048; 80053; 80307; 83735; 83880; 84443; 84484; 85025; 85610; 85730; 86850; 86900; 86901; 87426; 93005; 93458; 96372; 96374; 96375; 99152; C1887; G0378; J2250; J2405

== ENCOUNTER 2020-12-17 00:46 | Inpatient (IN) | payer MEDICAID ==
[~2020-12-17] VITALS: Ht 165.1 cm; Wt 72.3 kg
[~2020-12-17 00:46] MED LIST changes: -ASPI81CH43 PO; -CARV6.2551 PO; +LOSA-69 PO; +METO-6 PO; -SACU1TAB PO
[2020-12-17 01:29] LABS: Eosinophils # (auto) 0.3 10 ^3/uL (0-0.8); Eosinophils % (auto) 2.5 % (0.0-7.0); Red Blood Cells 5.86 10^6/uL (4.5-5.90)
[2020-12-17 01:31] LABS: Basophils # (auto) 0.3 10 ^3/uL (0-0.2); Basophils % (auto) 2.4 % (0.0-2.0); Hematocrit 36.2 % (41.0-53.0); Hemoglobin 11.1 g/dL (13.5-17.5); Lymphocytes # (auto) 1.9 10 ^3/uL (0.4-5.4); Lymphocytes % (auto) 18.5 % (10.0-50.0); Mean Corpuscular Hemoglobin 18.9 pg (28.0-32.0); Mean Corpuscular Hgb Conc. 30.6 g/dL (32.0-36.0); Mean Corpuscular Volume 61.8 fL (80.0-100.0); Monocytes # (auto) 1.1 10 ^3/uL (0-1.3); Monocytes % (auto) 10.8 % (0.0-12.0); Neutrophils # (auto) 6.9 10 ^3/uL (1.6-8.6); Neutrophils % (auto) 65.8 % (37.0-80.0); Platelet Count (auto) 256 10^3/uL (140-450); White Blood Cell 10.5 10^3/uL (4.4-10.8)
[2020-12-17 01:38] LABS: Red Cell Distribution Width 21.9 % (11.8-14.3)
[2020-12-17 01:46] LABS: Albumin 3.7 g/dL (3.4-5.0); BUN/Creatinine Ratio 33.6; Calcium 8.2 mg/dL (8.5-10.1); Potassium 3.9 mmol/L (3.5-5.1)
[2020-12-17 01:51] LABS: Bilirubin, Total 0.7 mg/dL (0.2-1.0); Total Protein 7.1 g/dL (6.4-8.2)
[2020-12-17] MEDS ORDERED: CLINDAMYCIN 600MG IV 50 ML IV ONE (05:15)
[2020-12-17] MEDS ORDERED: FUROSEMIDE 40 MG/4 ML VIAL IV ONE (05:15)
[2020-12-17 06:33] LABS: Urine WBC None Seen /hpf (0 - 3)
[2020-12-17 06:45] LABS: Urine Bacteria NONE SEEN /hpf (None Seen); Urine Blood Negative /uL (Negative); Urine Specific Gravity 1.016 (1.001-1.035)
[2020-12-17] MEDS ORDERED: hydrALAZINE HCL 20 MG/ML VL IV PRN (06:45)
[2020-12-17] MEDS ORDERED: NITROGLYCERIN 0.4 MG SL TAB SL PRN (06:45)
[2020-12-17] MEDS ORDERED: ONDANSETRON HCL 4 MG/2 ML VIAL IV PRN (06:45)
[2020-12-17 06:58] LABS: Alcohol, Urine < 3.0 mg/dL (0-10); Amphetamine Screen, Urine POSITIVE (NEGATIVE); Barbiturate Scree,Urine NEGATIVE (NEGATIVE); Benzodiazephine Screen, Urine NEGATIVE (NEGATIVE); Cannabinoid Screen, Urine NEGATIVE (NEGATIVE); Cocaine Screen, Urine NEGATIVE (NEGATIVE); Opiate Scree,Urine NEGATIVE (NEGATIVE); Phencyclidine Screen, Urine NEGATIVE (NEGATIVE)
[2020-12-17] MEDS: FUROSEMIDE 40 MG/4 ML VIAL IV SCH ×2 (09:55→21:56)
[2020-12-17] MEDS: ENOXAPARIN SOD 40 MG/0.4 ML SYRINGE SC SCH (09:56)
[2020-12-17] MEDS: ATORVASTATIN 20 MG TAB PO SCH (09:56)
[2020-12-17] MEDS: levoFLOXacin 500MG 100 ML IV SCH (09:57)
[2020-12-17] MEDS: ASPirin-EC 81 mg tab PO SCH (10:04)
[2020-12-17 11:36] VITALS: BP 131/91
[2020-12-17 13:00] VITALS: BP 139/91
[2020-12-17] MEDS: CLINDAMYCIN 900MG IV 50 ML IV SCH ×2 (14:32→21:56)
[2020-12-17 17:00] VITALS: BP 136/98
[2020-12-17 22:00] VITALS: BP 149/87
[2020-12-18 05:08] VITALS: BP 143/95
[2020-12-18] MEDS: CLINDAMYCIN 900MG IV 50 ML IV SCH ×3 (05:17→21:53)
[2020-12-18 05:53] LABS: Basophils # (auto) 0.2 10 ^3/uL (0-0.2); Hematocrit 33.3 % (41.0-53.0); Lymphocytes # (auto) 1.9 10 ^3/uL (0.4-5.4); Lymphocytes % (auto) 26.6 % (10.0-50.0); Mean Corpuscular Hemoglobin 18.8 pg (28.0-32.0); Monocytes # (auto) 0.8 10 ^3/uL (0-1.3)
[2020-12-18 05:55] LABS: Basophils % (auto) 2.5 % (0.0-2.0); Eosinophils # (auto) 0.4 10 ^3/uL (0-0.8); Eosinophils % (auto) 5.7 % (0.0-7.0); Hemoglobin 10.3 g/dL (13.5-17.5); Mean Corpuscular Hgb Conc. 30.9 g/dL (32.0-36.0); Mean Corpuscular Volume 60.9 fL (80.0-100.0); Monocytes % (auto) 11.6 % (0.0-12.0); Neutrophils # (auto) 3.9 10 ^3/uL (1.6-8.6); Neutrophils % (auto) 53.6 % (37.0-80.0); Nucleated Red Blood Cells % 0.1 %; Platelet Count (auto) 232 10^3/uL (140-450); Red Blood Cells 5.46 10^6/uL (4.5-5.90); White Blood Cell 7.2 10^3/uL (4.4-10.8)
[2020-12-18 05:57] LABS: Red Cell Distribution Width 21.2 % (11.8-14.3)
[2020-12-18 06:08] LABS: BUN/Creatinine Ratio 30.3; Calcium 8.3 mg/dL (8.5-10.1); Potassium 3.4 mmol/L (3.5-5.1)
[2020-12-18 09:00] VITALS: BP 138/105
[2020-12-18] MEDS: FUROSEMIDE 40 MG/4 ML VIAL IV SCH ×2 (11:04→21:53)
[2020-12-18] MEDS: levoFLOXacin 500MG 100 ML IV SCH (11:04)
[2020-12-18] MEDS: ASPirin-EC 81 mg tab PO SCH (11:05)
[2020-12-18] MEDS: ENOXAPARIN SOD 40 MG/0.4 ML SYRINGE SC SCH (11:05)
[2020-12-18] MEDS: ATORVASTATIN 20 MG TAB PO SCH (11:05)
[2020-12-18 12:50] VITALS: BP 145/100
[2020-12-18 17:14] VITALS: BP 128/87
[2020-12-18 21:34] VITALS: BP 167/119
[2020-12-19] MEDS: CLINDAMYCIN 900MG IV 50 ML IV SCH ×2 (05:33→14:04)
[2020-12-19 05:49] VITALS: BP 165/117
[2020-12-19 08:49] VITALS: BP 152/94
[2020-12-19] MEDS: ASPirin-EC 81 mg tab PO SCH (09:17)
[2020-12-19] MEDS: ENOXAPARIN SOD 40 MG/0.4 ML SYRINGE SC SCH (09:17)
[2020-12-19] MEDS: levoFLOXacin 500MG 100 ML IV SCH (09:17)
[2020-12-19] MEDS: ATORVASTATIN 20 MG TAB PO SCH (09:17)
[2020-12-19] MEDS ORDERED: ASPI-543 PO (09:19)
[2020-12-19] MEDS ORDERED: CLOT1CRE56 TOP (09:19)
[2020-12-19] MEDS ORDERED: CLIN300C8 PO (09:24)
[2020-12-19] MEDS ORDERED: CLOTRIMAZOLE 1 % CREAM 15GM TOP SCH (10:00)
[2020-12-19] MEDS ORDERED: METOPROLOL SUCCINATE XL 50 MG TAB PO SCH (10:00)
[2020-12-19] MEDS ORDERED: PATIENTS OWN MEDICATION (Potassium Chloride (Potassium Chloride Cr) 10 MEQ) PO SCH (10:00)
[2020-12-19] MEDS ORDERED: POTASSIUM CHL 10 Meq TABLET PO SCH (10:00)
[2020-12-19] MEDS ORDERED: FUROSEMIDE 40 MG TAB PO SCH (10:00)
[2020-12-19] MEDS ORDERED: PATIENTS OWN MEDICATION (Amlodipine Besylate 10 MG) PO SCH (10:00)
[2020-12-19] MEDS ORDERED: amLODIPine BESYLATE 5 MG TAB PO SCH (10:00)
[2020-12-19 10:24] LABS: Eosinophils # (auto) 0.2 10 ^3/uL (0-0.8); Nucleated Red Blood Cells % 0.1 %; White Blood Cell 6.3 10^3/uL (4.4-10.8)
[2020-12-19 10:26] LABS: Basophils # (auto) 0.2 10 ^3/uL (0-0.2); Basophils % (auto) 3.2 % (0.0-2.0); Eosinophils % (auto) 3.6 % (0.0-7.0); Hematocrit 36.7 % (41.0-53.0); Hemoglobin 11.1 g/dL (13.5-17.5); Lymphocytes # (auto) 1.3 10 ^3/uL (0.4-5.4); Lymphocytes % (auto) 21.5 % (10.0-50.0); Mean Corpuscular Hemoglobin 18.5 pg (28.0-32.0); Mean Corpuscular Hgb Conc. 30.3 g/dL (32.0-36.0); Mean Corpuscular Volume 61.2 fL (80.0-100.0); Monocytes # (auto) 0.7 10 ^3/uL (0-1.3); Monocytes % (auto) 11.8 % (0.0-12.0); Neutrophils # (auto) 3.8 10 ^3/uL (1.6-8.6); Neutrophils % (auto) 59.9 % (37.0-80.0); Platelet Count (auto) 240 10^3/uL (140-450)
[2020-12-19 10:31] LABS: Red Cell Distribution Width 21.6 % (11.8-14.3)
[2020-12-19 10:39] LABS: BUN/Creatinine Ratio 23.4; Calcium 8.3 mg/dL (8.5-10.1); Potassium 3.4 mmol/L (3.5-5.1)
[2020-12-19 14:30] VITALS: BP 151/83
[2020-12-19 16:06] VITALS: BP 151/83
== END 2020-12-19 17:04 | disposition home health service (06) | DRG 194 ==
LOC: EDBD 00:46 → ER 00:46 → TELE 00:47 → TELE-WESTW 11:26
PROVIDERS: ADMIT Hospitalist; ATTEND Hospitalist
DX: I11.0 Hypertensive heart disease with heart failure (principal); L03.115 Cellulitis of right lower limb; I42.0 Dilated cardiomyopathy; I50.23 Acute on chronic systolic (congestive) heart failure; F17.210 Nicotine dependence, cigarettes, uncomplicated; J44.9 Chronic obstructive pulmonary disease, unspecified; Z20.822 Contact with and (suspected) exposure to COVID-19; J98.11 Atelectasis; F15.90 Other stimulant use, unspecified, uncomplicated; I42.7 Cardiomyopathy due to drug and external agent; E78.5 Hyperlipidemia, unspecified; I25.10 Atherosclerotic heart disease of native coronary artery without angina pectoris; I25.2 Old myocardial infarction; Z83.3 Family history of diabetes mellitus; Z90.49 Acquired absence of other specified parts of digestive tract; Z91.14 Patient's other noncompliance with medication regimen; Z79.899 Other long term (current) drug therapy; Z80.42 Family history of malignant neoplasm of prostate; Z82.0 Family history of epilepsy and other diseases of the nervous system; Z82.49 Family history of ischemic heart disease and other diseases of the circulatory system; Z88.5 Allergy status to narcotic agent; L03.116 Cellulitis of left lower limb
CPT/HCPCS: 36415; 71045; 73620; 80048; 80053; 80307; 81001; 83735; 83880; 84484; 85025; 87040; 87426; 93005; 93306; 96365; 96375; 96376; G0378; J1956; J3490

== ENCOUNTER 2021-01-03 14:29 | Emergency (ER) | payer MEDICAID ==
[~2021-01-03] VITALS: Ht 167.6 cm; Wt 81.6 kg
[~2021-01-03 14:29] MED LIST changes: +ASPI-543 PO; +CLIN300C8 PO; +CLOT1CRE56 TOP
[2021-01-03 14:54] VITALS: BP 169/123
[2021-01-03 15:31] LABS: Eosinophils # (auto) 0.3 10 ^3/uL (0-0.8); Hemoglobin 10.5 g/dL (13.5-17.5); Monocytes # (auto) 0.6 10 ^3/uL (0-1.3); Monocytes % (auto) 7.8 % (0.0-12.0)
[2021-01-03 15:33] LABS: Basophils # (auto) 0.2 10 ^3/uL (0-0.2); Basophils % (auto) 1.9 % (0.0-2.0); Eosinophils % (auto) 3.8 % (0.0-7.0); Hematocrit 33.1 % (41.0-53.0); Lymphocytes # (auto) 1.8 10 ^3/uL (0.4-5.4); Mean Corpuscular Hemoglobin 19.5 pg (28.0-32.0); Mean Corpuscular Hgb Conc. 31.9 g/dL (32.0-36.0); Mean Corpuscular Volume 61.1 fL (80.0-100.0); Neutrophils # (auto) 5.3 10 ^3/uL (1.6-8.6); Neutrophils % (auto) 64.5 % (37.0-80.0); Platelet Count (auto) 233 10^3/uL (140-450); Red Blood Cells 5.41 10^6/uL (4.5-5.90); Red Cell Distribution Width 22.4 % (11.8-14.3); White Blood Cell 8.2 10^3/uL (4.4-10.8)
[2021-01-03 15:49] LABS: Albumin 3.6 g/dL (3.4-5.0); Calcium 8.7 mg/dL (8.5-10.1)
[2021-01-03 15:55] LABS: BUN/Creatinine Ratio 41.3; Bilirubin, Total 0.6 mg/dL (0.2-1.0); Total Protein 7.1 g/dL (6.4-8.2)
[2021-01-03 16:35] LABS: INR 1.18 (0.9-1.15); Partial Thromboplastin Time 27.1 sec (23.0-31.2)
== END 2021-01-03 19:15 | disposition left against medical advice (07) ==
LOC: EDBD 14:29 → ER 14:29
DX: R60.0 Localized edema (principal); I50.9 Heart failure, unspecified; Z53.21 Procedure and treatment not carried out due to patient leaving prior to being seen by health care provider
CPT/HCPCS: 36415; 71046; 80053; 83880; 84484; 85025; 85610; 85730; 93005

== ENCOUNTER 2021-01-05 13:08 | Inpatient (IN) | payer MEDICAID ==
[~2021-01-05] VITALS: Ht 165.1 cm; Wt 75.6 kg
[2021-01-05] MEDS ORDERED: FUROSEMIDE 40 MG/4 ML VIAL IV ONE (13:15)
[2021-01-05] MEDS ORDERED: cloNIDine HCL 0.1 MG TAB ONE (13:40)
[2021-01-05] MEDS ORDERED: cloNIDine HCL 0.1 MG TAB PO ONE (13:45)
[2021-01-05 15:02] LABS: Eosinophils # (auto) 0.1 10 ^3/uL (0-0.8); Lymphocytes # (auto) 1.8 10 ^3/uL (0.4-5.4); Nucleated Red Blood Cells % 0.1 %
[2021-01-05 15:04] LABS: Basophils # (auto) 0 10 ^3/uL (0-0.2); Basophils % (auto) 0.5 % (0.0-2.0); Eosinophils % (auto) 1.3 % (0.0-7.0); Hematocrit 34.9 % (41.0-53.0); Lymphocytes % (auto) 20.2 % (10.0-50.0); Mean Corpuscular Hemoglobin 19.3 pg (28.0-32.0); Mean Corpuscular Hgb Conc. 31.6 g/dL (32.0-36.0); Mean Corpuscular Volume 61.1 fL (80.0-100.0); Monocytes # (auto) 0.6 10 ^3/uL (0-1.3); Monocytes % (auto) 6.3 % (0.0-12.0); Neutrophils # (auto) 6.4 10 ^3/uL (1.6-8.6); Neutrophils % (auto) 71.7 % (37.0-80.0); Platelet Count (auto) 267 10^3/uL (140-450); Red Blood Cells 5.72 10^6/uL (4.5-5.90); White Blood Cell 8.9 10^3/uL (4.4-10.8)
[2021-01-05 15:15] LABS: Red Cell Distribution Width 22.4 % (11.8-14.3)
[2021-01-05 15:19] LABS: Albumin 3.4 g/dL (3.4-5.0); BUN/Creatinine Ratio 37.5; Calcium 8.3 mg/dL (8.5-10.1)
[2021-01-05 15:23] LABS: Bilirubin, Total 1.2 mg/dL (0.2-1.0); Total Protein 7.3 g/dL (6.4-8.2)
[2021-01-05] MEDS ORDERED: hydrALAZINE HCL 20 MG/ML VL IV ONE (15:30)
[2021-01-05] MEDS ORDERED: ONDANSETRON HCL 4 MG/2 ML VIAL IV PRN (17:30)
[2021-01-05] MEDS ORDERED: ACETAMINOPHEN 500 MG TAB PO PRN (17:30)
[2021-01-05] MEDS ORDERED: NITROGLYCERIN 0.4 MG SL TAB SL PRN (17:30)
[2021-01-05] MEDS ORDERED: MORPHINE SULF INJ 2 MG/ML SYRINGE 1ML IV PRN ×2 (17:30)
[2021-01-05 18:13] LABS: Urine WBC None Seen /hpf (0 - 3)
[2021-01-05 18:36] LABS: Urine Bacteria NONE SEEN /hpf (None Seen); Urine Blood Negative /uL (Negative); Urine Specific Gravity 1.004 (1.001-1.035)
[2021-01-05 18:39] LABS: Alcohol, Urine < 3.0 mg/dL (0-10); Amphetamine Screen, Urine NEGATIVE (NEGATIVE); Barbiturate Scree,Urine NEGATIVE (NEGATIVE); Benzodiazephine Screen, Urine NEGATIVE (NEGATIVE); Cannabinoid Screen, Urine NEGATIVE (NEGATIVE); Cocaine Screen, Urine NEGATIVE (NEGATIVE); Opiate Scree,Urine NEGATIVE (NEGATIVE); Phencyclidine Screen, Urine NEGATIVE (NEGATIVE)
[2021-01-05] MEDS: LABETALOL HCL 200 MG TAB PO SCH (21:55)
[2021-01-06] MEDS: LABETALOL HCL 200 MG TAB PO SCH ×3 (06:53→22:00)
[2021-01-06 14:59] VITALS: BP 129/90
[2021-01-06] MEDS ORDERED: hydrALAZINE HCL 20 MG/ML VL IV PRN (16:30)
[2021-01-06] MEDS ORDERED: ENOXAPARIN SOD 40 MG/0.4 ML SYRINGE SC ONE (16:30)
[2021-01-06 16:53] VITALS: BP 139/94
[2021-01-06 22:00] VITALS: BP 148/98
[2021-01-06] MEDS: LISINOPRIL 10 MG TAB PO SCH (22:00)
[2021-01-07 05:00] VITALS: BP 142/100
[2021-01-07] MEDS: LABETALOL HCL 200 MG TAB PO SCH ×2 (06:13→14:25)
[2021-01-07 08:53] VITALS: BP 139/87
[2021-01-07] MEDS: LISINOPRIL 10 MG TAB PO SCH (09:35)
[2021-01-07] MEDS ORDERED: FURO1TAB31 PO (09:51)
[2021-01-07] MEDS ORDERED: AMLO-496 PO (09:51)
[2021-01-07] MEDS ORDERED: LOSA-69 PO (09:51)
[2021-01-07] MEDS ORDERED: POTA10TA51 PO (09:51)
[2021-01-07] MEDS ORDERED: METO-6 PO (09:51)
[2021-01-07] MEDS ORDERED: ATOR20TA50 PO (09:51)
[2021-01-07] MEDS ORDERED: ASPI-543 PO (09:51)
[2021-01-07] MEDS ORDERED: ENOXAPARIN SOD 40 MG/0.4 ML SYRINGE SC SCH (10:00)
[2021-01-07 11:03] VITALS: BP 139/87
[2021-01-07 13:07] VITALS: BP 148/86
== END 2021-01-07 15:15 | disposition home health service (06) | DRG 194 ==
LOC: ER 13:08 → TELE 17:34 → TELE-WESTW 01-06 14:44
PROVIDERS: ADMIT Hospitalist; ATTEND Hospitalist
DX: I11.0 Hypertensive heart disease with heart failure (principal); F15.10 Other stimulant abuse, uncomplicated; I50.43 Acute on chronic combined systolic (congestive) and diastolic (congestive) heart failure; J44.9 Chronic obstructive pulmonary disease, unspecified; Z60.2 Problems related to living alone; I16.1 Hypertensive emergency; F17.210 Nicotine dependence, cigarettes, uncomplicated; Z20.822 Contact with and (suspected) exposure to COVID-19; I25.10 Atherosclerotic heart disease of native coronary artery without angina pectoris; Z82.0 Family history of epilepsy and other diseases of the nervous system; Z82.49 Family history of ischemic heart disease and other diseases of the circulatory system; Z83.3 Family history of diabetes mellitus; Z88.5 Allergy status to narcotic agent; Z90.49 Acquired absence of other specified parts of digestive tract; Z80.42 Family history of malignant neoplasm of prostate
CPT/HCPCS: 36415; 71045; 80053; 80307; 81001; 83880; 84484; 85025; 87081; 87426; 93005; 96365; 96366; 96375; G0378

== ENCOUNTER 2021-02-22 19:40 | Inpatient (IN) | payer MEDICAID ==
[~2021-02-22] VITALS: Ht 165.1 cm; Wt 76.7 kg
[~2021-02-22 19:40] MED LIST changes: -CLIN300C8 PO; -CLOT1CRE56 TOP
[2021-02-22] MEDS ORDERED: hydrALAZINE HCL 20 MG/ML VL IV ONE ×3 (20:00→23:00)
[2021-02-22] MEDS ORDERED: NITROGLYCERIN 2% OINT 1GM PKG TD ONE (20:30)
[2021-02-22] MEDS ORDERED: FUROSEMIDE 40 MG/4 ML VIAL IV ONE (21:45)
[2021-02-22 22:15] LABS: Hemoglobin 10.9 g/dL (13.5-17.5)
[2021-02-22 22:17] LABS: Hematocrit 35.1 % (41.0-53.0); Mean Corpuscular Hemoglobin 18.8 pg (28.0-32.0); Mean Corpuscular Hgb Conc. 30.9 g/dL (32.0-36.0); Mean Corpuscular Volume 60.8 fL (80.0-100.0); Red Blood Cells 5.77 10^6/uL (4.5-5.90); White Blood Cell 11.9 10^3/uL (4.4-10.8)
[2021-02-22 22:26] LABS: Potassium 4.4 mmol/L (3.5-5.1)
[2021-02-22 22:29] LABS: Lactic Acid w/Reflex 2.8 mmol/L (0.4-2.0)
[2021-02-22 22:38] LABS: Albumin 3.3 g/dL (3.4-5.0); BUN/Creatinine Ratio 35.2; Bilirubin, Total 2.1 mg/dL (0.2-1.0); Calcium 8.7 mg/dL (8.5-10.1); Magnesium 2.3 mg/dL (1.6-2.6)
[2021-02-22 22:51] LABS: Urine Bacteria FEW /hpf (None Seen); Urine Blood TRACE /uL (Negative); Urine Mucus FEW (None Seen); Urine Specific Gravity 1.013 (1.001-1.035); Urine Sperm PRESENT /hpf (None Seen); Urine WBC 1 /hpf (0 - 3)
[2021-02-22 22:53] LABS: Basophils % (manual) 0 (0.0-2.0); Blast Cells 0; Eosinophils % (manual) 0 (0-7); Metamyelocytes % 0; Myelocytes % 0; Promyelocytes % 0; Reactive Lymphocytes 0
[2021-02-22 22:56] LABS: Band Neutrophils % (manual) 10; Lymphocytes % (manual) 18 (10.0-50.0); Monocytes % (manual) 3 (0-12)
[2021-02-22] MEDS ORDERED: ASPirin 325 MG TAB PO ONE (23:00)
[2021-02-22] MEDS ORDERED: ENOXAPARIN SOD 100 MG/1 ML SYRINGE SC ONE (23:00)
[2021-02-22] MEDS ORDERED: cefTRIAXone 1GM/50ML D5W 50 ML IV ONE (23:45)
[2021-02-22] MEDS ORDERED: AZITHROMYCIN 500MG/ 250ML 250 ML IV ONE (23:45)
[2021-02-22 23:54] LABS: INR 1.65 (0.9-1.15)
[2021-02-23] MEDS ORDERED: hydrALAZINE HCL 20 MG/ML VL IV PRN ×2 (01:00)
[2021-02-23] MEDS ORDERED: ONDANSETRON HCL 4 MG/2 ML VIAL IV PRN (01:00)
[2021-02-23] MEDS: FUROSEMIDE 40 MG/4 ML VIAL IV SCH ×2 (09:17→22:13)
[2021-02-23] MEDS: ASPirin-EC 81 mg tab PO SCH (09:48)
[2021-02-23] MEDS: POTASSIUM CHL 20 Meq TABLET PO SCH ×2 (09:48→22:14)
[2021-02-23] MEDS: ATORVASTATIN 20 MG TAB PO SCH (09:49)
[2021-02-23] MEDS: METOPROLOL TARTRATE 25 MG TAB PO SCH ×2 (09:49→22:15)
[2021-02-23] MEDS: ENOXAPARIN SOD 40 MG/0.4 ML SYRINGE SC SCH (09:50)
[2021-02-23] MEDS ORDERED: amLODIPine BESYLATE 5 MG TAB PO SCH (10:00)
[2021-02-23] MEDS ORDERED: CLINDAMYCIN 600MG IV 50 ML IV ONE (15:00)
[2021-02-23 17:50] LABS: Hepatitis A Ab IgM Negative; Hepatitis B Core IgM Negative; Hepatitis B Surface Antigen Negative (Negative); Hepatitis C Antibody Negative (Negative)
[2021-02-23 22:00] VITALS: BP 140/77
[2021-02-23] MEDS: ENALAPRIL MALEATE 10 MG TAB PO SCH (22:15)
[2021-02-23 22:33] LABS: Eosinophils # (auto) 0.2 10 ^3/uL (0-0.8); Hemoglobin 10.6 g/dL (13.5-17.5); Neutrophils # (auto) 6.6 10 ^3/uL (1.6-8.6); White Blood Cell 9.4 10^3/uL (4.4-10.8)
[2021-02-23 22:38] LABS: Basophils # (auto) 0.1 10 ^3/uL (0-0.2); Eosinophils % (auto) 2.3 % (0.0-7.0); Hematocrit 34.2 % (41.0-53.0); Lymphocytes # (auto) 1.6 10 ^3/uL (0.4-5.4); Lymphocytes % (auto) 17.2 % (10.0-50.0); Mean Corpuscular Volume 61.4 fL (80.0-100.0); Monocytes # (auto) 0.9 10 ^3/uL (0-1.3); Monocytes % (auto) 9.1 % (0.0-12.0); Neutrophils % (auto) 70.4 % (37.0-80.0); Nucleated Red Blood Cells % 0.2 %; Red Blood Cells 5.57 10^6/uL (4.5-5.90)
[2021-02-23 22:45] LABS: Red Cell Distribution Width 23.2 % (11.8-14.3)
[2021-02-23 22:47] VITALS: BP 140/77
[2021-02-23 22:49] LABS: Albumin 2.7 g/dL (3.4-5.0); BUN/Creatinine Ratio 22.3; Calcium 7.8 mg/dL (8.5-10.1); Potassium 3.3 mmol/L (3.5-5.1)
[2021-02-23 22:52] LABS: Bilirubin, Total 1.5 mg/dL (0.2-1.0)
[2021-02-23] MEDS: CLINDAMYCIN 600MG IV 50 ML IV SCH (23:50)
[2021-02-24] MEDS ORDERED: POTASSIUM CHL 20MEQ/100ML 100 ML IV ONE ×2 (00:15→17:00)
[2021-02-24 05:00] VITALS: BP 116/75
[2021-02-24 06:04] LABS: Eosinophils # (auto) 0.4 10 ^3/uL (0-0.8); Eosinophils % (auto) 3.4 % (0.0-7.0)
[2021-02-24 06:10] LABS: Basophils # (auto) 0.1 10 ^3/uL (0-0.2); Basophils % (auto) 1.4 % (0.0-2.0); Hematocrit 32.3 % (41.0-53.0); Hemoglobin 9.8 g/dL (13.5-17.5); Lymphocytes % (auto) 18.1 % (10.0-50.0); Mean Corpuscular Hemoglobin 18.5 pg (28.0-32.0); Mean Corpuscular Hgb Conc. 30.4 g/dL (32.0-36.0); Monocytes # (auto) 1.3 10 ^3/uL (0-1.3); Monocytes % (auto) 11.4 % (0.0-12.0); Neutrophils # (auto) 7.2 10 ^3/uL (1.6-8.6); Neutrophils % (auto) 65.7 % (37.0-80.0); Nucleated Red Blood Cells % 0.1 %; Red Blood Cells 5.29 10^6/uL (4.5-5.90)
[2021-02-24 06:29] LABS: Albumin 2.5 g/dL (3.4-5.0); Calcium 7.2 mg/dL (8.5-10.1); Potassium 3.3 mmol/L (3.5-5.1)
[2021-02-24 06:32] LABS: BUN/Creatinine Ratio 25.5
[2021-02-24 06:34] LABS: Total Protein 5.7 g/dL (6.4-8.2)
[2021-02-24 06:54] LABS: Red Cell Distribution Width 22.7 % (11.8-14.3)
[2021-02-24] MEDS: CLINDAMYCIN 600MG IV 50 ML IV SCH ×2 (08:39→16:14)
[2021-02-24 09:00] VITALS: BP 138/79
[2021-02-24] MEDS: FUROSEMIDE 40 MG/4 ML VIAL IV SCH ×2 (09:33→21:25)
[2021-02-24] MEDS: POTASSIUM CHL 20 Meq TABLET PO SCH ×2 (09:34→21:25)
[2021-02-24] MEDS: ASPirin-EC 81 mg tab PO SCH (09:34)
[2021-02-24] MEDS: ATORVASTATIN 20 MG TAB PO SCH (09:34)
[2021-02-24] MEDS: ENOXAPARIN SOD 40 MG/0.4 ML SYRINGE SC SCH (09:34)
[2021-02-24] MEDS: METOPROLOL TARTRATE 25 MG TAB PO SCH ×2 (09:34→21:26)
[2021-02-24] MEDS: ENALAPRIL MALEATE 10 MG TAB PO SCH ×2 (09:35→21:26)
[2021-02-24 13:00] VITALS: BP 132/92
[2021-02-24 17:00] VITALS: BP 138/88
[2021-02-24] MEDS ORDERED: CLIN300C8 PO (17:04)
[2021-02-24 22:00] VITALS: BP 143/86
[2021-02-25] MEDS: CLINDAMYCIN 600MG IV 50 ML IV SCH ×3 (00:32→16:00)
[2021-02-25 05:00] VITALS: BP 136/79
[2021-02-25 07:24] LABS: Basophils # (auto) 0.1 10 ^3/uL (0-0.2); Hemoglobin 9.8 g/dL (13.5-17.5); Monocytes # (auto) 1.2 10 ^3/uL (0-1.3); Neutrophils # (auto) 3.8 10 ^3/uL (1.6-8.6); Nucleated Red Blood Cells % 0.1 %; White Blood Cell 7.8 10^3/uL (4.4-10.8)
[2021-02-25 07:26] LABS: Basophils % (auto) 1.6 % (0.0-2.0); Eosinophils # (auto) 0.5 10 ^3/uL (0-0.8); Eosinophils % (auto) 6.1 % (0.0-7.0); Hematocrit 31.8 % (41.0-53.0); Lymphocytes # (auto) 2.2 10 ^3/uL (0.4-5.4); Mean Corpuscular Hemoglobin 18.9 pg (28.0-32.0); Mean Corpuscular Hgb Conc. 30.9 g/dL (32.0-36.0); Mean Corpuscular Volume 61.3 fL (80.0-100.0); Monocytes % (auto) 15.2 % (0.0-12.0); Neutrophils % (auto) 49.1 % (37.0-80.0); Red Blood Cells 5.19 10^6/uL (4.5-5.90)
[2021-02-25 07:39] LABS: Red Cell Distribution Width 23.1 % (11.8-14.3)
[2021-02-25 07:45] LABS: Potassium 3.5 mmol/L (3.5-5.1)
[2021-02-25 07:53] LABS: Albumin 2.7 g/dL (3.4-5.0); BUN/Creatinine Ratio 29.1; Bilirubin, Total 0.6 mg/dL (0.2-1.0); Calcium 7.4 mg/dL (8.5-10.1)
[2021-02-25 09:00] VITALS: BP 194/95
[2021-02-25] MEDS: POTASSIUM CHL 20 Meq TABLET PO SCH (09:29)
[2021-02-25] MEDS: ENOXAPARIN SOD 40 MG/0.4 ML SYRINGE SC SCH (09:29)
[2021-02-25] MEDS: ENALAPRIL MALEATE 10 MG TAB PO SCH (09:29)
[2021-02-25] MEDS: ASPirin-EC 81 mg tab PO SCH (09:29)
[2021-02-25] MEDS: METOPROLOL TARTRATE 25 MG TAB PO SCH (09:30)
[2021-02-25] MEDS: ATORVASTATIN 20 MG TAB PO SCH (09:30)
[2021-02-25] MEDS: FUROSEMIDE 40 MG/4 ML VIAL IV SCH (09:30)
[2021-02-25 13:00] VITALS: BP 152/91
[2021-02-25 13:59] VITALS: BP 121/85
[2021-02-25 17:00] VITALS: BP 163/105
== END 2021-02-25 18:55 | disposition home health service (06) | DRG 194 ==
LOC: EDBD 19:40 → ER 19:40 → TELE 02-23 00:52 → TELE-WESTW 02-23 20:30
PROVIDERS: ADMIT Hospitalist; ATTEND Hospitalist
PROC: 05HA33Z Insertion of Infusion Device into Left Brachial Vein, Percutaneous Approach (ICD-10-PCS; principal; 2021-02-23)
PROC: B54NZZA Ultrasonography of Left Upper Extremity Veins, Guidance (ICD-10-PCS; 2021-02-23)
DX: I11.0 Hypertensive heart disease with heart failure (principal); I42.8 Other cardiomyopathies; L03.115 Cellulitis of right lower limb; L03.116 Cellulitis of left lower limb; I16.1 Hypertensive emergency; E78.5 Hyperlipidemia, unspecified; I50.23 Acute on chronic systolic (congestive) heart failure; F15.90 Other stimulant use, unspecified, uncomplicated; F17.210 Nicotine dependence, cigarettes, uncomplicated; D64.9 Anemia, unspecified; R79.89 Other specified abnormal findings of blood chemistry; J44.9 Chronic obstructive pulmonary disease, unspecified; R94.5 Abnormal results of liver function studies; Z20.822 Contact with and (suspected) exposure to COVID-19; I25.10 Atherosclerotic heart disease of native coronary artery without angina pectoris; Z83.3 Family history of diabetes mellitus; Z91.19 Patient's noncompliance with other medical treatment and regimen; Z88.5 Allergy status to narcotic agent; I25.2 Old myocardial infarction; Z90.49 Acquired absence of other specified parts of digestive tract
CPT/HCPCS: 36415; 71045; 76705; 80053; 80074; 81001; 83605; 83735; 83880; 84484; 85007; 85025; 85027; 85610; 87040; 87426; 93005; 96365; 96366; 96367; 96368; 96372; 96375; 96376; G0378; J0696; J3480; J3490

== ENCOUNTER 2021-04-22 20:06 | Inpatient (IN) | payer MEDICAID ==
[~2021-04-22] VITALS: Ht 162.6 cm; Wt 68.2 kg
[~2021-04-22 20:06] MED LIST changes: +CLIN300C8 PO
[2021-04-22 21:37] LABS: Basophils # (auto) 0.3 10 ^3/uL (0-0.2); Eosinophils # (auto) 0.1 10 ^3/uL (0-0.8); White Blood Cell 9.7 10^3/uL (4.4-10.8)
[2021-04-22 21:39] LABS: Basophils % (auto) 2.7 % (0.0-2.0); Eosinophils % (auto) 1.1 % (0.0-7.0); Hematocrit 38.1 % (41.0-53.0); Hemoglobin 11.7 g/dL (13.5-17.5); Lymphocytes # (auto) 1.8 10 ^3/uL (0.4-5.4); Lymphocytes % (auto) 18.7 % (10.0-50.0); Mean Corpuscular Hemoglobin 19.3 pg (28.0-32.0); Mean Corpuscular Hgb Conc. 30.6 g/dL (32.0-36.0); Mean Corpuscular Volume 62.9 fL (80.0-100.0); Monocytes # (auto) 0.8 10 ^3/uL (0-1.3); Monocytes % (auto) 7.9 % (0.0-12.0); Neutrophils # (auto) 6.8 10 ^3/uL (1.6-8.6); Neutrophils % (auto) 69.6 % (37.0-80.0); Nucleated Red Blood Cells % 0.1 %; Red Blood Cells 6.06 10^6/uL (4.5-5.90)
[2021-04-22 21:45] LABS: Red Cell Distribution Width 25.5 % (11.8-14.3)
[2021-04-22 21:50] LABS: Albumin 3.5 g/dL (3.4-5.0); BUN/Creatinine Ratio 35.6; Calcium 8.8 mg/dL (8.5-10.1); Potassium 3.8 mmol/L (3.5-5.1)
[2021-04-22] MEDS ORDERED: NITROGLYCERIN 2% OINT 1GM PKG TD ONE (22:15)
[2021-04-22] MEDS ORDERED: ASPirin 325 MG TAB PO ONE (22:15)
[2021-04-22] MEDS ORDERED: FUROSEMIDE 40 MG/4 ML VIAL IV ONE (22:15)
[2021-04-23] MEDS ORDERED: ONDANSETRON HCL 4 MG/2 ML VIAL IV PRN (04:45)
[2021-04-23] MEDS ORDERED: MORPHINE SULFATE INJECTION 2 MG/ML SYRG IV PRN (04:45)
[2021-04-23] MEDS ORDERED: NITROGLYCERIN 0.4 MG SL TAB SL PRN (04:45)
[2021-04-23] MEDS ORDERED: FUROSEMIDE 20 MG/2 ML VIAL IV SCH (10:00)
[2021-04-23] MEDS ORDERED: METOPROLOL TARTRATE 1MG/1ML-5ML VIAL IV PRN (10:00)
[2021-04-23] MEDS: METOPROLOL TARTRATE 25 MG TAB PO SCH ×2 (10:22→23:40)
[2021-04-23] MEDS: FUROSEMIDE 40 MG/4 ML VIAL IV SCH (18:13)
[2021-04-24] VITALS (10 sets, daily range): BP systolic 111–147; BP diastolic 79–103
[2021-04-24] MEDS: FUROSEMIDE 40 MG/4 ML VIAL IV SCH ×2 (06:02→17:23)
[2021-04-24] MEDS ORDERED: ALBUAER3 IN (07:35)
[2021-04-24] MEDS ORDERED: FURO1TAB31 PO (07:35)
[2021-04-24] MEDS: METOPROLOL TARTRATE 25 MG TAB PO SCH ×2 (10:13→23:06)
[2021-04-24 10:33] LABS: Albumin 3.3 g/dL (3.4-5.0); Calcium 7.9 mg/dL (8.5-10.1)
[2021-04-24 10:38] LABS: BUN/Creatinine Ratio 26.2; Bilirubin, Total 0.6 mg/dL (0.2-1.0); Total Protein 6.7 g/dL (6.4-8.2)
[2021-04-24] MEDS ORDERED: POTASSIUM EFFERVESENT TAB 25 MEQ GT ONE (18:30)
[2021-04-24] MEDS ORDERED: AMIODARONE 450mg/250ml AE 250 ML IV SCH (21:30)
[2021-04-24] MEDS ORDERED: AMIODARONE HCL 150 MG in D5W 5% 100 ML IV ONE (21:30)
[2021-04-25] MEDS ORDERED: AMIODARONE 450mg/250ml AE 250 ML IV SCH (03:30)
[2021-04-25 05:25] VITALS: BP 137/92
[2021-04-25] MEDS: FUROSEMIDE 40 MG/4 ML VIAL IV SCH (06:20)
[2021-04-25 09:00] VITALS: BP 112/75
[2021-04-25] MEDS ORDERED: METOPROLOL TARTRATE 25 MG TAB PO ONE (10:00)
[2021-04-25] MEDS ORDERED: POTASSIUM EFFERVESENT TAB 25 MEQ PO ONE (10:00)
[2021-04-25] MEDS ORDERED: POTA-180 PO (10:05)
[2021-04-25] MEDS ORDERED: MIRT-66 PO (10:05)
[2021-04-25] MEDS ORDERED: BUPRTAB PO (10:05)
[2021-04-25] MEDS ORDERED: AMIODARONE HCL 200 MG TAB PO ONE (10:45)
[2021-04-25] MEDS ORDERED: AMIO200T33 PO (11:25)
[2021-04-25] MEDS ORDERED: APIX5TAB OR (11:25)
[2021-04-25 11:59] LABS: BUN/Creatinine Ratio 30.8; Calcium 7.9 mg/dL (8.5-10.1)
[2021-04-25] MEDS ORDERED: MET25T PO (12:15)
[2021-04-25 12:45] VITALS: BP 112/75
[2021-04-25 13:00] VITALS: BP 144/109
[2021-04-25] MEDS ORDERED: MIRTAZAPINE 30 MG TAB PO SCH (22:00)
[2021-04-25] MEDS ORDERED: METOPROLOL TARTRATE 25 MG TAB PO SCH (22:00)
[2021-04-25] MEDS ORDERED: AMIODARONE HCL 200 MG TAB PO SCH (22:00)
== END 2021-04-25 15:30 | disposition home health service (06) | DRG 194 ==
LOC: EDBD 20:06 → EDSEX 20:06 → ER 20:08 → OBSVTOIN 04-23 04:33 → TELE 04-23 04:33 → TELE-WESTW 04-23 04:36
PROVIDERS: ADMIT Hospitalist; ATTEND Hospitalist
DX: I11.0 Hypertensive heart disease with heart failure (principal); I27.20 Pulmonary hypertension, unspecified; I42.7 Cardiomyopathy due to drug and external agent; I50.23 Acute on chronic systolic (congestive) heart failure; J44.9 Chronic obstructive pulmonary disease, unspecified; I48.91 Unspecified atrial fibrillation; E87.6 Hypokalemia; T50.995A Adverse effect of other drugs, medicaments and biological substances, initial encounter; F17.210 Nicotine dependence, cigarettes, uncomplicated; G89.29 Other chronic pain; F19.94 Other psychoactive substance use, unspecified with psychoactive substance-induced mood disorder; Z20.822 Contact with and (suspected) exposure to COVID-19; I47.1 Supraventricular tachycardia; F15.20 Other stimulant dependence, uncomplicated; E78.5 Hyperlipidemia, unspecified; Z82.0 Family history of epilepsy and other diseases of the nervous system; Z80.42 Family history of malignant neoplasm of prostate; Z83.3 Family history of diabetes mellitus; Z91.19 Patient's noncompliance with other medical treatment and regimen; Z88.5 Allergy status to narcotic agent; Z90.49 Acquired absence of other specified parts of digestive tract; Z91.14 Patient's other noncompliance with medication regimen; Y92.89 Other specified places as the place of occurrence of the external cause
CPT/HCPCS: 36415; 71045; 80048; 80053; 83880; 84484; 85025; 87426; 93005; 93306; 96374; 96375; 96376; G0378; J7060

== ENCOUNTER 2021-05-04 02:24 | Inpatient (IN) | payer MEDICAID ==
[~2021-05-04] VITALS: Ht 170.2 cm; Wt 70.1 kg
[~2021-05-04 02:24] MED LIST changes: +ALBUAER3 IN; +AMIO200T33 PO; -AMLO-496 PO; +APIX5TAB OR; +BUPRTAB PO; -CLIN300C8 PO; -LOSA-69 PO; +MET25T PO; -METO-6 PO; +MIRT-66 PO; +POTA-180 PO
[2021-05-04 04:03] LABS: Eosinophils # (auto) 0.1 10 ^3/uL (0-0.8); Hemoglobin 10.8 g/dL (13.5-17.5); Lymphocytes # (auto) 1.7 10 ^3/uL (0.4-5.4); Monocytes # (auto) 0.9 10 ^3/uL (0-1.3); Neutrophils # (auto) 5.6 10 ^3/uL (1.6-8.6); Nucleated Red Blood Cells % 0.2 %
[2021-05-04 04:05] LABS: Basophils # (auto) 0.2 10 ^3/uL (0-0.2); Basophils % (auto) 2.4 % (0.0-2.0); Eosinophils % (auto) 1.3 % (0.0-7.0); Hematocrit 35.5 % (41.0-53.0); Lymphocytes % (auto) 20.3 % (10.0-50.0); Mean Corpuscular Hemoglobin 19.4 pg (28.0-32.0); Mean Corpuscular Hgb Conc. 30.4 g/dL (32.0-36.0); Monocytes % (auto) 10.5 % (0.0-12.0); Neutrophils % (auto) 65.5 % (37.0-80.0); Red Blood Cells 5.55 10^6/uL (4.5-5.90); White Blood Cell 8.5 10^3/uL (4.4-10.8)
[2021-05-04 04:06] LABS: Albumin 2.9 g/dL (3.4-5.0); Calcium 8.4 mg/dL (8.5-10.1); Magnesium 2.1 mg/dL (1.6-2.6); Potassium 4.2 mmol/L (3.5-5.1)
[2021-05-04 04:08] LABS: BUN/Creatinine Ratio 39.7
[2021-05-04 04:13] LABS: Bilirubin, Total 0.7 mg/dL (0.2-1.0); Total Protein 6.4 g/dL (6.4-8.2)
[2021-05-04 04:29] LABS: Red Cell Distribution Width 25.3 % (11.8-14.3)
[2021-05-04 04:46] LABS: INR 1.41 (0.9-1.15); Partial Thromboplastin Time 26.1 sec (23.6-33.0)
[2021-05-04] MEDS ORDERED: dilTIAZem 25 MG/5 ML VIAL IV ONE (05:45)
[2021-05-04] MEDS ORDERED: FUROSEMIDE 40 MG/4 ML VIAL IV ONE (07:45)
[2021-05-04] MEDS ORDERED: ENOXAPARIN SOD 80 MG/0.8ML SYRINGE SC ONE (07:45)
[2021-05-04] MEDS ORDERED: LABETALOL HCL 5 MG/ML 4ML SYRINGE IV ONE (07:45)
[2021-05-04] MEDS ORDERED: IOHEXOL 350 MG/ML 100ML IJ ONE (07:48)
[2021-05-04] MEDS ORDERED: dilTIAZem 125mg/125ml BAG KIT 125 ML IV ONE (09:15)
[2021-05-04] MEDS ORDERED: ALBUTEROL SULF HFA 90MCG INH 200DOSE IN PRN (11:00)
[2021-05-04] MEDS ORDERED: MORPHINE SULFATE INJECTION 2 MG/ML SYRG IV PRN (11:15)
[2021-05-04] MEDS ORDERED: ALBUTEROL SULF 2.5 MG/0.5ML(0.5%) NEB SOLN NEB PRN (11:15)
[2021-05-04] MEDS ORDERED: AMIODARONE HCL 150 MG in D5W 5% 100 ML IV ONE (11:15)
[2021-05-04] MEDS ORDERED: AMIODARONE 450mg/250ml AE 250 ML IV SCH ×2 (11:15→17:15)
[2021-05-04] MEDS ORDERED: NITROGLYCERIN 0.4 MG SL TAB SL PRN (11:15)
[2021-05-04 11:46] LABS: INR 1.42 (0.9-1.15)
[2021-05-04 12:24] LABS: Urine Bacteria NONE SEEN /hpf (None Seen); Urine Blood Negative /uL (Negative); Urine Specific Gravity 1.007 (1.001-1.035); Urine WBC <1 /hpf (0 - 3)
[2021-05-04 12:30] LABS: Alcohol, Urine < 3.0 mg/dL (0-10); Amphetamine Screen, Urine POSITIVE (NEGATIVE); Barbiturate Scree,Urine NEGATIVE (NEGATIVE); Benzodiazephine Screen, Urine NEGATIVE (NEGATIVE); Cannabinoid Screen, Urine NEGATIVE (NEGATIVE); Cocaine Screen, Urine NEGATIVE (NEGATIVE); Phencyclidine Screen, Urine NEGATIVE (NEGATIVE)
[2021-05-04 12:38] LABS: Opiate Scree,Urine NEGATIVE (NEGATIVE)
[2021-05-04] MEDS ORDERED: AMIODARONE HCL 200 MG TAB PO ONE (13:15)
[2021-05-04] MEDS ORDERED: METOPROLOL TARTRATE 50 MG TAB PO ONE (13:15)
[2021-05-04 13:28] VITALS: BP 158/121
[2021-05-04] MEDS ORDERED: FUROSEMIDE 40 MG TAB PO ONE (13:30)
[2021-05-04] MEDS ORDERED: DIGOXIN 0.25 MG TAB PO ONE (15:00)
[2021-05-04] MEDS: FUROSEMIDE 40 MG TAB PO SCH (18:24)
[2021-05-04] MEDS: MIRTAZAPINE 30 MG TAB PO SCH (18:25)
[2021-05-04] MEDS: APIXABAN 5 MG TAB PO SCH (21:47)
[2021-05-04] MEDS: ATORVASTATIN 20 MG TAB PO SCH (21:47)
[2021-05-04] MEDS: AMIODARONE HCL 200 MG TAB PO SCH (21:47)
[2021-05-04] MEDS: METOPROLOL TARTRATE 25 MG TAB PO SCH (21:49)
[2021-05-04] MEDS ORDERED: AMIODARONE HCL 200 MG TAB PO SCH (22:00)
[2021-05-05] MEDS ORDERED: hydrALAZINE HCL 20 MG/ML VL IV ONE (00:15)
[2021-05-05] MEDS ORDERED: hydrALAZINE HCL 20 MG/ML VL ONE (00:19)
[2021-05-05] MEDS ORDERED: hydrALAZINE HCL 20 MG/ML VL IV PRN ×2 (00:45)
[2021-05-05 04:30] VITALS: BP 165/114
[2021-05-05] MEDS: FUROSEMIDE 40 MG TAB PO SCH ×2 (05:16→17:40)
[2021-05-05] MEDS ORDERED: PNEUMOCOCCAL VACC POLYS 25 MCG/0.5 ML VIAL IM ONE (06:15)
[2021-05-05] MEDS ORDERED: INFLUENZA QUAD 2021-2022 0.5 ML SYRG IM ONE (06:15)
[2021-05-05 08:00] VITALS: BP 181/118
[2021-05-05 09:00] VITALS: BP 181/118
[2021-05-05] MEDS: BUPROPION HCL 150 MG PO SCH (10:00)
[2021-05-05] MEDS: POTASSIUM CHL 20 Meq TABLET PO SCH (10:00)
[2021-05-05] MEDS ORDERED: ASPirin-EC 81 mg tab PO SCH (10:00)
[2021-05-05] MEDS ORDERED: BUPROPION HCL 150 MG PO SCH (10:00)
[2021-05-05] MEDS: APIXABAN 5 MG TAB PO SCH ×2 (10:08→22:09)
[2021-05-05] MEDS: AMIODARONE HCL 200 MG TAB PO SCH ×2 (10:08→22:09)
[2021-05-05 10:13] LABS: BUN/Creatinine Ratio 37.2; Calcium 8.1 mg/dL (8.5-10.1); Potassium 4.7 mmol/L (3.5-5.1)
[2021-05-05] MEDS: DIGOXIN 0.125 MG TAB PO SCH (10:14)
[2021-05-05] MEDS: METOPROLOL TARTRATE 25 MG TAB PO SCH ×2 (10:14→22:10)
[2021-05-05 13:00] VITALS: BP 157/95
[2021-05-05 17:00] VITALS: BP 157/97
[2021-05-05] MEDS: MIRTAZAPINE 30 MG TAB PO SCH (17:40)
[2021-05-05 22:00] VITALS: BP 154/91
[2021-05-05] MEDS: ATORVASTATIN 20 MG TAB PO SCH (22:10)
[2021-05-06 05:00] VITALS: BP 152/89
[2021-05-06] MEDS: FUROSEMIDE 40 MG TAB PO SCH ×2 (06:25→18:03)
[2021-05-06 08:00] VITALS: BP 134/91
[2021-05-06 08:56] VITALS: BP 134/91
[2021-05-06] MEDS: BUPROPION HCL 150 MG PO SCH (10:00)
[2021-05-06] MEDS: AMIODARONE HCL 200 MG TAB PO SCH ×2 (10:13→22:52)
[2021-05-06] MEDS: POTASSIUM CHL 20 Meq TABLET PO SCH (10:14)
[2021-05-06] MEDS: DIGOXIN 0.125 MG TAB PO SCH (10:14)
[2021-05-06] MEDS: APIXABAN 5 MG TAB PO SCH ×2 (10:14→22:52)
[2021-05-06] MEDS: METOPROLOL TARTRATE 25 MG TAB PO SCH ×2 (10:15→22:52)
[2021-05-06 11:25] LABS: Calcium 7.6 mg/dL (8.5-10.1); Potassium 3.1 mmol/L (3.5-5.1)
[2021-05-06 11:31] LABS: BUN/Creatinine Ratio 38.2
[2021-05-06 13:00] VITALS: BP 142/88
[2021-05-06 17:00] VITALS: BP 123/68
[2021-05-06] MEDS: MIRTAZAPINE 30 MG TAB PO SCH (18:04)
[2021-05-06 21:42] VITALS: BP 160/103
[2021-05-06] MEDS: ATORVASTATIN 20 MG TAB PO SCH (22:52)
[2021-05-07 05:30] VITALS: BP 91/50
[2021-05-07] MEDS: FUROSEMIDE 40 MG TAB PO SCH ×2 (06:00→17:54)
[2021-05-07 09:00] VITALS: BP 111/61
[2021-05-07] MEDS: APIXABAN 5 MG TAB PO SCH ×2 (09:46→23:07)
[2021-05-07] MEDS: POTASSIUM CHL 20 Meq TABLET PO SCH (09:46)
[2021-05-07] MEDS: AMIODARONE HCL 200 MG TAB PO SCH ×2 (09:46→23:07)
[2021-05-07] MEDS: METOPROLOL TARTRATE 25 MG TAB PO SCH ×2 (09:47→23:07)
[2021-05-07] MEDS: BUPROPION HCL 150 MG PO SCH (10:00)
[2021-05-07 13:00] VITALS: BP 105/72
[2021-05-07 13:26] LABS: BUN/Creatinine Ratio 34.1; Calcium 7.7 mg/dL (8.5-10.1); Potassium 3.2 mmol/L (3.5-5.1)
[2021-05-07 17:00] VITALS: BP 132/78
[2021-05-07] MEDS: MIRTAZAPINE 30 MG TAB PO SCH (17:54)
[2021-05-07 19:56] VITALS: BP 132/78
[2021-05-07 21:42] VITALS: BP 165/98
[2021-05-07] MEDS: ATORVASTATIN 20 MG TAB PO SCH (23:07)
[2021-05-08] MEDS: FUROSEMIDE 40 MG TAB PO SCH (05:10)
[2021-05-08 05:21] VITALS: BP 135/79
[2021-05-08] MEDS: BUPROPION HCL 150 MG PO SCH (09:33)
[2021-05-08] MEDS: APIXABAN 5 MG TAB PO SCH (09:33)
[2021-05-08] MEDS: AMIODARONE HCL 200 MG TAB PO SCH (09:33)
[2021-05-08] MEDS: METOPROLOL TARTRATE 25 MG TAB PO SCH (09:34)
[2021-05-08] MEDS: POTASSIUM CHL 20 Meq TABLET PO SCH (09:34)
[2021-05-08 09:36] VITALS: BP 124/29
== END 2021-05-08 10:54 | disposition home health service (06) | DRG 194 ==
LOC: EDSEX 02:24 → EDBD 02:24 → ER 02:24 → TELE 11:01 → TELE-WESTW 05-05 02:52
PROVIDERS: ADMIT Hospitalist; ATTEND Hospitalist
DX: I11.0 Hypertensive heart disease with heart failure (principal); I42.9 Cardiomyopathy, unspecified; I48.20 Chronic atrial fibrillation, unspecified; I50.43 Acute on chronic combined systolic (congestive) and diastolic (congestive) heart failure; E78.5 Hyperlipidemia, unspecified; F15.10 Other stimulant abuse, uncomplicated; F17.210 Nicotine dependence, cigarettes, uncomplicated; I16.1 Hypertensive emergency; Z20.822 Contact with and (suspected) exposure to COVID-19; J44.9 Chronic obstructive pulmonary disease, unspecified; Z79.82 Long term (current) use of aspirin; Z82.0 Family history of epilepsy and other diseases of the nervous system; I25.2 Old myocardial infarction; Z82.49 Family history of ischemic heart disease and other diseases of the circulatory system; Z83.3 Family history of diabetes mellitus; Z90.49 Acquired absence of other specified parts of digestive tract; Z91.14 Patient's other noncompliance with medication regimen; Z88.5 Allergy status to narcotic agent; Z28.21 Immunization not carried out because of patient refusal
CPT/HCPCS: 36415; 71045; 80048; 80053; 80307; 81001; 83735; 83880; 84439; 84443; 84484; 85025; 85379; 85610; 85730; 87081; 87426; 93005; 96365; 96366; 96372; 96375; 97163; 99291; G0378; J3490; J7060

== ENCOUNTER 2021-07-03 17:07 | Emergency (ER) | payer MEDICAID ==
[~2021-07-03] VITALS: Ht 160 cm; Wt 77.1 kg
[~2021-07-03 17:07] MED LIST changes: -POTA-180 PO
[2021-07-03 21:02] VITALS: BP 185/122
[2021-07-03] MEDS ORDERED: predniSONE 20 MG TAB PO ONE (23:00)
[2021-07-03] MEDS ORDERED: IPRATROPIUM BROM 0.5 MG/2.5ML INH SOL NEB ONE (23:00)
[2021-07-03] MEDS ORDERED: ALBUTEROL SULF 2.5 MG/0.5ML(0.5%) NEB SOLN NEB ONE (23:00)
[2021-07-03] MEDS ORDERED: guaiFENesin-DM 100/10mg/5ml SYR PO ONE (23:00)
[2021-07-03 23:07] LABS: Urine Bacteria NONE SEEN /hpf (None Seen); Urine Blood Negative /uL (Negative); Urine Hyaline Cast FEW /lpf (0 - 2); Urine Specific Gravity 1.014 (1.001-1.035); Urine WBC 1 /hpf (0 - 3)
[2021-07-03] MEDS ORDERED: prednisoLONE 15 MG/5 ML ORAL UD PO SCH (23:45)
[2021-07-04] MEDS ORDERED: prednisoLONE 15 MG/5 ML ORAL UD PO SCH (10:00)
== END 2021-07-04 01:12 | disposition home or self-care (01) ==
LOC: ER 17:07 → EDBD 17:07 → ER 07-04 01:10
DX: J20.9 Acute bronchitis, unspecified (principal); R53.83 Other fatigue; R05.9 Cough, unspecified; I11.0 Hypertensive heart disease with heart failure; I50.9 Heart failure, unspecified; I25.2 Old myocardial infarction; J44.9 Chronic obstructive pulmonary disease, unspecified; F17.210 Nicotine dependence, cigarettes, uncomplicated; E78.5 Hyperlipidemia, unspecified; Z90.49 Acquired absence of other specified parts of digestive tract; Z20.822 Contact with and (suspected) exposure to COVID-19
CPT/HCPCS: 36415; 71045; 81001; 87426; 94640; 99284; J7510; J7644

== ENCOUNTER → 2024-10-13 | Outpatient (CLI) | payer MEDICAID ==
[~2024-10-13] VITALS: Ht 165.1 cm; Wt 76.2 kg
[~2024-10-13] MED LIST changes: -MIRT-66 PO; +MIRT-94 PO; +POTA-36 PO; -POTA10TA51 PO
[2024-10-13 11:47] LABS: Eosinophils # (auto) 0.2 10 ^3/uL (0-0.8); Hemoglobin 13.3 g/dL (13.5-17.5); Lymphocytes # (auto) 1.4 10 ^3/uL (0.4-5.4); Monocytes # (auto) 0.7 10 ^3/uL (0-1.3); Monocytes % (auto) 11.5 % (0.0-12.0); Red Cell Distribution Width 18.4 % (11.8-14.3)
[2024-10-13 11:49] LABS: Basophils # (auto) 0 10 ^3/uL (0-0.2); Basophils % (auto) 0.3 % (0.0-2.0); Eosinophils % (auto) 3.1 % (0.0-7.0); Hematocrit 41.2 % (41.0-53.0); Lymphocytes % (auto) 21.8 % (10.0-50.0); Mean Corpuscular Hemoglobin 24.3 pg (28.0-32.0); Mean Corpuscular Hgb Conc. 32.3 g/dL (32.0-36.0); Mean Corpuscular Volume 75.2 fL (80.0-100.0); Neutrophils % (auto) 63.3 % (37.0-80.0); Nucleated Red Blood Cells % 0.1 %; Platelet Count (auto) 221 10^3/uL (140-450); Red Blood Cells 5.47 10^6/uL (4.5-5.90); White Blood Cell 6.4 10^3/uL (4.4-10.8)
[2024-10-13 11:56] LABS: Alanine Aminotransferase 20 U/L (7-40); Albumin 4.4 g/dL (3.2-4.8); Alkaline Phosphatase 67 U/L (46-116); Anion Gap 6 (5-15); Aspartate Aminotransferase 23 U/L (13-40); Calcium 9.2 mg/dL (8.7-10.4); Carbon Dioxide 23 mmol/L (20-31); Glucose 93 mg/dL (74-106); Potassium 3.7 mmol/L (3.5-5.1); Sodium 137 mmol/L (136-145); Total Protein 6.9 g/dL (5.7-8.2)
[2024-10-13 11:57] LABS: Bilirubin, Total 0.8 mg/dL (0.2-1.0); Blood Urea Nitrogen 26 mg/dL (9-23); Chloride 108 mmol/L (98-107)
[2024-10-13 12:01] LABS: INR 1.13 (0.9-1.15); Prothrombin Time 11.8 sec (9.3-11.8)
[2024-10-15 14:49] LABS: Urine Bacteria None Seen /hpf (None Seen)
[2024-10-15 15:31] LABS: Urine Blood Negative /uL (Negative); Urine Clarity Clear (Clear); Urine Color Yellow (Yellow); Urine Protein, UAD Negative (Negative); Urine Specific Gravity 1.023 (1.001-1.035); Urine Squamous Epithelial Cell FEW /hpf (<5); Urine Urobilinogen Normal (Negative); Urine WBC 3 /HPF (0-3); Urine pH 5.5 (5.0-9.0)
== END | disposition home or self-care (01) ==
LOC: LAB 11:10 → EDSTATUS 10-20 22:22
PROVIDERS: ATTEND Podiatrist
DX: Z01.812 Encounter for preprocedural laboratory examination (principal); M20.41 Other hammer toe(s) (acquired), right foot
CPT/HCPCS: 36415; 80053; 81001; 85025; 85610; 85730

== ENCOUNTER → 2024-10-15 | Outpatient (CLI) | payer MEDICAID | END | disposition home or self-care (01) | LOC: LAB 11:47 | PROVIDERS: ATTEND Internal Medicine | DX: Z01.812 Encounter for preprocedural laboratory examination (principal); M20.41 Other hammer toe(s) (acquired), right foot | CPT/HCPCS: 81001 ==

== ENCOUNTER 2024-12-28 13:23 | Emergency (ER) | payer MEDICAID ==
[~2024-12-28] VITALS: Ht 165.1 cm; Wt 71.9 kg
[2024-12-28 13:52] VITALS: TEMP 99.3
--- NOTE | 2024-12-28 14:10 | ED.PDOC ---
Musculoskeletal HPI Comments JOHANNA: B/L LEG SWELLING HPI: Poor Historian. 54-year-old male presents to emergency depart for bilateral lower extremity pitting edema that started this morning with the associated mild shortness of breath worse with exertion. Patient states that this happened before. He is not on any diuretics. Patient denies any chest pain or dizziness or any other acute findings. Patient believes that this is related to heat exhaustion because it is hot outside. Patient drove himself to the ER. Patient is neurovascularly intact in bilateral lower extremities. Past Medical History: CHF, hypertension, congenital feet and hands defects. Past Surgical History: Appendectomy, bilateral ankle surgery. REVIEW OF SYSTEMS: CONSTITUTIONAL: Denies acute: fever, diaphoresis, chills, generalized weakness. HEAD: Denies acute: headache, photophobia Eyes: Denies acute: Double vision, vision loss, eye pain, eye discharge. EARS: Denies acute: tinnitus, hearing loss, ear discharge, ear pain, THROAT: Denies acute: sore throat, swelling, difficulty swallowing , pain with swallowing, change in voice. NECK: Denies acute: neck pain, neck swelling, stiff neck. HEART: Denies acute : chest pain, palpitations, LUNGS: Denies acute: wheezing, cough, hemoptysis ABDOMEN: Denies acute: abdominal pain, Nausea, Vomiting, diarrhea, melena , hematemesis, hematochezia SKIN: Denies acute: rash, redness, lesions, itchiness. EXTREMITIES: Denies acute: calf pain, numbness, tingling, weakness, denies pain in extremity. Denies acute: Low back pain. Neuro: Denies acute: focal neurological deficit, motor or sensory focal neurological deficit, tremors, seizure like activity, confusion, dizziness, change in mental status, loss of bowel or bladder function, cauda equina like symptoms. : Denies acute: dysuria, hematuria, flank pain, increase in urinary frequency. PSYCH: Denies acute: hallucination, suicidal ideation, homicidal ideation. PHYSICAL EXAM: General: -----mild---acute distress, awake and alert. Head: normocephalic, atraumatic. Neck: supple, trachea is midline, no swelling. Throat: Normal phonation. Eyes:, no erythema, no purulent discharge, no proptosis, no icterus. Heart: regular rate, regular rhythm, no significant murmur appreciated. Lungs: no apparent respiratory distress, Able to speak in full sentences. No wheezing, no rhonchi, no crackles. No stridors Clear to auscultation bilaterally. Abdomen: non tender to palpation, non distended, soft, no guarding, no rebound, + bowel sounds. Neuro: Awake, Alert, oriented to name, self, situation, follows commands GCS=15. Speech is normal. Skin: no petechia, no purpura, no cyanosis, non-pale, not jaundice. Lower extremities: --bilateral 3/4- Pitting edema no focal swelling, no calf TTP. Patient is neurovascularly intact in bilateral lower extremity. 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 Makes eye contact. moves all four extremities. Face: no apparent facial droop. Ambulating in the ED independently. Pedal pulses are palpable. ED COURSE: Chief Complaint: Extremity Swelling Time Seen by MD: 13:40 Primary Care Provider: HELEN Reviewed Notes: Nurses Notes, Allergies Allergies: Coded Allergies: Hydrocodone (Verified Allergy, Unknown, N/V, 10/13/24) Home Meds Active Scripts Furosemide (Lasix) 20 Mg Tb, 1 TAB PO DAILY for 5 Days, #5 TAB 0 Refills Prov:RUBY DENTON DO 12/28/24 Metoprolol Tartrate (Lopressor) 25 Mg Tb, 50 MG PO BID, #120 TAB Prov:MECCA DAMICO MD 04/25/21 Amiodarone Hcl (Amiodarone Hcl) 200 Mg Tab, 200 MG PO BID, #60 TAB Prov:MECCA DAMICO MD 04/25/21 Apixaban Base (ELIQUIS) 5 Mg Tab, 5 MG OR BID, #60 TAB Prov:MECCA DAMICO MD 04/25/21 Bupropion HCl (Wellbutrin Xl) 150 Mg Tab, 150 MG PO DAILY, #30 TAB Prov:MECCA DAMICO MD 04/25/21 Mirtazapine (REMERON) 30 Mg Tab, 1 TAB PO QPM, #30 TAB Prov:MECCA DAMICO MD 04/25/21 Albuterol Sulfate (VENTOLIN MDI) 90 Mcg Ih, 90 MCG IN Q6HPRN PRN, #1 INHALER Prov:MECCA DAMICO MD 04/24/21 Furosemide (Lasix) 40 Mg Tab, 40 MG PO BID, #60 TAB Prov:MECCA DAMICO MD 04/24/21 Aspirin (Aspir-Low) 81 Mg Tab, 81 MG PO DAILY, #30 TAB Prov:DOMINICK SCHMIDT MD 01/07/21 Atorvastatin Calcium (ATORVASTATIN CALCIUM) 20 Mg Tab, 20 MG PO HS, #30 TAB Prov:DOMINICK SCHMIDT MD 01/07/21 Potassium Chloride (POTASSIUM CHLORIDE CR) 10 Meq Tb, 10 MEQ PO BID, #60 TAB Prov:DOMINICK SCHMIDT MD 01/07/21 Information Source: Patient Mode of Arrival: Ambulatory Location: Bilateral Past Medical History PAST MEDICAL HISTORY: Anemia, CHF, COPD, High Lipids, HTN, [place] Surgical History: Appendectomy Family History Family History: Reviewed,noncontributory to illness, Family hx of DM Social History Smoker: Cigarettes, Less Than 1 Pack/Day Alcohol: Occasionally Drugs: Methamphetamine Lives In: Home Was a procedure done? Was a procedure done?: No Differential Diagnosis EXT Differential Diagnosis: Other (Leg swellingDdx include but not limited to DVT, ischemic limb, pitting edema, volume overload, CHF, cellulitis, hematoma, compartment syndrome, dependent edema, venous stasis.) X-Ray, Labs, Meds, VS Vital Signs Date Time Temp Pulse Resp B/P (MAP) Pulse Ox O2 Delivery O2 Flow Rate FiO2 12/28/24 18:20 83 18 154/97 (116) 94 12/28/24 15:52 152/97 12/28/24 15:46 Room Air* 0 21 12/28/24 15:45 79 18 152/97 (115) 98 12/28/24 13:52 99.3 93 17 159/105 (123) 98 99.3 Lab Test 12/28/24 17:23 12/28/24 15:02 12/28/24 14:11 Range/Units Troponin I High Sensitivity 39 44 41 </=54 ng/L White Blood Count 7.8 4.4-10.8 10^3/uL Red Blood Count 5.45 4.5-5.90 10^6/uL Hemoglobin 13.0 L 13.5-17.5 g/dL Hematocrit 39.6 L 41.0-53.0 % Mean Corpuscular Volume 72.6 L 80.0-100.0 fL Mean Corpuscular Hemoglobin 23.9 L 28.0-32.0 pg Mean Corpuscular Hemoglobin Concent 32.9 32.0-36.0 g/dL Red Cell Distribution Width 20.7 H 11.8-14.3 % Platelet Count 221 140-450 10^3/uL Mean Platelet Volume 8.3 6.9-10.8 fL Neutrophils (%) (Auto) 70.2 37.0-80.0 % Lymphocytes (%) (Auto) 18.0 10.0-50.0 % Monocytes (%) (Auto) 9.9 0.0-12.0 % Eosinophils (%) (Auto) 0.8 0.0-7.0 % Basophils (%) (Auto) 1.1 0.0-2.0 % Neutrophils # (Auto) 5.4 1.6-8.6 10 ^3/uL Lymphocytes # (Auto) 1.4 0.4-5.4 10 ^3/uL Monocytes # (Auto) 0.8 0-1.3 10 ^3/uL Eosinophils # (Auto) 0.1 0-0.8 10 ^3/uL Basophils # (Auto) 0.1 0-0.2 10 ^3/uL Nucleated Red Blood Cells 0.1 % Erythrocyte Sedimentation Rate 8 0-20 mm/hr Sodium Level 146 H 136-145 mmol/L Potassium Level 3.3 L 3.5-5.1 mmol/L Chloride Level 109 H 98-107 mmol/L Carbon Dioxide Level 26 20-31 mmol/L Anion Gap 11 5-15 Blood Urea Nitrogen 13 9-23 mg/dL Creatinine 1.18 0.700-1.30 mg/dL Glomerular Filtration Rate Calc 73 >90 mL/min BUN/Creatinine Ratio 11.0 10.0-20.0 Serum Glucose 87 74-106 mg/dL Lactic Acid Level 2.0 0.4-2.0 mmol/L Calcium Level 10.0 8.7-10.4 mg/dL Total Bilirubin 0.8 0.2-1.0 mg/dL Aspartate Amino Transferase (AST) 18 13-40 U/L Alanine Aminotransferase (ALT) 18 7-40 U/L Alkaline Phosphatase 65 46-116 U/L C-Reactive Protein High Sensitivity 0.15 <1.0 mg/dL B-Type Natriuretic Peptide 177.02 0-100 pg/mL Total Protein 6.8 5.7-8.2 g/dL Albumin 4.4 3.2-4.8 g/dL [place] [address] Ph: [phone] DIAGNOSTIC IMAGING Diagnostic Imaging Report : [id number] Signed PATIENT: STEFANIE SPENCER ACCT: [id number] UNIT: [id number] : 1970 LOC: ER ROOM / BED: / AGE / SEX: 54 / M ADM STATUS: REG ER SERVICE 1404 ORDERING PHYSICIAN: RUBY DENTON DO PROCEDURE(s): CXRP - CHEST PORTABLE REASON: sob ORDER NUMBER(s): [id number], ACCESSION NUMBER(s): [id number] INDICATION: sob TECHNIQUE: Frontal view of the chest. COMPARISON: CHEST PORTABLE on DOS: 07/03/21, CHEST PORTABLE on DOS: 05/04/21, CHEST XRAY 1 VIEW on DOS: 04/22/21, CHEST PORTABLE on DOS: 02/22/21, CHEST PORTABLE on DOS: 01/05/21 FINDINGS: . The heart and mediastinal contours are grossly unremarkable. There is no evidence of pleural disease. The lungs are clear. The bony structures of the chest are intact without fracture. IMPRESSION: 1. No evidence of acute disease. ATED BY: HERMAN RILEY MD DICTATED DATE/TIME: 12/28/241431 SIGNED BY: HERMAN RILEY MD SIGNED DATE/TIME: 12/28/241431 CC: Time of 1ST Reevaluation: 00:00 Reevaluation 1ST: N/A Patient Education/Counseling: Diagnosis, Treatment Family Education/Counseling: No Family Present Comments Patient presented with the above HPI.----bilateral lower extremity pitting edema--workup was initiated. patient was found with the above mentioned diagnosis. the following medications were ordered: please refer to order lists of meds and tests obtained by myself Dr. Denton. Patient ED course and VS have been stabilized. Patient has been reassessed in the ED and remained in a stable condition. Pertinent incidental findings were discussed with the patient and/or family. Patient/family voices understanding and is agreeable with plan. Patient has been observed in the ED adequate length of time to insure improvement/stability. Escalation of care considered: Consideration of escalation to observation or admission Patient is not hypoxic. Patient is not tachycardic. Patient isn't requiring supplemental oxygen. Patient has no respiratory distress. Patient was DISCHARGED home in a stable condition. All the reports of any imaging studies that were ordered by myself were reviewed by myself. Departure 1 Departure Time of Disposition: 17:34 Impression: Primary Impression: Pitting edema Disposition: HOME / SELF CARE / HOMELESS Condition: Stable Additional Instructions: Additional instructions: You MUST follow-up with your primary care/family doctor in 1 to 2 days. If you are unable to see your primary care/family doctor, please return to our emergency room for re-assessment and re-evaluation in 1 to 2 days. Return to the emergency room here in our facility or to the nearest ER [facility] if your symptoms change or worsen. CONSULTATIONS: you MUST Follow-up for consultation as soon as possible with: -cardiology in 1-2 days. Please call for appointment. You MUST call the consultants office yourself to make an appointment. You may need to arrange that through your insurance and/or your primary/family doctor. If you are unable to see the media sales consultant in 1 to 2 days, you must return to our emergency room (or any other ER of your choice) for re-assessment and re- evaluation. Adequate fluid hydration. Wear compression stockings. Leg elevation. Salt restrictions. Below is a copy of your radiological report for follow up: e-Prescriptions Furosemide (Lasix) 20 Mg Tb 1 TAB PO DAILY for 5 Days, #5 TAB 0 Refills Prov: RUBY DENTON DO 12/28/24 Discharged With: Self Critical Care Note Critical Care Time?: No RUBY DENTON DO Dec 28, 2024 14:10
[2024-12-28 14:34] LABS: Basophils # (auto) 0.1 10 ^3/uL (0-0.2); Basophils % (auto) 1.1 % (0.0-2.0); Eosinophils # (auto) 0.1 10 ^3/uL (0-0.8); Lymphocytes # (auto) 1.4 10 ^3/uL (0.4-5.4); Monocytes # (auto) 0.8 10 ^3/uL (0-1.3); Nucleated Red Blood Cells % 0.1 %
--- NOTE | 2024-12-28 14:34 | DVH ---
INDICATION: sob TECHNIQUE: Frontal view of the chest. COMPARISON: CHEST PORTABLE on DOS: 07/03/21, CHEST PORTABLE on DOS: 05/04/21, CHEST XRAY 1 VIEW on DO S: 04/22/21, CHEST PORTABLE on DOS: 02/22/21, CHEST PORTABLE on DOS: 01/05/21 FINDINGS: . The heart and mediastinal contours are grossly unremarkable. There is no evidence of pleural disea se. The lungs are clear. The bony structures of the chest are intact without fracture. IMPRESSION: 1. No evidence of acute disease.
[2024-12-28 14:36] LABS: Eosinophils % (auto) 0.8 % (0.0-7.0); Hematocrit 39.6 % (41.0-53.0); Mean Corpuscular Hemoglobin 23.9 pg (28.0-32.0); Mean Corpuscular Hgb Conc. 32.9 g/dL (32.0-36.0); Mean Corpuscular Volume 72.6 fL (80.0-100.0); Monocytes % (auto) 9.9 % (0.0-12.0); Neutrophils # (auto) 5.4 10 ^3/uL (1.6-8.6); Neutrophils % (auto) 70.2 % (37.0-80.0); Platelet Count (auto) 221 10^3/uL (140-450); Red Blood Cells 5.45 10^6/uL (4.5-5.90); White Blood Cell 7.8 10^3/uL (4.4-10.8)
[2024-12-28 14:37] LABS: Red Cell Distribution Width 20.7 % (11.8-14.3)
[2024-12-28 14:52] LABS: Alanine Aminotransferase 18 U/L (7-40); Albumin 4.4 g/dL (3.2-4.8); Alkaline Phosphatase 65 U/L (46-116); Anion Gap 11 (5-15); Aspartate Aminotransferase 18 U/L (13-40); Bilirubin, Total 0.8 mg/dL (0.2-1.0); Blood Urea Nitrogen 13 mg/dL (9-23); CRP High Sensitivity 0.15 mg/dL (<1.0); Carbon Dioxide 26 mmol/L (20-31); Glucose 87 mg/dL (74-106); Total Protein 6.8 g/dL (5.7-8.2)
[2024-12-28 14:54] LABS: Chloride 109 mmol/L (98-107); Potassium 3.3 mmol/L (3.5-5.1); Sodium 146 mmol/L (136-145)
[2024-12-28 15:36] LABS: Erythrocyte Sedimentation Rate 8 mm/hr (0-20)
[2024-12-28] MEDS: FUROSEMIDE 20 MG/2 ML VIAL IV ONE (15:52)
[2024-12-28] MEDS: POTASSIUM CHL 20 Meq TABLET PO ONE (17:13)
[2024-12-28] MEDS ORDERED: FURO1TAB33 PO (17:36)
[2024-12-28 18:20] VITALS: BP 154/97; PULSE 83; RESP 18; O2SAT 94
== END 2024-12-28 18:23 | disposition home or self-care (01) ==
LOC: ER 13:34
DX: R60.9 Edema, unspecified (principal); F17.210 Nicotine dependence, cigarettes, uncomplicated; F10.90 Alcohol use, unspecified, uncomplicated; F12.90 Cannabis use, unspecified, uncomplicated; I11.0 Hypertensive heart disease with heart failure; I50.9 Heart failure, unspecified; J44.9 Chronic obstructive pulmonary disease, unspecified; Z86.2 Personal history of diseases of the blood and blood-forming organs and certain disorders involving the immune mechanism; E78.5 Hyperlipidemia, unspecified; Z79.899 Other long term (current) drug therapy; Z88.5 Allergy status to narcotic agent; Z79.82 Long term (current) use of aspirin; Z90.49 Acquired absence of other specified parts of digestive tract; Z79.01 Long term (current) use of anticoagulants; Y90.9 Presence of alcohol in blood, level not specified
CPT/HCPCS: 36415; 71045; 80053; 83605; 83880; 84484; 85025; 85652; 86141; 96374; 99284; J1940